=== PATIENT | male | born 1960 | race Caucasian/White ===

== ENCOUNTER 2020-10-05 14:37 | Outpatient (CLI) | payer OTHER ==
--- NOTE | 2020-10-05 15:22 | ULT ---
EXAM: Vein mapping for dialysis access HISTORY: End-stage renal disease. TECHNIQUE: Multiplanar grayscale and color Doppler images were obtained in a bilateral upper extremit y venous ultrasound. Spectral analysis of the Doppler waveforms of the vessels were performed. FINDINGS: The bilateral internal jugular veins and subclavian veins are patent without evidence of th rombus. Right brachial artery 5.6 mm Right radial artery 3.0 mm Right ulnar artery 3.5 mm Left brachial artery 5.0 mm Left radial artery 4.4 mm Left ulnar artery 2.5 mm RIGHT CEPHALIC VEIN in millimeters 3.7 -- Shoulder 4.0 -- Upper arm 3.6 -- Mid upper arm 4.4-- Just proximal to the elbow 3.5 -- Just distal to the elbow 320 -- Forearm 3.6 -- Wrist RIGHT BASILIC VEIN in millimeters Not visualized -- Shoulder Not visualized -- Upper arm 2.1 -- Mid upper arm 1.8 -- Just proximal to the elbow 3.0 -- Just distal to the elbow 1.9 -- Forearm 1.0 -- Wrist LEFT CEPHALIC VEIN in millimeters 3.5 -- Shoulder 1.5 -- Upper arm 1.7 -- Mid upper arm 1.9 -- Just proximal to the elbow 1.6 -- Just distal to the elbow 1.8 -- Forearm 1.2 -- Wrist LEFT BASILIC VEIN in millimeters Not visualized -- Shoulder 7.2 -- Upper arm 4.9 -- Mid upper arm 5.2 -- Just proximal to the elbow 1.4 -- Just distal to the elbow 1.9 -- Forearm 1.9 -- Wrist IMPRESSION: Vein mapping for dialysis access as above
== END 2020-10-05 14:38 | disposition home or self-care (01) ==
LOC: ULT 14:37
PROVIDERS: ATTEND Internal Medicine Nephrology
DX: N18.5 Chronic kidney disease, stage 5 (principal)
CPT/HCPCS: 93970

== ENCOUNTER 2020-10-14 10:22 | Inpatient (IN) | payer OTHER ==
--- NOTE | 2020-10-14 11:21 | RAD ---
Exam: Chest one view HISTORY:Dyspnea. Swelling. Comparison: 08/02/2017 FINDINGS: Cardiac silhouette:Mild cardiomegaly. Aorta: Unremarkable Pulmonary vessels: Mild pulmonary vascular congestion Costophrenic angles: Clear LUNGS: No masses or consolidation. Pneumothorax: None Osseous abnormalities: None IMPRESSION: Cardia megaly. Pulmonary vascular congestion. Volume overload.
[2020-10-14 11:43] LABS: #Basophils 0.1 thou/uL (0.0-0.2); #Eosinphils 0.7 thou/uL (0.0-0.7); #Lymphocytes 1.6 thou/uL (1.20-3.40); #Monocytes 1.4 thou/uL (0.11-0.59); #Neutrophils 10.7 thou/uL (1.40-6.50); %Basophils 0.9 % (0.0-1.0); %Eosinophils 4.7 % (0.0-10.0); %Lymphocytes 10.8 % (21.0-51.0); %Monocytes 9.8 % (0.0-10.0); %Neutrophils 73.8 % (42.0-75.0); Mean Corpuscular HGB CONC 32.8 g/dL (32.0-36.0); Mean Corpuscular Hemoglobin 33.3 pg (27.0-31.0); Mean Platelet Volume 8.4 fL (7.4-10.4); Platelet Count 274 thou/uL (130-400); RBC Distribution Width 12.4 % (11.5-14.5); Red Blood Cell (RBC) Count 2.09 mill/uL (4.70-6.10); White Blood Cell (WBC) Count 14.5 thou/uL (4.8-10.8)
[2020-10-14 11:43] LABS: ALT (SGPT) 9 U/L (8-55); AST (SGOT) 7 U/L (5-34); Albumin 3.4 g/dL (3.5-5.0); Alkaline Phosphatase 63 U/L (40-110); Anion Gap 22 mmol/L (10-20); BUN (Urea Nitrogen) 73 mg/dL (8.4-25.7); Bilirubin, Total 0.2 mg/dL (0.2-1.2); Calc. Creatinine Clearance 0 mL/min (70-130); Calcium 7.9 mg/dL (7.8-10.44); Carbon Dioxide 14 mmol/L (22-29); Chloride 108 mmol/L (98-107); Globulin 3.6 g/dL (2.4-3.5); Glucose 121 mg/dL (70-105); Sodium 139 mmol/L (136-145)
[2020-10-14 11:46] LABS: Band 3 % (5-11); Eosinophils 4 % (0-10); Lymphocytes 9 % (21-51); MDiff Complete? YES; Metamyelocyte 5 % (0-0); Monocytes 7 % (0-10); Myelocyte 5 % (0-0); Neutrophil 66 % (42-75); Reactive Lymphocytes 1 % (0-10)
[2020-10-14] MEDS ORDERED: CEFAZOLIN 2 GM in Premix Bag 1 BAG IVPB SCH (12:30)
[2020-10-14] MEDS ORDERED: Heparin 10,000 UNITS/ 10 ML VIAL ONE (12:50)
--- NOTE | 2020-10-14 14:04 | PDOC.HHP ---
Hospitalist GAVINO CAMPOS History of Present Illness: Mr. Marroquin is a 60-year-old male with past medical history of hypertension, hyperlipidemia, asthma, end-stage renal disease not yet on dialysis, renal cancer status post right nephrectomy, partial left nephrectomy, status post splenectomy who presents emergency room for worsening swelling and shortness of breath. Patient was supposed to have a tunneled dialysis placed next week to initiate dialysis, however over the past few days he has had worsening lower extremity swelling and this morning developed shortness of breath. Patient denies chest pain, palpitations. He endorses vague abdominal pain, denies nausea vomiting diarrhea. In emergency room initial vital signs 168/91, 95, 97% on room air. EKG shows sinus tachycardia with no ST segment changes, troponin 0.026. WBC 14.5, H/H 7.0/41.2. BUN/CR 73/9.35, sodium 139, potassium 5.0. Bicarb 14. Anion gap 22. Central line was placed for urgent dialysis in the emergency room. Patient follows with Dr. Schulz of nephrology. Allergies/Adverse Reactions: Allergy/AdvReac Type Severity Reaction Status Date / Time No Known Allergies Allergy Unverified 10/14/20 12:24 Home Medications: Medication Instructions Recorded Confirmed Type ALButerol Sulfate [Ventolin Neb] 1 vial NEB TID 10/15/20 10/15/20 History Albuterol Sulfate [Proair 2 puff IH Q6H PRN 10/15/20 10/15/20 History Digihaler] Amlodipine [Norvasc] 10 mg PO DAILY 10/15/20 10/15/20 History Atorvastatin Calcium 40 mg PO DAILY 10/15/20 10/15/20 History Metoclopramide HCl 1 tab PO TID 10/15/20 10/15/20 History Phenytoin Sodium Extended 3 cap PO HS 10/15/20 10/15/20 History [Dilantin ER] Ranolazine [Ranexa] 1 tab PO BID 10/15/20 10/15/20 History Torsemide 3 tab PO DAILY 10/15/20 10/15/20 History Hospitalist Exam General Appearance: NAD, awake alert General - other findings: Anasarca Eye: PERRL, anicteric sclera ENT: normocephalic atraumatic, no oropharyngeal lesions, moist mucosa Neck: supple, symmetric, no carotid bruit, JVD Heart: RRR, no murmur, no gallops, no rubs, normal peripheral pulses Heart - other findings: Distant heart sounds Respiratory: no tachypnea Respiratory - other findings: Lungs with rhonchi bilaterally, abnormal chest expansion Gastrointestinal: no palpable masses, no guarding, tender to palpation, distended, diminished bowl sounds Gastrointestinal - other findings: Abdomen severely distended with flank bulging Extremities: 2+ LE edema Extremities - other findings: Significant pitting edema bilaterally Skin: normal turgor Neurological: cranial nerve grossly intact, normal sensation to touch, no weakness, no focal deficits, no new deficit Musculoskeletal: normal tone, normal strength, no muscle wasting Psychiatric: normal affect, normal behavior, A&O x 3 Hospitalist Results Result Diagrams: 10/19/20 05:10 10/19/20 05:10 Lab results: WBC 14.5 thou/uL (4.8-10.8) H 10/14/20 11:02 Hgb 7.0 g/dL (14.0-18.0) L 10/14/20 11:02 Hct 21.2 % (42.0-52.0) L 10/14/20 11:02 MCV 101.0 fL (78.0-98.0) H 10/14/20 11:02 Plt Count 274 thou/uL (130-400) 10/14/20 11:02 Neutrophils % 73.8 % (42.0-75.0) 10/14/20 11:02 Band Neuts % (Manual) 3 % (5-11) L 10/14/20 11:02 Sodium 139 mmol/L (136-145) 10/14/20 10:51 Potassium 5.0 mmol/L (3.5-5.1) 10/14/20 10:51 Chloride 108 mmol/L (98-107) H 10/14/20 10:51 Carbon Dioxide 14 mmol/L (22-29) L 10/14/20 10:51 BUN 73 mg/dL (8.4-25.7) H 10/14/20 10:51 Creatinine 9.35 mg/dL (0.7-1.3) H 10/14/20 10:51 Glucose 121 mg/dL (70-105) H 10/14/20 10:51 Calcium 7.9 mg/dL (7.8-10.44) 10/14/20 10:51 Total Bilirubin 0.2 mg/dL (0.2-1.2) 10/14/20 10:51 AST 7 U/L (5-34) 10/14/20 10:51 ALT 9 U/L (8-55) 10/14/20 10:51 Alkaline Phosphatase 63 U/L (40-110) 10/14/20 10:51 Troponin I 0.026 ng/mL (< 0.028) 10/14/20 10:51 B-Natriuretic Peptide 170.7 pg/mL (0-100) H 10/14/20 10:51 Serum Total Protein 7.0 g/dL (6.0-8.3) 10/14/20 10:51 Albumin 3.4 g/dL (3.5-5.0) L 10/14/20 10:51 Hospitalist H&P A/P Plan: Anasarca 60-year-old male past medical history of hypertension, hyperlipidemia, asthma end-stage renal not yet on dialysis, renal cancer who presents in acute fluid overload. Patient was scheduled to have fistula and catheter placement next week, however he developed worsening fluid overload and shortness of breath prompting him to present to the emergency room. Chest x-ray with vascular congestion, patient diffusely anasarca, exam with ascites, 2+ pitting edema. BNP 170.7, although can be falsley low in patient's with obesity. Will obtain cardiac echo to assess EF. Central line was placed in emergency room for emergent dialysis. Patient follows with Dr. Schulz of nephrology. Dr. Loco is on-call today who will initiate dialysis. Patient still makes urine, will start on IV lasix. Plan -IV Lasix Urgent dialysis -Cardiac echo Nephrology consult Supplemental oxygen as needed Dyspnea P/w dyspnea, orthopnea. CXR showed vascular congestion. Patient overtly fluid overloaded on exam 2/2 ESRD not yet on dialysis. Makes scant amount of urine. BNP 170.7. Currently maintaining O2 saturation on RA. COVID pending. Plan -COVID pending -Supplemental O2 PRN -Urgent dialysis, treatment as above Ascites Patient with prominent abdominal ascites. Likely 2/2 fluid overload in setting of ESRD. Given hx of renal cancer, some concern for portal vein thrombosis or thrombotic extension from kidney's to IVC. Will obtain CT abdomen/pelvis scan. LFTs wnl AST/ALT /. Alk phos 63. Plan -Urgent dialysis -CT abdomen pelvis -Trend LFTs Leukocytosis WBC 14.5. Afebrile. No obvious source of infection. Will check UCx, Sputum Cx, blood Cx. Low suspicion for infectious process at this time. Lactic acid 1.0. Will trend and closely monitor. Plan -STAT lactic acid -IV abx, will hold on IVF given pt's overload status -Follow blood cx -De-escalate abx when possible -Trend WBC, fever curve Anion gap metabolic acidosis Anion gap metabolic acidosis. Anion gap 22. Likely secondary to uremia. BUN/CR 73/9.35. Will check stat lactic acid and continue to monitor. Patient's respiratory status is stable. Plan Trend electrolytes, calcium, Phos Tox screen Stat lactic acid Nephrology consulted, recommendations appreciated End-stage renal disease History of ESRD not yet on dialysis. Plans for dialysis next week. Follows with Dr. Schulz. See plan as above. Anemia of chronic disease Patient with anemia of chronic disease secondary to end-stage renal disease. H/H 7.0/21.2. Patient denies dizziness, lightheadedness. Denies melena, hematochezia. Will hold off on transfusion since patient is severely fluid overloaded. We will continue to trend and transfuse as needed. Will consult nephrology for question of EPO initiation. Plan Trend H&H Transfuse for hemoglobin less than 7.0 Nephrology consult History of renal cancer History of renal cancer status post right nephrectomy, left partial nephrectomy. Patient is not on active chemotherapy treatment. He does have a family history of this. Given patient's history of renal cancer concern for coagulopathy. We will continue patient on SQ heparin. Patient's SOB likely 2/2 fluid overload, although patient is at increased risk of clotting. Will pursue CT scan of abdomen to assess for portal vein thrombosis or clot propagation of IVC. Plan -CT scan -DVT prophylaxis with sq heparin Asthma Hx of asthma/COPD. Will continue home advair and make albuterol nebs available. Hyperlipidemia Will continue home statin, once meds reconciled. Hypertension Will continue home medications once meds are reconciled. DVT prophylaxis- SQ Heparin FULL CODE
[2020-10-14 14:17] LABS: SARS-CoV-2 NAA Rapid Test Not Detected (NotDetected)
[2020-10-14] MEDS ORDERED: Vancomycin 1 GM in Premix Bag 1 BAG IVPB SCH (14:45)
[2020-10-14] MEDS ORDERED: Iopamidol-370 76% 500 ML 1 ML ONE (15:00)
[2020-10-14] MEDS ORDERED: Furosemide 100 MG/10 ML VIAL SLOW IVP SCH (15:00)
[2020-10-14] MEDS ORDERED: diphenhydrAMINE 50 MG/ML VIAL IVP SCH (16:00)
[2020-10-14 16:33] LABS: Hemoglobin 6.5 g/dL (14.0-18.0)
--- NOTE | 2020-10-14 16:36 | CT ---
EXAM: CT Chest Abd Pelvis W Con PROVIDED CLINICAL HISTORY: Dyspnea COMPARISON: CT abdomen and pelvis 11/04/2012 FINDINGS: The heart, pericardium and great vessels demonstrate an unremarkable CT appearance, with the exceptio n of coronary calcium. There is trace pericardial fluid. There is a small amount of pleural fluid bilaterally. The lungs are free of significant opacity. Ther e is no evidence for pneumothorax. The airway appears patent and of normal caliber. There is no evidence for thoracic lymph node enlargement. There are innumerable subcentimeter hypodense foci involving the right kidney, statistically reflecti ng cysts but too small to definitively characterize. In addition, there is a suspected 2.6 cm mass involving the anterior aspect of the midportion of the right kidney. The spleen and left kidney are surgically absent. Presumed splenule seen within the left upper quadra nt posteriorly. The pancreas, liver and adrenal glands appear unremarkable. There is no bowel dilatation, inflammatory fat stranding, free fluid or lymph node enlargement appare nt. A right femoral venous catheter is noted, the tip of which terminates in the right common iliac vein. The regional major vascular structures appear otherwise unremarkable. The osseous structures demonstrate no concerning lytic or blastic lesions. IMPRESSION: 1. Trace bilateral pleural fluid and trace pericardial fluid. 2. Suspected right renal mass. Correlation with renal ultrasound is recommended. 3. No evidence for additional potentially acute process involving abdomen and pelvis.
[2020-10-14 16:39] LABS: INR-International Normal Ratio 1.1; PTT 27.7 sec (22.9-36.1); Prothrombin Time 14.6 sec (12.0-14.7)
[2020-10-14 17:02] LABS: Calcium 7.6 mg/dL (7.8-10.44); Phosphorus 7.2 mg/dL (2.3-4.7)
[2020-10-14 17:22] LABS: HBSAg Index 0.26 S/CO (0-0.99); Hep B Surf Ag Non-Reactive S/CO (NonReactive)
[2020-10-14 18:25] LABS: Acetaminophen Less than 6.0 mcg/mL (10.0-30.0); Alcohol Less than 10 mg/dL (Less than 10); Magnesium 1.7 mg/dL (1.6-2.6); Salicylate Less than 8.0 mg/dL (15.0-30.0)
[2020-10-14] MEDS: Heparin 5,000 UNITS/ML VIAL SC SCH ×2 (19:22→21:27)
--- NOTE | 2020-10-14 19:56 | CON ---
DATE OF CONSULTATION: 10/14/2020 CONSULTING PHYSICIAN: Abbey Lewis PA-C REASON FOR CONSULTATION: Worsening renal labs. REASON FOR ADMISSION: Shortness of breath. HISTORY OF PRESENT ILLNESS: This is a 60-year-old male with history of chronic kidney disease stage 5, hypertension, hyperlipidemia, asthma, and history of right nephrectomy, who came to the hospital with shortness of breath and worsening edema. The patient has been followed by Dr. Schulz, has been having worsening labs. He was followed for CKD stage 5, but lately he has been having more shortness of breath, more swelling, was advised to come to the hospital to begin dialysis and the patient showed up today to the ER and lab shows that his GFR is around 6, creatinine is 9.3, potassium 5.0. He was also anemic. PAST MEDICAL HISTORY: Positive for chronic kidney disease, stage 5; hypertension; hyperlipidemia; asthma; and renal cell carcinoma. PAST SURGICAL HISTORY: Left partial nephrectomy, right nephrectomy, and splenectomy. HOME MEDICATIONS: Reviewed. ALLERGIES: NO KNOWN DRUG ALLERGIES. SOCIAL HISTORY: No smoking, alcohol, or illicit drugs abuse. FAMILY HISTORY: The patient's daughter also had renal disease and she was on dialysis and she had transplant. REVIEW OF SYSTEMS: CONSTITUTIONAL: Negative for weight loss or gain, ability to conduct usual activities. SKIN: Negative for rash, itching. EYES: Negative for double vision, pain. ENT/MOUTH: Negative for nose bleeding, neck stiffness, pain, tenderness. CARDIOVASCULAR: Negative for palpitations, dyspnea on exertion, orthopnea. RESPIRATORY: Negative for shortness of breath, wheezing, cough, hemoptysis, fever or night sweats. GASTROINTESTINAL: Negative for poor appetite, abdominal pain, heartburn, nausea, vomiting, constipation, or diarrhea. GENITOURINARY: Negative for urgency, frequency, dysuria, nocturia. MUSCULOSKELETAL: Negative for pain, swelling. NEUROLOGIC/PSYCHIATRIC: Negative for anxiety, depression. ALLERGY/IMMUNOLOGIC: Negative for skin rash, bleeding tendency. PHYSICAL EXAMINATION: GENERAL: This is a well-built male, in no apparent distress. VITAL SIGNS: Reviewed. HEENT: Atraumatic, normocephalic. Oral mucosa moist. NECK: Supple. CV: S1, S2. Rate and rhythm are regular. RESPIRATORY: Clear. GASTROINTESTINAL: Abdomen is soft, distended. MUSCULOSKELETAL: 2+ edema. DERMATOLOGIC: No skin rash. NEUROLOGICAL: Alert and awake. PSYCHIATRIC: Mood and affect normal. LABORATORY DATA: Potassium 5.0, BUN is 73, and creatinine is 9.3. ASSESSMENT AND PLAN: 1. End-stage renal disease. Plan to start dialysis. The patient already had dialysis catheter. 2. Edema. 3. History of hypertension. 4. Proteinuria. 5. Anemia of chronic disease. We will add Epogen. PLAN: 1. To start on dialysis. We will have PPD skin test and also dialysis panel. We will have Case Management consult for outpatient placement. 2. We will start Epogen with dialysis. We will follow. Job ID: [id number]
[2020-10-14] MEDS ORDERED: Cefepime 2 GM in Sodium Chloride 0.9% 100 ML IVPB SCH (21:00)
[2020-10-15 00:08] VITALS: BMI 46.5
[2020-10-15] MEDS: Acetaminophen 325 MG TAB PO PRN ×3 (00:09→23:38)
[2020-10-15] MEDS: hydrALAZINE 20 MG/ML VIAL SLOW IVP PRN ×4 (00:29→23:39)
[2020-10-15 02:24] LABS: Hemoglobin 7.4 g/dL (14.0-18.0)
[2020-10-15 03:42] LABS: #Basophils 0.1 thou/uL (0.0-0.2); #Eosinphils 0.4 thou/uL (0.0-0.7); #Lymphocytes 2.1 thou/uL (1.20-3.40); #Monocytes 1.8 thou/uL (0.11-0.59); #Neutrophils 9.6 thou/uL (1.40-6.50); %Basophils 0.7 % (0.0-1.0); %Eosinophils 2.8 % (0.0-10.0); %Lymphocytes 14.9 % (21.0-51.0); %Monocytes 12.6 % (0.0-10.0); Hemoglobin 7.4 g/dL (14.0-18.0); Mean Corpuscular HGB CONC 33.1 g/dL (32.0-36.0); Mean Corpuscular Hemoglobin 32.1 pg (27.0-31.0); Mean Platelet Volume 9.1 fL (7.4-10.4); Platelet Count 248 thou/uL (130-400); RBC Distribution Width 13.8 % (11.5-14.5)
[2020-10-15 04:05] LABS: Anion Gap 20 mmol/L (10-20); BUN (Urea Nitrogen) 54 mg/dL (8.4-25.7); Calc. Creatinine Clearance 21 mL/min (70-130); Calcium 7.9 mg/dL (7.8-10.44); Carbon Dioxide 15 mmol/L (22-29); Chloride 106 mmol/L (98-107); Glucose 75 mg/dL (70-105); Potassium 4.3 mmol/L (3.5-5.1); Sodium 137 mmol/L (136-145)
[2020-10-15 04:19] LABS: HBSAB Concentration Less than 8.00 mIU/mL; Hep B Core Total Ab Non-Reactive (NonReactive); Hep B Core Total Index 0.09 S/CO (0-0.79); Hep B Surf AB Non-Reactive (NonReactive); Hep B Surf Ag Non-Reactive S/CO (NonReactive); Hep C IgG Ab Non-Reactive (NonReactive); Hep C Index 0.12 S/CO (0-0.79)
[2020-10-15 06:57] LABS: Bacteria/HPF None Seen HPF (None Seen); Bilirubin Negative (Negative); Blood, Urine 1+ (Negative); Clarity Clear (Clear); Glucose, Urine (Dipstick) 30 mg/dL (Negative); Ketone, Urine Negative (Negative); Leukocyte 25 Leu/uL (Negative); Nitrite Negative (Negative); Protein, Urine (Dipstick) 200 mg/dL (Neg-Trace); RBC/HPF 0-3 HPF (0-3); Squamous Epithelial 0-3 HPF (0-3); Urobilinogen Normal mg/dL (Less than 2)
--- NOTE | 2020-10-15 07:36 | PDOC.HOSPP ---
- Subjective Encounter Date: 10/15/20 Encounter Time: 10:00 Subjective: Patient reports some mild shortness of breath on and off but mostly resolved since dialysis. No other complaints. - Objective Vital Signs & Weight: Vital Signs (12 hours) Temp Pulse Pulse Resp BP BP BP 10/15/20 06:25 99 173/86 H 10/15/20 03:20 98.3 F 98 16 173/88 H 10/15/20 00:29 97 177/91 H 10/15/20 00:15 98 F 97 16 177/91 H 10/14/20 22:01 98.2 F 96 20 155/92 H 10/14/20 21:34 98.3 F 96 20 167/89 H 10/14/20 20:20 98.3 F 96 20 167/89 H Pulse Ox 10/15/20 06:25 10/15/20 03:20 94 L 10/15/20 00:29 10/15/20 00:15 95 10/14/20 22:01 95 10/14/20 21:34 94 L 10/14/20 20:20 95 Weight Weight 315 lb 0.649 oz I&O: 10/14/20 10/15/20 10/16/20 06:59 06:59 06:59 Intake Total 350 Balance 350 Result Diagrams: 10/15/20 08:20 10/15/20 02:16 Hospitalist ROS - Review of Systems Constitutional: denies: fever, chills Respiratory: reports: shortness of breath. denies: cough Cardiovascular: denies: chest pain, palpitations Gastrointestinal: denies: nausea, vomiting - Medication Medications: Active Medications Generic Name Dose Route Start Last Admin Trade Name Freq PRN Reason Stop Dose Admin Acetaminophen 650 mg 10/14/20 22:49 10/15/20 00:09 Acetaminophen 325 Mg Tab PO 650 mg Q4H PRN Administration Fever/Mild Pain Heparin Sodium (Porcine) 5,000 units 10/14/20 15:00 10/14/20 21:27 Heparin 5,000 Units/Ml Vial SC 5,000 units TID JD Administration Hydralazine HCl 10 mg 10/14/20 17:22 10/15/20 06:25 Hydralazine 20 Mg/Ml Vial SLOW IVP 10 mg Q4H PRN Administration SBP GREATER THAN 160 Sodium Chloride 10 ml 10/14/20 17:34 01/23/21 06:26 Flush - Normal Saline 10 Ml Syringe IVF 10 ml PRN PRN Administration Saline Flush - Exam General Appearance: NAD, awake alert ENT: moist mucosa Heart: RRR, no murmur, no gallops, no rubs Respiratory: CTAB, no wheezes, no rales, no ronchi Gastrointestinal: soft, non-tender, non-distended, normal bowel sounds Psychiatric: normal affect, normal behavior, A&O x 3 Hosp A/P - Plan Anasarca 60-year-old male past medical history of hypertension, hyperlipidemia, asthma end-stage renal not yet on dialysis, renal cancer who presents in acute fluid overload. Patient was scheduled to have fistula and catheter placement next week, however he developed worsening fluid overload and shortness of breath prompting him to present to the emergency room. Chest x-ray with vascular congestion, patient diffusely anasarca, exam with ascites, 2+ pitting edema. BNP 170.7, although can be falsley low in patient's with obesity. Will obtain cardiac echo to assess EF. Central line was placed in emergency room for emergent dialysis. Patient follows with Dr. Schulz of nephrology. Dr. Loco is on-call and decided to initiate dialysis. Plan Urgent dialysis -Cardiac echo Nephrology consulted Supplemental oxygen as needed Dyspnea P/w dyspnea, orthopnea. CXR showed vascular congestion. Patient overtly fluid overloaded on exam 2/2 ESRD not yet on dialysis. Makes scant amount of urine. BNP 170.7. Currently maintaining O2 saturation on RA. COVID negative. Plan -Supplemental O2 PRN -improved with dialysis Ascites Patient with prominent abdominal ascites. Likely 2/2 fluid overload in setting of ESRD. Given hx of renal cancer, some concern for portal vein thrombosis or thrombotic extension from kidney's to IVC. Will obtain CT abdomen/pelvis scan. LFTs wnl AST/ALT /. Alk phos 63. Plan -Urgent dialysis -CT abdomen pelvis with renal mass Leukocytosis WBC 14.5. Afebrile. No obvious source of infection. Will check UCx, Sputum Cx, blood Cx. Low suspicion for infectious process at this time. Lactic acid 1.0. Will trend and closely monitor. Plan -STAT lactic acid -IV abx, will hold on IVF given pt's overload status -Follow blood cx- no growth to date -no fever and WBC unchanged, will d/c antibiotics Anion gap metabolic acidosis Anion gap metabolic acidosis. Anion gap 22. Likely secondary to uremia. BUN/CR 73/9.35. Will check stat lactic acid and continue to monitor. Patient's respiratory status is stable. Plan Trend electrolytes, calcium, Phos Tox screen Stat lactic acid Nephrology consulted, recommendations appreciated End-stage renal disease History of ESRD not yet on dialysis. Plans for dialysis next week. Follows with Dr. Schulz. See plan as above. Anemia of chronic disease Patient with anemia of chronic disease secondary to end-stage renal disease. H/H dropped so given one unit PRBC. May need EPO. Plan Trend H&H Transfuse for hemoglobin less than 7.0 Dr. Loco following History of renal cancer History of renal cancer status post right nephrectomy, left partial nephrectomy. Patient is not on active chemotherapy treatment. He does have a family history of this. Given patient's history of renal cancer concern for coagulopathy. We will continue patient on SQ heparin. Patient's SOB likely 2/2 fluid overload, although patient is at increased risk of clotting. CT without evidence of portal vein thrombosis. Plan -CT scan with renal mass -DVT prophylaxis with sq heparin Asthma Hx of asthma/COPD. Will continue home Advair and make albuterol nebs available. Hyperlipidemia Will continue home statin. Hypertension Will continue home medications. DVT prophylaxis- SQ Heparin FULL CODE CT Chest Abd Pelvis W Con IMPRESSION: 1. Trace bilateral pleural fluid and trace pericardial fluid. 2. Suspected right renal mass. Correlation with renal ultrasound is recommended. 3. No evidence for additional potentially acute process involving abdomen and pelvis.
[2020-10-15] MEDS: Tuberculin PPD 0.1 ML VIAL I-DERMAL SCH ×2 (07:38→22:13)
[2020-10-15] MEDS ORDERED: Non-Formulary Item 1 EACH (Albuterol Sulfate [Proair Digihaler] 90 MCG Aer.Pw.Bas) IH PRN (07:41)
[2020-10-15] MEDS ORDERED: Albuterol 200 PUFF (6.7GM INHALER) INH PRN (07:45)
[2020-10-15 08:53] LABS: Hemoglobin 8.1 g/dL (14.0-18.0)
[2020-10-15] MEDS ORDERED: Non-Formulary Item 1 EACH (Metoclopramide Hcl [Metoclopramide Hcl] 5 MG Tablet) PO SCH (09:00)
[2020-10-15] MEDS: Amlodipine 10 MG TAB PO SCH (09:43)
[2020-10-15] MEDS: Heparin 5,000 UNITS/ML VIAL SC SCH ×3 (09:43→20:54)
[2020-10-15] MEDS: Metoclopramide HCl 10 MG TAB PO SCH ×3 (09:43→20:54)
[2020-10-15] MEDS: Atorvastatin Calcium 40 MG TAB PO SCH (09:43)
[2020-10-15] MEDS ORDERED: Heparin 10,000 UNITS/ 10 ML VIAL ONE (12:47)
--- NOTE | 2020-10-15 18:48 | PRG ---
DATE OF SERVICE: 10/15/2020 SUBJECTIVE: Patient was seen and examined at bedside and overnight events noted. Patient denies any shortness of breath or chest pain or palpitation. No history of nausea or vomiting or diarrhea or fever or chills or cramps. OBJECTIVE: General: This is a well-built male, in no apparent distress. Vital Signs: Temperature . Heart rate 103. Respiratory rate 18. Blood pressure 178/97. HEENT: Atraumatic, normocephalic. Oral mucosa is moist. Neck: Supple. Cardiovascular: S1, S2 heard. Rate and rhythm regular. Respiratory: Clear to auscultation. Gastrointestinal: Abdomen is soft. Musculoskeletal: No tenderness. No edema. Dermatologic: No skin rash. Neurologic: Alert and awake and oriented x3. No focal neurologic deficits. Moving all the extremities. Psychiatric: Mood and affect normal. LABORATORY DATA: Potassium 4.3, BUN is 54, and creatinine is 7.4. ASSESSMENT AND PLAN: 1. End-stage renal disease. Continue dialysis as tolerated. 2. Edema. 3. Hypertension. 4. Anemia. I will add Epogen. 5. Follow up with case management director for outpatient placement. We will continue dialysis as tolerated. Job ID: [id number]
[2020-10-15] MEDS: EPOETIN ALFA-EPBX (ESRD) 10,000 UNIT/ML VIAL IVP SCH (20:54)
[2020-10-15 22:51] LABS: Hemoglobin 7.9 g/dL (14.0-18.0)
[2020-10-16] MEDS: hydrALAZINE 20 MG/ML VIAL SLOW IVP PRN ×2 (05:36→14:30)
[2020-10-16 06:55] LABS: Anion Gap 17 mmol/L (10-20); BUN (Urea Nitrogen) 37 mg/dL (8.4-25.7); Calc. Creatinine Clearance 27 mL/min (70-130); Calcium 8.2 mg/dL (7.8-10.44); Carbon Dioxide 21 mmol/L (22-29); Chloride 101 mmol/L (98-107); Glucose 110 mg/dL (70-105); Potassium 4.1 mmol/L (3.5-5.1); Sodium 135 mmol/L (136-145)
[2020-10-16 06:56] LABS: Band 2 % (5-11); Eosinophils 1 % (0-10); Hemoglobin 8.1 g/dL (14.0-18.0); Hypochromia SLIGHT = 6-15 cells (100X) (0-5/hpf); Lymphocytes 9 % (21-51); MDiff Complete? YES; Mean Corpuscular HGB CONC 32.5 g/dL (32.0-36.0); Mean Corpuscular Hemoglobin 31.4 pg (27.0-31.0); Mean Corpuscular Volume 96.7 fL (78.0-98.0); Mean Platelet Volume 8.6 fL (7.4-10.4); Monocytes 15 % (0-10); Neutrophil 73 % (42-75); Platelet Count 254 thou/uL (130-400); Platelet Morphology Comment Appears Adequate; RBC Distribution Width 13.9 % (11.5-14.5); Red Blood Cell (RBC) Count 2.58 mill/uL (4.70-6.10); White Blood Cell (WBC) Count 15.8 thou/uL (4.8-10.8)
[2020-10-16] MEDS: Atorvastatin Calcium 40 MG TAB PO SCH (09:32)
[2020-10-16] MEDS: Amlodipine 10 MG TAB PO SCH (09:32)
[2020-10-16] MEDS: Heparin 5,000 UNITS/ML VIAL SC SCH ×3 (09:32→20:20)
[2020-10-16] MEDS: Metoclopramide HCl 10 MG TAB PO SCH ×3 (09:32→20:20)
--- NOTE | 2020-10-16 15:37 | PRG ---
DATE OF SERVICE: 10/16/2020 SUBJECTIVE: Patient was seen and examined at bedside and overnight events noted. Patient denies any shortness of breath or chest pain or palpitation. No history of nausea or vomiting or diarrhea or fever or chills or cramps. OBJECTIVE: General: This is a well built male, in no apparent distress. Vital Signs: blood pressure 176/99. HEENT: Atraumatic, normocephalic. Oral mucosa is moist. Neck: Supple. Cardiovascular: S1, S2 heard. Rate and rhythm regular. Respiratory: Clear to auscultation. Gastrointestinal: Abdomen is soft. Musculoskeletal: No tenderness. No edema. Dermatologic: No skin rash. Neurologic: Alert and awake and oriented x3. No focal neurologic deficits. Moving all the extremities. Psychiatric: Mood and affect normal. LABORATORY DATA: Potassium 4.1, BUN 37, creatinine 5.8. ASSESSMENT AND PLAN: 1. End-stage renal disease. Continue dialysis. Follow with surgeon for access placement. Follow with Case Management for outpatient placement. 2. Edema. 3. History of hypertension. 4. Anemia, on YULIA as tolerated. 5. Follow up with surgeon for access placement next week. Job ID: [id number]
--- NOTE | 2020-10-16 18:35 | PDOC.HOSPP ---
- Subjective Encounter Date: 10/16/20 Encounter Time: 11:00 Subjective: Patient seen and examined for generalized anasarca/MARYSOL requiring hemodialysis. Denies any new complaints. Some shortness of breath on exertion which is improving. No chest pain, palpitations or fever reported. - Objective Vital Signs & Weight: Vital Signs (12 hours) Temp Pulse Resp BP BP Pulse Ox 10/16/20 18:06 153/77 H 10/16/20 15:35 98.5 F 106 H 16 166/95 H 94 L 10/16/20 14:30 172/93 H 10/16/20 11:25 98.2 F 98 16 176/99 H 95 10/16/20 07:30 98.2 F 107 H 16 177/98 H 93 L Weight Weight 315 lb 0.649 oz I&O: 10/15/20 10/16/20 10/17/20 06:59 06:59 06:59 Intake Total 284 139 8606 Balance 485 347 7969 Result Diagrams: 10/17/20 05:56 10/17/20 05:56 Additional Labs: Abnormal Lab Results - Last 48 hrs 10/14/20 17:42: Crossmatch See Detail 10/15/20 02:16: Hgb 7.4 L, Hct 22.3 L 10/15/20 02:16: Carbon Dioxide 15 L, BUN 54 H, Creatinine 7.49 H 10/15/20 02:16: WBC 14.0 H, RBC 2.30 L, Hgb 7.4 L, Hct 22.3 L, MCH 32.1 H, Lymphocytes % 14.9 L, Monocytes % 12.6 H, Neutrophils # 9.6 H, Monocytes # 1.8 H 10/15/20 06:20: Urine Protein 200 A, Urine Blood 1+ A, Ur Leukocyte Esterase 25 A, Urine WBC 4-6 A 10/15/20 08:20: Hgb 8.1 L, Hct 24.5 L 10/15/20 14:53: Hgb 8.0 L, Hct 24.5 L 10/15/20 22:36: Hgb 7.9 L, Hct 24.7 L 10/16/20 06:10: Sodium 135 L, Carbon Dioxide 21 L, BUN 37 H, Creatinine 5.85 H 10/16/20 06:10: WBC 15.8 H, RBC 2.58 L, Hgb 8.1 L, Hct 25.0 L, MCH 31.4 H, Band Neuts % (Manual) 2 L, Lymphocytes % (Manual) 9 L, Monocytes % (Manual) 15 H Microbiology - Entire Visit 10/14/20 16:16 Dialysis - Right Common Femoral Vein Blood Culture - Preliminary NO GROWTH AT 48 HOURS 10/14/20 16:20 Venous blood - Left Hand Blood Culture - Preliminary NO GROWTH AT 48 HOURS Radiology Reviewed by me: Yes (Chest x-rayvolume overload) Hospitalist ROS - Review of Systems Cardiovascular: denies: chest pain, palpitations, orthopnea, paroxysmal noc. dyspnea, edema, light headedness, other Gastrointestinal: denies: nausea, vomiting, abdominal pain, diarrhea, constipation, melena, hematochezia, other - Medication Medications: Active Medications Generic Name Dose Route Start Last Admin Trade Name Freq PRN Reason Stop Dose Admin Acetaminophen 650 mg 10/14/20 22:49 10/15/20 23:38 Acetaminophen 325 Mg Tab PO 650 mg Q4H PRN Administration Fever/Mild Pain Amlodipine Besylate 10 mg 10/15/20 09:00 10/16/20 09:32 Amlodipine 10 Mg Tab PO 10 mg DAILY JD Administration Atorvastatin Calcium 40 mg 10/15/20 09:00 10/16/20 09:32 Atorvastatin Calcium 40 Mg Tab PO 40 mg DAILY JD Administration Epoetin Chester-epbx 10,000 unit 10/15/20 20:00 10/15/20 20:54 Epoetin Chester-Epbx (Esrd) 10,000 Unit/Ml Vial IVP 10,000 unit TuThSa JD Administration Heparin Sodium (Porcine) 5,000 units 10/14/20 15:00 10/16/20 14:29 Heparin 5,000 Units/Ml Vial SC 5,000 units TID JD Administration Hydralazine HCl 10 mg 10/14/20 17:22 10/16/20 14:30 Hydralazine 20 Mg/Ml Vial SLOW IVP 10 mg Q4H PRN Administration SBP GREATER THAN 160 Metoclopramide HCl 10 mg 10/15/20 09:00 10/16/20 14:29 Metoclopramide Hcl 10 Mg Tab PO 10 mg TID JD Administration Phenytoin Sodium 300 mg 10/15/20 21:00 10/15/20 20:53 Phenytoin Sodium Extended 100 Mg Cap PO 300 mg HS JD Administration Ranolazine 500 mg 10/15/20 09:00 10/16/20 09:32 Ranolazine 500 Mg Tab PO 500 mg BID JD Administration Sodium Chloride 10 ml 10/14/20 17:34 10/15/20 06:26 Flush - Normal Saline 10 Ml Syringe IVF 10 ml PRN PRN Administration Saline Flush Tuberculin PPD 0.1 ml 10/14/20 20:00 10/15/20 22:13 Tuberculin Ppd 0.1 Ml Vial I-DERMAL 10/17/20 20:01 Not Given NOW JD - Exam General Appearance: awake alert Heart: RRR, no gallops Respiratory: no wheezes, no rales Gastrointestinal: soft, non-distended Extremities: no cyanosis, 2+ LE edema Neurological: no new deficit Musculoskeletal: generalized weakness Psychiatric: A&O x 3 Hosp A/P - Plan DVT proph w/SCDs Generalized anasarca/volume overload End-stage renal diseasestarted on hemodialysis Hypertension Chronic anemia probably due to renal insufficiency Questionable right renal massfurther work-up per nephrology/PCP Morbid obesity with a BMI 46.5 Hyponatremia Metabolic acidosis due to renal insufficiency Secondary hyperparathyroidism Chronic diastolic dysfunction Plan: Continue hemodialysis per nephrology. Continue amlodipine with Ranexa. Patient was counseled on fluid restriction. Dialysis access in a.m. Continue hemodialysis perNephrology. Removal of femoral dialysis catheterAfter tunneled catheter placement. A.m. labs.
[2020-10-16] MEDS: Tuberculin PPD 0.1 ML VIAL I-DERMAL SCH (20:29)
[2020-10-17] MEDS: hydrALAZINE 20 MG/ML VIAL SLOW IVP PRN ×2 (05:48→14:23)
[2020-10-17 06:23] LABS: #Basophils 0.1 thou/uL (0.0-0.2); #Eosinphils 0.7 thou/uL (0.0-0.7); #Lymphocytes 2.3 thou/uL (1.20-3.40); #Monocytes 2.4 thou/uL (0.11-0.59); #Neutrophils 10.5 thou/uL (1.40-6.50); %Basophils 0.7 % (0.0-1.0); %Eosinophils 4.5 % (0.0-10.0); %Lymphocytes 14.5 % (21.0-51.0); %Monocytes 14.9 % (0.0-10.0); %Neutrophils 65.4 % (42.0-75.0); Hemoglobin 8.1 g/dL (14.0-18.0); Mean Corpuscular HGB CONC 31.8 g/dL (32.0-36.0); Mean Corpuscular Hemoglobin 31.2 pg (27.0-31.0); Mean Corpuscular Volume 97.9 fL (78.0-98.0); Mean Platelet Volume 8.9 fL (7.4-10.4); Platelet Count 236 thou/uL (130-400); RBC Distribution Width 13.8 % (11.5-14.5); Red Blood Cell (RBC) Count 2.59 mill/uL (4.70-6.10); White Blood Cell (WBC) Count 16.1 thou/uL (4.8-10.8)
[2020-10-17 06:39] LABS: Anion Gap 17 mmol/L (10-20); BUN (Urea Nitrogen) 42 mg/dL (8.4-25.7); Calc. Creatinine Clearance 22 mL/min (70-130); Calcium 8.3 mg/dL (7.8-10.44); Carbon Dioxide 21 mmol/L (22-29); Chloride 103 mmol/L (98-107); Glucose 98 mg/dL (70-105); Potassium 4.1 mmol/L (3.5-5.1); Sodium 137 mmol/L (136-145)
[2020-10-17] MEDS: Atorvastatin Calcium 40 MG TAB PO SCH (09:00)
[2020-10-17] MEDS: Amlodipine 10 MG TAB PO SCH (09:00)
[2020-10-17] MEDS: Metoclopramide HCl 10 MG TAB PO SCH ×3 (09:00→21:57)
[2020-10-17] MEDS: Heparin 5,000 UNITS/ML VIAL SC SCH ×3 (09:00→21:57)
[2020-10-17] MEDS ORDERED: Protamine Sulfate 50 MG/5 ML VIAL ONE (09:44)
[2020-10-17] MEDS ORDERED: Sodium Chloride 0.9% 20 ML ONE (09:44)
[2020-10-17] MEDS ORDERED: Heparin 5,000 UNITS/ML VIAL ONE (09:44)
[2020-10-17] MEDS ORDERED: Fentanyl 100 MCG/2 ML VIAL ONE ×2 (09:45→09:53)
[2020-10-17] MEDS ORDERED: Bupivacaine 0.25% HCL 30 ML VIAL ONE (09:45)
[2020-10-17] MEDS ORDERED: EPINEPHrine 1 MG/ML AMP ONE (09:45)
[2020-10-17] MEDS ORDERED: Heparin 10,000 UNITS/ 10 ML VIAL ONE (09:45)
[2020-10-17] MEDS ORDERED: Sodium Chloride 0.9% 10 ML ONE (09:49)
[2020-10-17] MEDS ORDERED: Midazolam HCl 2 mg/2 ml Vial ONE (09:53)
[2020-10-17] MEDS ORDERED: Propofol 500 MG/50 ML VIAL ONE (09:53)
[2020-10-17] MEDS ORDERED: Bupivacaine HCl 0.5%/Epinephrine 1:200,000/PF 30 ml Vial ONE (11:27)
[2020-10-17] MEDS ORDERED: PROPOFOL 200 MG/20 ML VIAL ONE (11:27)
[2020-10-17] MEDS ORDERED: Ondansetron PF 4 MG/2 ML Vial ONE (11:27)
[2020-10-17] MEDS ORDERED: Ondansetron HCl/PF 4 MG/2 ML Vial IVP PRN (11:56)
[2020-10-17] MEDS ORDERED: Promethazine HCl 25 MG/ML VIAL SLOW IVP PRN (11:56)
[2020-10-17] MEDS ORDERED: Promethazine HCl 25 MG/ML VIAL IM PRN (11:56)
--- NOTE | 2020-10-17 12:14 | OP ---
DATE OF PROCEDURE: 10/17/2020 PREOPERATIVE DIAGNOSES: 1. End-stage renal disease. 2. Poor IV access. POSTOPERATIVE DIAGNOSES: 1. End-stage renal disease. 2. Poor IV access. PROCEDURES PERFORMED: 1. Left internal jugular triple-lumen catheter. 2. Right internal jugular cuffed tunneled hemodialysis catheter. 3. Right wrist Clemencia fistula, cephalic vein to side radial artery at the wrist with 4-mm coronary dilator calibration. ANESTHESIA: Regional, right arm, TIVA, local with 0.5% Marcaine 30 mL, mixed with 1% Xylocaine with epinephrine 20 mL. DESCRIPTION OF PROCEDURE: The patient was taken to the operating room where under intravenous sedation and regional anesthesia, neck and chest and right upper extremity were prepared with ChloraPrep and draped in routine fashion. Local anesthetic was infiltrated in the skin and subcutaneous tissue about the port sites. Ultrasound used to cannulate the right and left internal jugular veins with a large trocar needle and J-wire was threaded, trocar catheter removed. Skin site enlarged sharply, stab incision made over the right chest using the tunneling device, pre-curved [employer] cuffed tunneled hemodialysis catheter tunneled between the 2 incisions, placing the fabric cuff beneath the skin exit site at right chest and catheter secured with 2 interrupted sutures of 3-0 nylon and sterile dressings applied. Small and medium-sized dilators placed over the J-wire and removed. Dilator and Peel-Away sheath placed over the J-wire into the superior vena cava. Dilator and J-wire removed. Catheter placed with Peel-Away sheath. Peel-Away sheath removed. Platysma was approximated with 4-0 Monocryl, skin with subdermal 4-0 Monocryl, and [employer] glue applied. Each port aspirated blood, flushed with saline solution and heparinized saline solution with 1000 units of heparin per mL, indicating volume of the port. On the left side, Seldinger technique used to place a triple-lumen catheter, securing it with 3-0 nylon suture, removing the J-wire, aspirated each port of blood, flushed with saline solution. Fluoroscopic images revealed good line placement on each side. Attention was then turned to the right wrist where incision was made longitudinally between the radial artery and cephalic vein, both of which were dissected free. The cephalic vein ligated on hand side with real silk suture, divided, spatulated, interrogated with coronary dilators, placing coronary dilators from 2 mm to 4 mm coronary dilator out the cephalic vein outflow tract without obstruction. Branches were divided between 4-0 silk ties and clips as it was mobilized. Radial artery dissected free of good quality and the patient given 6000 units of heparin intravenously. Radial artery clamped proximally and distally. Longitudinal arteriotomy made sharply, elongated with the Crow scissors for a 2.5 to 3 cm anastomosis between the side radial artery and the end cephalic vein, which was spatulated, performing the anastomosis with continuous suture of 6-0 Prolene. Vascular clamps were released. Good hemostasis was gained with 6-0 Prolene. Good Doppler signal noted throughout the cephalic vein in the forearm. The patient tolerated the procedure well. Subcutaneous tissue was approximated with 3-0 Monocryl, skin with subdermal 4-0 Monocryl, and [employer] glue applied. Job ID: [id number]
--- NOTE | 2020-10-17 12:17 | RAD ---
Exam: Chest one view HISTORY:Central line placement. Comparison: 10/14/2020 FINDINGS: Cardiac silhouette:Cardiomegaly. Lungs Lines and tubes: Right-sided HemoSplit dialysis catheter terminates over the region of the superior v james cava. Left-sided jugular vascular catheter also terminates in the region of the superior vena cava. Aorta: Unremarkable Pulmonary vessels: Normal Costophrenic angles: Left pleural effusion LUNGS: Right changes left lung base Pneumothorax: None Osseous abnormalities: None IMPRESSION: 1. Pleural and parenchymal changes left lung base 2. Vascular catheters as above. No pneumothorax.
[2020-10-17] MEDS: READ PPD TEST SITE PO SCH ×2 (16:57→23:15)
--- NOTE | 2020-10-17 19:32 | PRG ---
DATE OF SERVICE: 10/17/2020 SUBJECTIVE: A 60-year-old gentleman being seen for end-stage renal disease. The patient denies any nausea, vomiting, or chest pain. OBJECTIVE: GENERAL: The patient is awake and alert. VITAL SIGNS: , breathing 16, blood pressure 152/92. HEENT: Head normocephalic and atraumatic. Eyes intact, no ulcers. Nose intact, no ulcers. Ears intact, no ulcers. Neck: Supple. No JVD. Chest: Symmetrical and clear. Cardiovascular: Shows S1 and S2, no rub, no murmur. Gastrointestinal: Abdomen is soft, bowel sounds positive. Extremities: Show no edema or ulcers. Skin: Shows no rash or petechiae. Musculoskeletal: Shows no joint swelling or stiffness. Genitourinary: Shows no Ba or CVA tenderness. Neurologic: Motor intact. Cranial nerves intact. LABORATORY DATA: Reviewed. ASSESSMENT AND PLAN: 1. Stage 6 chronic kidney disease, stable. 2. Hypertension, stable. 3. Anemia, stable. 4. Medication based on GFR appropriate. 5. Discharge planning is in progress. Job ID: [id number]
[2020-10-17] MEDS: traMADol HCl 50 MG TAB PO PRN (19:39)
[2020-10-17] MEDS: Acetaminophen 500 MG TAB PO PRN (19:40)
--- NOTE | 2020-10-17 21:36 | PDOC.HOSPP ---
- Subjective Encounter Date: 10/17/20 Encounter Time: 15:00 Subjective: Patient seen and examined for volume overload requiring initiation of hemodialysis. Underwent Tunneled dialysis catheter earlier today. Denies any chest pain or shortness of breath. - Objective Vital Signs & Weight: Vital Signs (12 hours) Temp Pulse Resp BP BP Pulse Ox 10/17/20 14:23 100 177/92 H 10/17/20 12:20 98.1 F 110 H 20 152/92 H 95 Weight Weight 315 lb 0.649 oz I&O: 10/16/20 10/17/20 10/18/20 06:59 06:59 06:59 Intake Total 660 1470 200 Balance 660 1470 200 Result Diagrams: 10/17/20 05:56 10/17/20 05:56 Additional Labs: Abnormal Lab Results - Last 48 hrs 10/15/20 22:36: Hgb 7.9 L, Hct 24.7 L 10/16/20 06:10: Sodium 135 L, Carbon Dioxide 21 L, BUN 37 H, Creatinine 5.85 H 10/16/20 06:10: WBC 15.8 H, RBC 2.58 L, Hgb 8.1 L, Hct 25.0 L, MCH 31.4 H, Band Neuts % (Manual) 2 L, Lymphocytes % (Manual) 9 L, Monocytes % (Manual) 15 H 10/17/20 05:56: Carbon Dioxide 21 L, BUN 42 H, Creatinine 7.35 H 10/17/20 05:56: WBC 16.1 H, RBC 2.59 L, Hgb 8.1 L, Hct 25.4 L, MCH 31.2 H, MCHC 31.8 L, Lymphocytes % 14.5 L, Monocytes % 14.9 H, Neutrophils # 10.5 H, Monocytes # 2.4 H Microbiology - Entire Visit 10/14/20 16:16 Dialysis - Right Common Femoral Vein Blood Culture - Preliminary NO GROWTH AT 48 HOURS 10/14/20 16:20 Venous blood - Left Hand Blood Culture - Preliminary NO GROWTH AT 48 HOURS Radiology Reviewed by me: Yes (Chest x-rayno infiltrate) Hospitalist ROS - Review of Systems Cardiovascular: denies: chest pain, palpitations, orthopnea, paroxysmal noc. dyspnea, edema, light headedness, other Gastrointestinal: denies: nausea, vomiting, abdominal pain, diarrhea, constipation, melena, hematochezia, other - Medication Medications: Active Medications Generic Name Dose Route Start Last Admin Trade Name Freq PRN Reason Stop Dose Admin Acetaminophen 1,000 mg 10/17/20 14:02 10/17/20 19:40 Acetaminophen 500 Mg Tab PO 1,000 mg Q6H PRN Administration Moderate to Severe Pain (6-10) Amlodipine Besylate 10 mg 10/15/20 09:00 10/17/20 09:00 Amlodipine 10 Mg Tab PO Not Given DAILY [facility] Atorvastatin Calcium 40 mg 10/15/20 09:00 10/17/20 09:00 Atorvastatin Calcium 40 Mg Tab PO Not Given DAILY JD Epoetin Chester-epbx 10,000 unit 10/15/20 20:00 10/15/20 20:54 Epoetin Chester-Epbx (Esrd) 10,000 Unit/Ml Vial IVP 10,000 unit TuThSa JD Administration Heparin Sodium (Porcine) 5,000 units 10/14/20 15:00 10/17/20 15:25 Heparin 5,000 Units/Ml Vial SC 5,000 units TID JD Administration Hydralazine HCl 10 mg 10/14/20 17:22 10/17/20 14:23 Hydralazine 20 Mg/Ml Vial SLOW IVP 10 mg Q4H PRN Administration SBP GREATER THAN 160 Metoclopramide HCl 10 mg 10/15/20 09:00 10/17/20 15:25 Metoclopramide Hcl 10 Mg Tab PO 10 mg TID JD Administration Phenytoin Sodium 300 mg 10/15/20 21:00 10/16/20 20:19 Phenytoin Sodium Extended 100 Mg Cap PO 300 mg HS JD Administration Ranolazine 500 mg 10/15/20 09:00 10/17/20 09:00 Ranolazine 500 Mg Tab PO Not Given BID JD Sodium Chloride 10 ml 10/14/20 17:34 10/15/20 06:26 Flush - Normal Saline 10 Ml Syringe IVF 10 ml PRN PRN Administration Saline Flush Tramadol HCl 50 mg 10/17/20 11:51 10/17/20 19:39 Tramadol Hcl 50 Mg Tab PO 50 mg Q4H PRN Administration Pain - Exam General Appearance: awake alert Neck: supple Heart: RRR, no gallops Respiratory: no wheezes, no ronchi Gastrointestinal: soft, non-distended Extremities: no cyanosis Neurological: no weakness Musculoskeletal: generalized weakness Hosp A/P - Plan DVT proph w/SCDs Generalized anasarca/volume overload End-stage renal diseasestarted on hemodialysis Hypertension Chronic anemia probably due to renal insufficiency Questionable right renal massfurther work-up per nephrology/PCP Morbid obesity with a BMI 46.5 Hyponatremia Metabolic acidosis due to renal insufficiency Secondary hyperparathyroidism Chronic diastolic dysfunction Plan: Underwent tunneled dialysis catheter placement today. Continue hemodialysis. Outpatient dialysis setup per nephrology. Blood cultures negative. Continue current dose of amlodipine, Ranexa and other medications as above. Add prn antihypertensives. A.m. labs.
[2020-10-17] MEDS ORDERED: hydrALAZINE 20 MG/ML VIAL SLOW IVP PRN (21:38)
[2020-10-17] MEDS: Tuberculin PPD 0.1 ML VIAL I-DERMAL SCH (23:15)
[2020-10-18] MEDS: traMADol HCl 50 MG TAB PO PRN (03:11)
[2020-10-18 06:08] LABS: Band 2 % (5-11); Hypochromia SLIGHT = 6-15 cells (100X) (0-5/hpf); Lymphocytes 12 % (21-51); MDiff Complete? YES; Mean Corpuscular Hemoglobin 32.6 pg (27.0-31.0); Mean Corpuscular Volume 98.9 fL (78.0-98.0); Mean Platelet Volume 8.7 fL (7.4-10.4); Monocytes 8 % (0-10); Neutrophil 78 % (42-75); Platelet Count 229 thou/uL (130-400); Platelet Morphology Comment Appears Adequate; RBC Distribution Width 13.9 % (11.5-14.5); Red Blood Cell (RBC) Count 2.46 mill/uL (4.70-6.10); White Blood Cell (WBC) Count 16.4 thou/uL (4.8-10.8)
[2020-10-18 06:27] LABS: Anion Gap 15 mmol/L (10-20); BUN (Urea Nitrogen) 24 mg/dL (8.4-25.7); Calc. Creatinine Clearance 32 mL/min (70-130); Calcium 8.3 mg/dL (7.8-10.44); Carbon Dioxide 27 mmol/L (22-29); Chloride 98 mmol/L (98-107); Glucose 90 mg/dL (70-105); Potassium 4.1 mmol/L (3.5-5.1); Sodium 136 mmol/L (136-145)
[2020-10-18] MEDS: Acetaminophen 500 MG TAB PO PRN (06:29)
--- NOTE | 2020-10-18 07:39 | PDOC.HOSPP ---
- Subjective Encounter Date: 10/18/20 Encounter Time: 10:00 Subjective: Patient denies complaints. No shortness of breath or chest pain. Awaiting outpatient hemodialysis to be set up. Patient has not seen his oncologist in over a year at [facility]. Patient states he tried to see an oncologist here in [place] however they stated that he was too complicated. - Objective Vital Signs & Weight: Vital Signs (12 hours) Temp Pulse Resp BP Pulse Ox 10/18/20 03:24 98.3 F 101 H 18 148/67 H 92 L 10/17/20 23:02 98.3 F 104 H 18 133/71 92 L 10/17/20 21:45 98.5 F 104 H 18 112/65 94 L Weight Weight 315 lb 0.649 oz I&O: 10/17/20 10/18/20 10/19/20 06:59 06:59 06:59 Intake Total 1470 620 Balance 1470 620 Result Diagrams: 10/18/20 05:25 10/18/20 05:25 Hospitalist ROS - Review of Systems Constitutional: denies: fever, chills Respiratory: denies: cough, shortness of breath Cardiovascular: denies: chest pain, palpitations Gastrointestinal: denies: nausea, vomiting, abdominal pain - Medication Medications: Active Medications Generic Name Dose Route Start Last Admin Trade Name Freq PRN Reason Stop Dose Admin Acetaminophen 1,000 mg 10/17/20 14:02 10/18/20 06:29 Acetaminophen 500 Mg Tab PO 1,000 mg Q6H PRN Administration Moderate to Severe Pain (6-10) Amlodipine Besylate 10 mg 10/15/20 09:00 10/17/20 09:00 Amlodipine 10 Mg Tab PO Not Given DAILY JD Atorvastatin Calcium 40 mg 10/15/20 09:00 10/17/20 09:00 Atorvastatin Calcium 40 Mg Tab PO Not Given DAILY JD Epoetin Chester-epbx 10,000 unit 10/15/20 20:00 10/15/20 20:54 Epoetin Chester-Epbx (Esrd) 10,000 Unit/Ml Vial IVP 10,000 unit TuThSa JD Administration Heparin Sodium (Porcine) 5,000 units 10/14/20 15:00 10/17/20 21:57 Heparin 5,000 Units/Ml Vial SC 5,000 units TID JD Administration Hydralazine HCl 10 mg 10/14/20 17:22 10/17/20 14:23 Hydralazine 20 Mg/Ml Vial SLOW IVP 10 mg Q4H PRN Administration SBP GREATER THAN 160 Metoclopramide HCl 10 mg 10/15/20 09:00 10/17/20 21:57 Metoclopramide Hcl 10 Mg Tab PO 10 mg TID JD Administration Phenytoin Sodium 300 mg 10/15/20 21:00 10/17/20 21:57 Phenytoin Sodium Extended 100 Mg Cap PO 300 mg HS JD Administration Ranolazine 500 mg 10/15/20 09:00 10/17/20 21:57 Ranolazine 500 Mg Tab PO 500 mg BID JD Administration Sodium Chloride 10 ml 10/14/20 17:34 10/15/20 06:26 Flush - Normal Saline 10 Ml Syringe IVF 10 ml PRN PRN Administration Saline Flush Tramadol HCl 50 mg 10/17/20 11:51 10/18/20 03:11 Tramadol Hcl 50 Mg Tab PO 50 mg Q4H PRN Administration Pain Hospitalist Exam Vitals: Vital Signs (12 hours) Temp Pulse Resp BP Pulse Ox 10/18/20 03:24 98.3 F 101 H 18 148/67 H 92 L 10/17/20 23:02 98.3 F 104 H 18 133/71 92 L 10/17/20 21:45 98.5 F 104 H 18 112/65 94 L Weight Weight 315 lb 0.649 oz General Appearance: NAD, awake alert ENT: moist mucosa Heart: RRR, no murmur, no gallops, no rubs Respiratory: CTAB, no wheezes, no rales, no ronchi Respiratory - other findings: Right tunneled hemodialysis catheter in place Gastrointestinal: soft, non-tender, non-distended, normal bowel sounds Extremities: no edema Extremities - other findings: Right upper extremity with AV fistula incision well closed Psychiatric: normal affect, normal behavior, A&O x 3 Hosp A/P - Plan Anasarca 60-year-old male past medical history of hypertension, hyperlipidemia, asthma end-stage renal not yet on dialysis, renal cancer who presents in acute fluid overload. Patient was scheduled to have fistula and catheter placement next week, however he developed worsening fluid overload and shortness of breath prompting him to present to the emergency room. Chest x-ray with vascular congestion, patient diffusely anasarca, exam with ascites, 2+ pitting edema. BNP 170.7, although can be falsley low in patient's with obesity. Will obtain cardiac echo to assess EF. Central line was placed in emergency room for emergent dialysis. Dr. Schulz following and dialyzing. Tunneled HD cath placed. Plan Continue dialysis -Cardiac echo- EF 55-60% with diastolic dysfunction Dr. Schulz following, will need outpatient HD set up Supplemental oxygen as needed- now on room air Dyspnea P/w dyspnea, orthopnea. CXR showed vascular congestion. Patient overtly fluid overloaded on exam 2/2 ESRD not yet on dialysis. Makes scant amount of urine. BNP 170.7. Currently maintaining O2 saturation on RA. COVID negative. Plan -Supplemental O2 PRN- on RA now after started dialysis Ascites Patient with prominent abdominal ascites. Likely 2/2 fluid overload in setting of ESRD. Given hx of renal cancer, some concern for portal vein thrombosis or thrombotic extension from kidney's to IVC. Will obtain CT abdomen/pelvis scan. LFTs wnl AST/ALT 03/31. Alk phos 63. Plan -Urgent dialysis -CT abdomen pelvis with renal mass- will need workup by nephrology/PCP Leukocytosis Stable without evidence of infection or sepsis. Plan -Follow blood cx- no growth to date -no fever and WBC unchanged, d/c'd antibiotics End-stage renal disease On Dialysis, tunneled HD cath placed Anemia of chronic disease Patient with anemia of chronic disease secondary to end-stage renal disease. H/H dropped so given one unit PRBC. May need EPO. Plan Trend H&H Transfuse for hemoglobin less than 7.0 Dr. Schulz following History of renal cancer History of renal cancer status post right nephrectomy, left partial nephrectomy. Patient is not on active chemotherapy treatment. He does have a family history of this. Given patient's history of renal cancer concern for coagulopathy. We will continue patient on SQ heparin. Patient's SOB likely 2/2 fluid overload, although patient is at increased risk of clotting. CT without evidence of portal vein thrombosis. Plan -CT scan with renal mass- need outpatient f/u by nephrology/PCP and then referral back down to his oncologist in [place] -DVT prophylaxis with sq heparin Asthma Hx of asthma/COPD. Will continue home Advair and make albuterol nebs available. Hyperlipidemia Will continue home statin. Hypertension Will continue home medications. DVT prophylaxis- SQ Heparin FULL CODE CT Chest Abd Pelvis W Con IMPRESSION: 1. Trace bilateral pleural fluid and trace pericardial fluid. 2. Suspected right renal mass. Correlation with renal ultrasound is recommended. 3. No evidence for additional potentially acute process involving abdomen and pelvis.
[2020-10-18] MEDS: Metoclopramide HCl 10 MG TAB PO SCH ×3 (08:37→20:16)
[2020-10-18] MEDS: Amlodipine 10 MG TAB PO SCH (08:37)
[2020-10-18] MEDS: Atorvastatin Calcium 40 MG TAB PO SCH (08:38)
[2020-10-18] MEDS: Heparin 5,000 UNITS/ML VIAL SC SCH ×3 (08:39→20:16)
--- NOTE | 2020-10-18 12:43 | PRG ---
DATE OF SERVICE: 10/18/2020 SUBJECTIVE: A 60-year-old gentleman, being seen for end-stage renal disease. The patient denied nausea, vomiting, or chest pain. OBJECTIVE: GENERAL: The patient is awake and alert. VITAL SIGNS: Afebrile, pulse 76, breathing at 16, blood pressure 199/66. HEENT: Head normocephalic and atraumatic. Eyes intact, no ulcers. Nose intact, no ulcers. Ears intact, no ulcers. NECK: Supple. No JVD. CHEST: Symmetrical and clear. CARDIOVASCULAR: Shows S1 and S2, no rub, no murmur. GASTROINTESTINAL: Abdomen is soft, bowel sounds positive. EXTREMITIES: Show no edema or ulcers. SKIN: Shows no rash or petechiae. MUSCULOSKELETAL: Shows no joint swelling or stiffness. GENITOURINARY: Shows no Ba or CVA tenderness. NEUROLOGIC: Motor intact. Cranial nerves intact. LABORATORY DATA: Hemoglobin 8. Potassium 4.1. ASSESSMENT AND PLAN: 1. Chronic kidney disease, stage 6, stable. 2. Hypertension, stable. 3. Anemia, stable. 4. Medication based on GFR appropriate. Discharge planning is in progress. Job ID: [id number]
[2020-10-18] MEDS: EPOETIN ALFA-EPBX (ESRD) 10,000 UNIT/ML VIAL IVP SCH (20:13)
[2020-10-19] MEDS: Acetaminophen 500 MG TAB PO PRN (01:28)
[2020-10-19 05:36] LABS: Band 2 % (5-11); Eosinophils 2 % (0-10); Hemoglobin 7.9 g/dL (14.0-18.0); Lymphocytes 12 % (21-51); MDiff Complete? YES; Mean Corpuscular HGB CONC 31.7 g/dL (32.0-36.0); Mean Corpuscular Hemoglobin 31.5 pg (27.0-31.0); Mean Corpuscular Volume 99.3 fL (78.0-98.0); Mean Platelet Volume 8.5 fL (7.4-10.4); Metamyelocyte 2 % (0-0); Monocytes 14 % (0-10); Myelocyte 1 % (0-0); Neutrophil 67 % (42-75); Platelet Count 244 thou/uL (130-400); Platelet Morphology Comment Appears Adequate; RBC Distribution Width 13.7 % (11.5-14.5); Red Blood Cell (RBC) Count 2.51 mill/uL (4.70-6.10); White Blood Cell (WBC) Count 15.1 thou/uL (4.8-10.8)
[2020-10-19 05:47] LABS: Anion Gap 18 mmol/L (10-20); BUN (Urea Nitrogen) 37 mg/dL (8.4-25.7); Calc. Creatinine Clearance 23 mL/min (70-130); Calcium 8.4 mg/dL (7.8-10.44); Carbon Dioxide 25 mmol/L (22-29); Chloride 97 mmol/L (98-107); Glucose 88 mg/dL (70-105); Potassium 3.9 mmol/L (3.5-5.1); Sodium 136 mmol/L (136-145)
--- NOTE | 2020-10-19 07:28 | PDOC.HOSPP ---
- Subjective Encounter Date: 10/19/20 Encounter Time: 08:30 Subjective: Patient without complaints. No events overnight. Patient awaiting outpatient hemodialysis placement - Objective Vital Signs & Weight: Vital Signs (12 hours) Temp Pulse Resp BP Pulse Ox 10/19/20 03:16 98.3 F 100 18 149/83 H 94 L 10/18/20 23:04 98.2 F 101 H 18 143/80 H 94 L 10/18/20 20:00 94 L Weight Weight 315 lb 0.649 oz I&O: 10/18/20 10/19/20 10/20/20 06:59 06:59 06:59 Intake Total 620 1270 Balance 620 1270 Result Diagrams: 10/19/20 05:10 10/19/20 05:10 Hospitalist ROS - Review of Systems Constitutional: denies: fever, chills Respiratory: denies: cough, shortness of breath Cardiovascular: denies: chest pain, palpitations Gastrointestinal: denies: nausea, vomiting, abdominal pain - Medication Medications: Active Medications Generic Name Dose Route Start Last Admin Trade Name Freq PRN Reason Stop Dose Admin Acetaminophen 1,000 mg 10/17/20 14:02 10/19/20 01:28 Acetaminophen 500 Mg Tab PO 1,000 mg Q6H PRN Administration Moderate to Severe Pain (6-10) Amlodipine Besylate 10 mg 10/15/20 09:00 10/18/20 08:37 Amlodipine 10 Mg Tab PO 10 mg DAILY JD Administration Atorvastatin Calcium 40 mg 10/15/20 09:00 10/18/20 08:38 Atorvastatin Calcium 40 Mg Tab PO 40 mg DAILY JD Administration Epoetin Chester-epbx 10,000 unit 10/15/20 20:00 10/18/20 20:13 Epoetin Chester-Epbx (Esrd) 10,000 Unit/Ml Vial IVP 10,000 unit TuThSa JD Administration Heparin Sodium (Porcine) 5,000 units 10/14/20 15:00 10/18/20 20:16 Heparin 5,000 Units/Ml Vial SC 5,000 units TID JD Administration Hydralazine HCl 10 mg 10/17/20 21:38 10/18/20 08:42 Hydralazine 20 Mg/Ml Vial SLOW IVP 10 mg Q4H PRN Administration SBP GREATER THAN 160 Metoclopramide HCl 10 mg 10/15/20 09:00 10/18/20 20:16 Metoclopramide Hcl 10 Mg Tab PO 10 mg TID JD Administration Phenytoin Sodium 300 mg 10/15/20 21:00 10/18/20 20:15 Phenytoin Sodium Extended 100 Mg Cap PO 300 mg HS JD Administration Ranolazine 500 mg 10/15/20 09:00 10/18/20 20:15 Ranolazine 500 Mg Tab PO 500 mg BID JD Administration Sodium Chloride 10 ml 10/14/20 17:34 10/15/20 06:26 Flush - Normal Saline 10 Ml Syringe IVF 10 ml PRN PRN Administration Saline Flush Tramadol HCl 50 mg 10/17/20 11:51 10/18/20 03:11 Tramadol Hcl 50 Mg Tab PO 50 mg Q4H PRN Administration Pain Hospitalist Exam Vitals: Vital Signs (12 hours) Temp Pulse Resp BP Pulse Ox 10/19/20 03:16 98.3 F 100 18 149/83 H 94 L 10/18/20 23:04 98.2 F 101 H 18 143/80 H 94 L 10/18/20 20:00 94 L Weight Weight 315 lb 0.649 oz General Appearance: NAD, awake alert ENT: moist mucosa Heart: RRR, no murmur, no gallops, no rubs Heart - other findings: Right tunneled hemodialysis catheter in place Respiratory: CTAB, no wheezes, no rales, no ronchi Gastrointestinal: soft, non-tender, non-distended, normal bowel sounds Extremities - other findings: Incisions from right AV fistula healing well Psychiatric: normal affect, normal behavior, A&O x 3 Hosp A/P - Plan Anasarca 60-year-old male past medical history of hypertension, hyperlipidemia, asthma end-stage renal not yet on dialysis, renal cancer who presents in acute fluid overload. Patient was scheduled to have fistula and catheter placement next week, however he developed worsening fluid overload and shortness of breath prompting him to present to the emergency room. Chest x-ray with vascular congestion, patient diffusely anasarca, exam with ascites, 2+ pitting edema. BNP 170.7, although can be falsley low in patient's with obesity. Will obtain cardiac echo to assess EF. Central line was placed in emergency room for emergent dialysis. Dr. Schulz following and dialyzing. Tunneled HD cath placed. Plan Continue dialysis -Cardiac echo- EF 55-60% with diastolic dysfunction Dr. Schulz following, will need outpatient HD set up Supplemental oxygen as needed- now on room air Dyspnea P/w dyspnea, orthopnea. CXR showed vascular congestion. Patient overtly fluid overloaded on exam 2/2 ESRD not yet on dialysis. Makes scant amount of urine. BNP 170.7. Currently maintaining O2 saturation on RA. COVID negative. Plan -Supplemental O2 PRN- on RA now after started dialysis Ascites Patient with prominent abdominal ascites. Likely 2/2 fluid overload in setting of ESRD. Given hx of renal cancer, some concern for portal vein thrombosis or thrombotic extension from kidney's to IVC. Will obtain CT abdomen/pelvis scan. LFTs wnl AST/ALT 03/31. Alk phos 63. Plan -Urgent dialysis -CT abdomen pelvis with right renal mass- will need workup by nephrology/PCP Leukocytosis Stable without evidence of infection or sepsis. Plan -Follow blood cx- no growth to date -no fever and WBC unchanged, d/c'd antibiotics End-stage renal disease On Dialysis, tunneled HD cath placed Anemia of chronic disease Patient with anemia of chronic disease secondary to end-stage renal disease. H/H dropped so given one unit PRBC. May need EPO. Plan Trend H&Hstable Transfuse for hemoglobin less than 7.0 Dr. Schulz following History of renal cancer History of renal cancer status post right nephrectomy, left partial nephrectomy. Patient is not on active chemotherapy treatment. He does have a family history of this. Given patient's history of renal cancer concern for coagulopathy. We will continue patient on SQ heparin. Patient's SOB likely 2/2 fluid overload, although patient is at increased risk of clotting. CT without evidence of portal vein thrombosis. Plan -CT scan with right renal mass- need outpatient f/u by nephrology/PCP and then referral back down to his oncologist in [place] -DVT prophylaxis with sq heparin Asthma Hx of asthma/COPD. Will continue home Advair and make albuterol nebs available. Hyperlipidemia Will continue home statin. Hypertension Will continue home medications. DVT prophylaxis- SQ Heparin FULL CODE Disposition Awaiting outpatient hemodialysis. Then may discharge and have follow-up in [place] at [facility] about renal cancer. CT Chest Abd Pelvis W Con IMPRESSION: 1. Trace bilateral pleural fluid and trace pericardial fluid. 2. Suspected right renal mass. Correlation with renal ultrasound is recommended. 3. No evidence for additional potentially acute process involving abdomen and pelvis.
[2020-10-19] MEDS: Amlodipine 10 MG TAB PO SCH (08:08)
[2020-10-19] MEDS: Metoclopramide HCl 10 MG TAB PO SCH ×3 (08:08→20:17)
[2020-10-19] MEDS: Atorvastatin Calcium 40 MG TAB PO SCH (08:08)
[2020-10-19] MEDS: Heparin 5,000 UNITS/ML VIAL SC SCH ×3 (08:10→20:18)
--- NOTE | 2020-10-19 09:30 | PRG ---
DATE OF SERVICE: 10/19/2020 SUBJECTIVE: A 60-year-old male, being seen for end-stage renal disease. The patient denied nausea, vomiting, or chest pain. PHYSICAL EXAMINATION: GENERAL: The patient is awake and alert. VITAL SIGNS: Afebrile, pulse 75, breathing at 16, blood pressure 149/83. HEENT: Head normocephalic and atraumatic. Eyes intact, no ulcers. Nose intact, no ulcers. Ears intact, no ulcers. NECK: Supple. No JVD. CHEST: Symmetrical and clear. CARDIOVASCULAR: Shows S1 and S2, no rub, no murmur. GASTROINTESTINAL: Abdomen is soft, bowel sounds positive. EXTREMITIES: Show no edema or ulcers. SKIN: Shows no rash or petechiae. MUSCULOSKELETAL: Shows no joint swelling or stiffness. GENITOURINARY: Shows no Ba or CVA tenderness. NEUROLOGIC: Motor intact. Cranial nerves intact. LABORATORY DATA: Reviewed. ASSESSMENT AND PLAN: 1. Stage 6 chronic kidney disease, plan dialysis. 2. Hypertension, stable. 3. Anemia, stable. Medication based on GFR appropriate. Discharge planning is in progress. Job ID: [id number]
[2020-10-19] MEDS ORDERED: traMADol HCl 50 MG TAB PO PRN (09:37)
[2020-10-19] MEDS ORDERED: Heparin 10,000 UNITS/ 10 ML VIAL ONE (09:46)
--- NOTE | 2020-10-19 18:14 | PRG ---
DATE OF SERVICE: 10/19/2020 Mr. Santosh Marroquin is doing well today. The patient underwent on 10/17/2020, placement of a right Clemencia fistula in wrist. This has good thrill and bruit. looks good. His hand function is good. At this point, I will see him in the office in 3 to 4 weeks. Arm and hand activity as tolerated without restrictions Job ID: [id number]
[2020-10-20] MEDS: Acetaminophen 500 MG TAB PO PRN ×2 (01:13→22:14)
--- NOTE | 2020-10-20 08:52 | PDOC.HOSPP ---
- Subjective Encounter Date: 10/20/20 Encounter Time: 08:46 Subjective: alert, no complaints - Objective Vital Signs & Weight: Vital Signs (12 hours) Temp Pulse Resp BP Pulse Ox 10/20/20 03:45 97.9 F 93 16 154/82 H 93 L 10/19/20 23:34 98.1 F 84 16 151/82 H 96 Weight Weight 315 lb 0.649 oz I&O: 10/19/20 10/20/20 10/21/20 06:59 06:59 06:59 Intake Total 1270 3750 Balance 1270 3750 Result Diagrams: 10/19/20 05:10 10/19/20 05:10 Hospitalist ROS - Medication Medications: Active Medications Generic Name Dose Route Start Last Admin Trade Name Freq PRN Reason Stop Dose Admin Acetaminophen 1,000 mg 10/17/20 14:02 10/20/20 01:13 Acetaminophen 500 Mg Tab PO 1,000 mg Q6H PRN Administration Moderate to Severe Pain (6-10) Amlodipine Besylate 10 mg 10/15/20 09:00 10/19/20 08:08 Amlodipine 10 Mg Tab PO 10 mg DAILY JD Administration Atorvastatin Calcium 40 mg 10/15/20 09:00 10/19/20 08:08 Atorvastatin Calcium 40 Mg Tab PO 40 mg DAILY JD Administration Epoetin Chester-epbx 10,000 unit 10/15/20 20:00 10/18/20 20:13 Epoetin Chester-Epbx (Esrd) 10,000 Unit/Ml Vial IVP 10,000 unit TuThSa JD Administration Heparin Sodium (Porcine) 5,000 units 10/14/20 15:00 10/19/20 20:18 Heparin 5,000 Units/Ml Vial SC 5,000 units TID JD Administration Hydralazine HCl 10 mg 10/17/20 21:38 10/18/20 08:42 Hydralazine 20 Mg/Ml Vial SLOW IVP 10 mg Q4H PRN Administration SBP GREATER THAN 160 Metoclopramide HCl 10 mg 10/15/20 09:00 10/19/20 20:17 Metoclopramide Hcl 10 Mg Tab PO 10 mg TID JD Administration Phenytoin Sodium 300 mg 10/15/20 21:00 10/19/20 20:17 Phenytoin Sodium Extended 100 Mg Cap PO 300 mg HS JD Administration Ranolazine 500 mg 10/15/20 09:00 10/19/20 20:18 Ranolazine 500 Mg Tab PO 500 mg BID JD Administration Sodium Chloride 10 ml 10/14/20 17:34 10/15/20 06:26 Flush - Normal Saline 10 Ml Syringe IVF 10 ml PRN PRN Administration Saline Flush Hospitalist Exam Vitals: Vital Signs (12 hours) Temp Pulse Resp BP Pulse Ox 10/20/20 03:45 97.9 F 93 16 154/82 H 93 L 10/19/20 23:34 98.1 F 84 16 151/82 H 96 Weight Weight 315 lb 0.649 oz General Appearance: awake alert Neck: no JVD Heart: RRR, no murmur Respiratory: CTAB Gastrointestinal: soft, normal bowel sounds Extremities: 1+ LE edema Hosp A/P (1) ESRD (end stage renal disease) on dialysis Code(s): N18.6 - END STAGE RENAL DISEASE; Z99.2 - DEPENDENCE ON RENAL DIALYSIS Status: Acute (2) Anasarca associated with disorder of kidney Code(s): N04.9 - NEPHROTIC SYNDROME WITH UNSPECIFIED MORPHOLOGIC CHANGES Status: Acute (3) Renal mass Code(s): N28.89 - OTHER SPECIFIED DISORDERS OF KIDNEY AND URETER Status: Acute (4) HTN (hypertension) Code(s): I10 - ESSENTIAL (PRIMARY) HYPERTENSION Status: Acute Qualifiers: Hypertension type: essential hypertension Qualified Code(s): I10 - Essential (primary) hypertension (5) Dyslipidemia Code(s): E78.5 - HYPERLIPIDEMIA, UNSPECIFIED Status: Chronic (6) Seizure Code(s): R56.9 - UNSPECIFIED CONVULSIONS Status: Chronic - Plan outpt HD pending cont antihypertensives mera diego
[2020-10-20] MEDS: Atorvastatin Calcium 40 MG TAB PO SCH (09:10)
[2020-10-20] MEDS: Heparin 5,000 UNITS/ML VIAL SC SCH ×3 (09:10→20:21)
[2020-10-20] MEDS: Metoclopramide HCl 10 MG TAB PO SCH ×3 (09:11→20:21)
[2020-10-20] MEDS: Amlodipine 10 MG TAB PO SCH (09:11)
--- NOTE | 2020-10-20 15:07 | PRG ---
DATE OF SERVICE: 10/20/2020 SUBJECTIVE: A 60-year-old male being seen for end-stage kidney disease. The patient denied nausea or chest pain. PHYSICAL EXAMINATION: GENERAL: The patient is awake and alert. VITAL SIGNS: Pulse 96, breathing 16, blood pressure 146/82. HEENT: Head normocephalic and atraumatic. Eyes intact, no ulcers. Nose intact, no ulcers. Ears intact, no ulcers. Neck: Supple. No JVD. Chest: Symmetrical and clear. Cardiovascular: Shows S1 and S2, no rub, no murmur. Gastrointestinal: Abdomen is soft, bowel sounds positive. Extremities: Show no edema or ulcers. Skin: Shows no rash or petechiae. Musculoskeletal: Shows no joint swelling or stiffness. Genitourinary: Shows no Ba or CVA tenderness. Neurologic: Motor intact. Cranial nerves intact. LABORATORY DATA: Reviewed. ASSESSMENT: 1. Chronic kidney disease, stage 6, stable. 2. Hypertension, stable. 3. Anemia, stable. Medication based on GFR appropriate. Job ID: [id number]
[2020-10-20] MEDS: EPOETIN ALFA-EPBX (ESRD) 10,000 UNIT/ML VIAL IVP SCH (20:24)
[2020-10-21] MEDS ORDERED: EPOETIN ALFA-EPBX (ESRD) 10,000 UNIT/ML VIAL IVP SCH ×2 (01:29→20:00)
[2020-10-21] MEDS ORDERED: Bisacodyl 5 MG TAB PO PRN (07:43)
[2020-10-21] MEDS ORDERED: Zolpidem Tartrate 5 MG TAB PO PRN (07:43)
[2020-10-21] MEDS ORDERED: Sodium Chloride 0.65% Nasal 44 ML BOT EA NARE PRN (07:43)
[2020-10-21] MEDS ORDERED: Calcium Carbonate 500 MG ChewTAB PO PRN (07:43)
[2020-10-21] MEDS ORDERED: Cepastat Lozenges 1 LOZ PO PRN (07:43)
[2020-10-21] MEDS ORDERED: GUAIFENESIN SF SOLN 200 MG/10 ML UDCUP PO PRN (07:43)
[2020-10-21] MEDS ORDERED: Loratadine 10 MG TAB PO PRN (07:43)
[2020-10-21] MEDS ORDERED: Senokot S 8.6-50 MG TAB PO PRN (07:43)
[2020-10-21] MEDS ORDERED: Loperamide HCl 2 MG CAP PO PRN (07:43)
[2020-10-21 09:20] LABS: #Basophils 0.1 thou/uL (0.0-0.2); #Eosinphils 1.3 thou/uL (0.0-0.7); #Lymphocytes 1.8 thou/uL (1.20-3.40); #Neutrophils 10.4 thou/uL (1.40-6.50); %Basophils 0.8 % (0.0-1.0); %Lymphocytes 11.8 % (21.0-51.0); %Neutrophils 66.5 % (42.0-75.0); Hemoglobin 8.8 g/dL (14.0-18.0); Mean Corpuscular HGB CONC 31.1 g/dL (32.0-36.0); Mean Corpuscular Hemoglobin 30.9 pg (27.0-31.0); Mean Corpuscular Volume 99.2 fL (78.0-98.0); Mean Platelet Volume 8.3 fL (7.4-10.4); Platelet Count 285 thou/uL (130-400); RBC Distribution Width 13.6 % (11.5-14.5); Red Blood Cell (RBC) Count 2.83 mill/uL (4.70-6.10); White Blood Cell (WBC) Count 15.7 thou/uL (4.8-10.8)
[2020-10-21 09:39] LABS: ALT (SGPT) Less than 7 U/L (8-55); AST (SGOT) 14 U/L (5-34); Albumin 3.6 g/dL (3.5-5.0); Alkaline Phosphatase 59 U/L (40-110); Anion Gap 17 mmol/L (10-20); BUN (Urea Nitrogen) 35 mg/dL (8.4-25.7); Bilirubin, Total 0.2 mg/dL (0.2-1.2); Calc. Creatinine Clearance 22 mL/min (70-130); Calcium 8.9 mg/dL (7.8-10.44); Carbon Dioxide 24 mmol/L (22-29); Chloride 98 mmol/L (98-107); Globulin 3.8 g/dL (2.4-3.5); Glucose 89 mg/dL (70-105); Protein, Total 7.4 g/dL (6.0-8.3); Sodium 135 mmol/L (136-145)
--- NOTE | 2020-10-21 10:36 | PDOC.HOSPP ---
- Subjective Encounter Date: 10/21/20 Encounter Time: 07:20 Subjective: Patient seen and examined. No new complaints. No overnight events - Objective Vital Signs & Weight: Vital Signs (12 hours) Temp Pulse Resp BP Pulse Ox 10/21/20 07:13 97.8 F 91 18 158/88 H 95 10/21/20 04:17 97.8 F 94 18 154/84 H 95 10/21/20 00:14 98.0 F 94 18 144/77 H 95 Weight Weight 315 lb 0.649 oz I&O: 10/20/20 10/21/20 10/22/20 06:59 06:59 06:59 Intake Total 3750 1760 Balance 3750 1760 Result Diagrams: 10/21/20 08:59 10/21/20 08:59 Hospitalist ROS - Review of Systems ENT: denies: ear pain, ear discharge, nose pain, nose discharge, nose conge stion, mouth pain, mouth swelling, throat pain, throat swelling, other Respiratory: denies: cough, dry, shortness of breath, hemoptysis, SOB with excertion, pleuritic pain, sputum, wheezing, other Cardiovascular: denies: chest pain, palpitations, orthopnea, paroxysmal noc. dyspnea, edema, light headedness, other Gastrointestinal: denies: nausea, vomiting, abdominal pain, diarrhea, constipation, melena, hematochezia, other Genitourinary: denies: dysuria, frequency, incontinence, hematuria, retention, other Musculoskeletal: denies: neck pain, shoulder pain, arm pain, back pain, hand pain, leg pain, foot pain, other - Medication Medications: Active Medications Generic Name Dose Route Start Last Admin Trade Name Freq PRN Reason Stop Dose Admin Acetaminophen 1,000 mg 10/17/20 14:02 10/20/20 22:14 Acetaminophen 500 Mg Tab PO 1,000 mg Q6H PRN Administration Moderate to Severe Pain (6-10) Amlodipine Besylate 10 mg 10/15/20 09:00 10/20/20 09:11 Amlodipine 10 Mg Tab PO 10 mg DAILY JD Administration Atorvastatin Calcium 40 mg 10/15/20 09:00 10/20/20 09:10 Atorvastatin Calcium 40 Mg Tab PO 40 mg DAILY JD Administration Heparin Sodium (Porcine) 5,000 units 10/14/20 15:00 10/20/20 20:21 Heparin 5,000 Units/Ml Vial SC 5,000 units TID JD Administration Hydralazine HCl 10 mg 10/17/20 21:38 10/18/20 08:42 Hydralazine 20 Mg/Ml Vial SLOW IVP 10 mg Q4H PRN Administration SBP GREATER THAN 160 Metoclopramide HCl 10 mg 10/15/20 09:00 10/20/20 20:21 Metoclopramide Hcl 10 Mg Tab PO 10 mg TID JD Administration Phenytoin Sodium 300 mg 10/15/20 21:00 10/20/20 20:21 Phenytoin Sodium Extended 100 Mg Cap PO 300 mg HS JD Administration Ranolazine 500 mg 10/15/20 09:00 10/20/20 20:21 Ranolazine 500 Mg Tab PO 500 mg BID JD Administration Sodium Chloride 10 ml 10/14/20 17:34 10/15/20 06:26 Flush - Normal Saline 10 Ml Syringe IVF 10 ml PRN PRN Administration Saline Flush Hospitalist Exam Vitals: Vital Signs (12 hours) Temp Pulse Resp BP Pulse Ox 10/21/20 07:13 97.8 F 91 18 158/88 H 95 10/21/20 04:17 97.8 F 94 18 154/84 H 95 10/21/20 00:14 98.0 F 94 18 144/77 H 95 Weight Weight 315 lb 0.649 oz General Appearance: NAD, awake alert Eye: PERRL, anicteric sclera ENT: normocephalic atraumatic, no oropharyngeal lesions Neck: supple, symmetric, no JVD Neck - other findings: Left IJ central line noted Heart: RRR, no murmur, no gallops, no rubs Heart - other findings: Hemodialysis tunneled catheter in place Respiratory: no wheezes, no rales, no ronchi Gastrointestinal: soft, non-tender, non-distended, normal bowel sounds Gastrointestinal - other findings: Obesity noted Extremities: no clubbing, no edema Skin: normal turgor, no lesions Neurological: no focal deficits Musculoskeletal: normal tone, normal strength Psychiatric: normal affect, normal behavior Hosp A/P (1) Anasarca associated with disorder of kidney Code(s): N04.9 - NEPHROTIC SYNDROME WITH UNSPECIFIED MORPHOLOGIC CHANGES Status: Acute (2) ESRD (end stage renal disease) on dialysis Code(s): N18.6 - END STAGE RENAL DISEASE; Z99.2 - DEPENDENCE ON RENAL DIALYSIS Status: Acute (3) HTN (hypertension) Code(s): I10 - ESSENTIAL (PRIMARY) HYPERTENSION Status: Acute Qualifiers: Hypertension type: essential hypertension Qualified Code(s): I10 - Essential (primary) hypertension (4) Renal mass Code(s): N28.89 - OTHER SPECIFIED DISORDERS OF KIDNEY AND URETER Status: Acute (5) Dyslipidemia Code(s): E78.5 - HYPERLIPIDEMIA, UNSPECIFIED Status: Chronic (6) Seizure Code(s): R56.9 - UNSPECIFIED CONVULSIONS Status: Chronic - Plan old records reviewed/req CT abdomen pelvis on admission showed suspected finding of renal mass on right kidney, will obtain renal ultrasound and patient will get outpatient evaluation with urology Discussed with the nephrology, medically stable for discharge once outpatient dialysis arrangement completed Medication reviewed and continue provide symptomatic and supportive care
--- NOTE | 2020-10-21 10:57 | PRG ---
DATE OF SERVICE: SUBJECTIVE: A 60-year-old gentleman, being seen for end-stage renal disease. The patient denies nausea or chest pain. OBJECTIVE: GENERAL: The patient is awake and alert. VITAL SIGNS: Afebrile, pulse 91, breathing at 16, blood pressure 140/77. HEENT: Head normocephalic and atraumatic. Eyes intact, no ulcers. Nose intact, no ulcers. Ears intact, no ulcers. NECK: Supple. No JVD. CHEST: Symmetrical and clear. CARDIOVASCULAR: Shows S1 and S2, no rub, no murmur. GASTROINTESTINAL: Abdomen is soft, bowel sounds positive. EXTREMITIES: Show no edema or ulcers. SKIN: Shows no rash or petechiae. MUSCULOSKELETAL: Shows no joint swelling or stiffness. GENITOURINARY: Shows no Ba or CVA tenderness. NEUROLOGIC: Motor intact. Cranial nerves intact. LABORATORY DATA: Hemoglobin 8.8. ASSESSMENT: 1. Stage 6 chronic kidney disease, stable. 2. Hypertensive, stable. 3. Anemia, stable. Medication based on GFR appropriate. Job ID: [id number]
[2020-10-21] MEDS: Metoclopramide HCl 10 MG TAB PO SCH ×3 (11:24→19:58)
[2020-10-21] MEDS: Heparin 5,000 UNITS/ML VIAL SC SCH ×3 (11:24→19:58)
[2020-10-21] MEDS ORDERED: Heparin 10,000 UNITS/ 10 ML VIAL ONE (12:02)
--- NOTE | 2020-10-21 12:02 | PDOC.DS.DS ---
Provider Date of Admission: 10/14/20 13:34 Admitting Provider: Yvan Hurtado MD Consultations: General Surgery, Nephrology Primary Care Physician: Liam Tariq MD Course Hospital Course: Patient was admitted on October 14, 2020, patient was admitted for anasarca secondary to renal failure, On admission patient had CT chest abdomen and pelvis which showed trace bilateral pleural fluid and trace pericardial fluid and a suspected right renal mass, on admission chest x-ray showed cardiomegaly and pulmonary vascular con gestion with volume overload, After admission this patient was evaluated by nephrology, his renal function approach to ESRD, during this admission decision was made to initiate dialysis, Echocardiography was also obtained which showed normal EF with diastolic dysfunction, general surgery was consulted for dialysis access, patient underwent left in internal jugular triple-lumen catheter, right internal jugular cuffed tunneled hemodialysis catheter and right wrist Clemencia fistula, After that patient was getting maintenance dialysis as per nephrology, patient was waiting for outpatient dialysis arrangement, Before discharge we did renal ultrasound, once outpatient dialysis arrangement completed then patient will be discharged home on above-mentioned medication. Patient seen and examined bedside today, by the time of discharge patient became euvolemic, his volume status significantly improved. Patient waited in hospital a little bit longer because of outpatient hemodialysis arrangement. Patient was seen and examined bedside today, patient is medically stable for discharge today. Resuscitation Status: 10/14/20 13:46 Resuscitation Status Routine Co-Sign Provider: Resuscitation Status: FULL: Full Resuscitation Lab Results: 10/21/20 08:59 10/21/20 08:59 Abnormal Lab Results - Last 48 hrs 10/21/20 08:59: Sodium 135 L, BUN 35 H, Creatinine 7.24 H, ALT Less than 7 L, Globulin 3.8 H, Albumin/Globulin Ratio 0.9 L 10/21/20 08:59: WBC 15.7 H, RBC 2.83 L, Hgb 8.8 L, Hct 28.1 L, MCV 99.2 H, MCHC 31.1 L, Lymphocytes % 11.8 L, Monocytes % 13.0 H, Neutrophils # 10.4 H, Monocytes # 2.0 H, Eosinophils # 1.3 H Microbiology - Entire Visit 10/14/20 16:16 Dialysis - Right Common Femoral Vein Blood Culture - Final NO GROWTH IN 5 DAYS 10/14/20 16:20 Venous blood - Left Hand Blood Culture - Final NO GROWTH IN 5 DAYS Vitals: Vital Signs (12 hours) Temp Pulse Resp BP Pulse Ox 10/21/20 07:13 97.8 F 91 18 158/88 H 95 10/21/20 04:17 97.8 F 94 18 154/84 H 95 10/21/20 00:14 98.0 F 94 18 144/77 H 95 Weight Weight 315 lb 0.649 oz Physical Exam: The patient was seen and examined on the day of discharge. General Appearance: NAD, awake alert Eye: PERRL, anicteric sclera ENT: normocephalic atraumatic, no oropharyngeal lesions Neck: supple, symmetric, no JVD, no thyromegaly Respiratory: no wheezes, no rales, no ronchi Cardiovascular: RRR, no murmur, no gallops, no rubs Gastrointestinal: soft, non-tender, non-distended, normal bowel sounds Extremities: no cyanosis, no clubbing, no edema Skin: normal turgor, no lesions Neurological: no focal deficits Musculoskeletal: normal tone, normal strength PSYCH: normal affect, normal behavior, A&O x 3 Problem (1) Anasarca associated with disorder of kidney Code(s): N04.9 - NEPHROTIC SYNDROME WITH UNSPECIFIED MORPHOLOGIC CHANGES Status: Resolved (2) ESRD (end stage renal disease) on dialysis Code(s): N18.6 - END STAGE RENAL DISEASE; Z99.2 - DEPENDENCE ON RENAL DIALYSIS Status: Acute (3) HTN (hypertension) Code(s): I10 - ESSENTIAL (PRIMARY) HYPERTENSION Status: Acute Qualifiers: Hypertension type: essential hypertension Qualified Code(s): I10 - Es sential (primary) hypertension (4) Renal mass Code(s): N28.89 - OTHER SPECIFIED DISORDERS OF KIDNEY AND URETER Status: Acute (5) Dyslipidemia Code(s): E78.5 - HYPERLIPIDEMIA, UNSPECIFIED Status: Chronic (6) Seizure Code(s): R56.9 - UNSPECIFIED CONVULSIONS Status: Chronic (7) Anemia of renal disease Code(s): N18.9 - CHRONIC KIDNEY DISEASE, UNSPECIFIED; D63.1 - ANEMIA IN CHRONIC KIDNEY DISEASE Status: Chronic (8) Secondary hyperparathyroidism (of renal origin) Code(s): N25.81 - SECONDARY HYPERPARATHYROIDISM OF RENAL ORIGIN Status: Chronic Plan Prescriptions: Folic Acid/Vit B Comp W-C [Nephro-Wilder Tablet] 1 tab PO DAILY #30 tab Sevelamer Carbonate [Renvela] 800 mg PO TID-WM #90 tab Home Medications: Medication Instructions Recorded Confirmed Type ALButerol Sulfate [Ventolin Neb] 1 vial NEB TID 10/15/20 10/15/20 History Albuterol Sulfate [Proair 2 puff IH Q6H PRN 10/15/20 10/15/20 History Digihaler] Amlodipine [Norvasc] 10 mg PO DAILY 10/15/20 10/15/20 History Atorvastatin Calcium 40 mg PO DAILY 10/15/20 10/15/20 History Metoclopramide HCl 1 tab PO TID 10/15/20 10/15/20 History Phenytoin Sodium Extended 3 cap PO HS 10/15/20 10/15/20 History [Dilantin] Ranolazine [Ranexa] 1 tab PO BID 10/15/20 10/15/20 History Torsemide 3 tab PO DAILY 10/15/20 10/15/20 History Folic Acid/Vit B Comp W-C 1 tab PO DAILY #30 tab 10/21/20 Rx [Nephro-Wilder Tablet] Sevelamer Carbonate [Renvela] 800 mg PO TID-WM #90 tab 10/21/20 Rx Allergies: No Known Allergies Allergy (Unverified 10/14/20 12:24) Activity:: Activity as Tolerated Nourishment:: Renal Diet Therapies:: Not Applicable Equipment/Supplies:: Not Applicable IV Therapy:: Not Applicable Referrals: Henry Owens MD [Active] - 3-4 Weeks Liam Tariq MD [Primary Care Provider] - Disposition: HOME Quality CORE MEASURES:: N/A
[2020-10-21] MEDS: Sevelamer Carbonate 800 MG TAB PO SCH ×2 (14:23→16:31)
[2020-10-21] MEDS: Atorvastatin Calcium 40 MG TAB PO SCH (14:30)
[2020-10-21] MEDS: Amlodipine 10 MG TAB PO SCH (14:30)
--- NOTE | 2020-10-21 15:58 | ULT ---
RENAL ULTRASOUND HISTORY: Complex cystic lesion of the right kidney COMPARISON: CT the chest, abdomen and pelvis dated October 14, 2020 FINDINGS: Right Kidney: Size: 11.4 x 6.3 x 5.8 cm Abnormality: The right kidney is diffusely echogenic suspicious for an underlying chronic medical farheen al disease. There are multiple cysts seen involving the right kidney. The right renal cortical thickness was 1.2 cm. Corresponding to the complex cystic lesion seen on the comparison CT evaluation is a complex cystic mass of the mid to lower pole the right kidney measuring 2.7 x 2.8 x 2.7 cm. Multiple prominent cysts are seen involving the right kidney. One of the largest is seen measuring 2. 1 cm within the right mid kidney. Left Kidney: Surgically absent Urinary bladder: 70.7 cc bladder volume. No abnormality. IMPRESSION: 1. Corresponding to the complex cystic mass, suspected to partially enhance on the prior CT, within t he anterior right mid to lower kidney is a complex cystic lesion with internal echogenicity but no definite dopplerable internal flow. The degree of internal septations and peripheral soft tissue type echogenicity is suspicious for a complex cystic neoplasm. If the patient's renal function can tolerate, follow-up CT of the abdomen with and without contrast utilizing renal mass protocol would b e recommended to confirm. 2. Multiple right renal cysts and increased echogenicity of the right kidney suspicious for underlyin g medical renal disease. 3. Postoperative change of a left nephrectomy.
[2020-10-21] MEDS: Acetaminophen 500 MG TAB PO PRN (18:48)
[2020-10-22] MEDS: Atorvastatin Calcium 40 MG TAB PO SCH (09:07)
[2020-10-22] MEDS: Amlodipine 10 MG TAB PO SCH (09:07)
[2020-10-22] MEDS: Sevelamer Carbonate 800 MG TAB PO SCH ×3 (09:07→16:51)
[2020-10-22] MEDS: Folic Acid/Vit B Comp W-C PO SCH (09:07)
[2020-10-22] MEDS: Heparin 5,000 UNITS/ML VIAL SC SCH ×3 (09:08→20:34)
[2020-10-22] MEDS: Metoclopramide HCl 10 MG TAB PO SCH ×3 (09:08→20:34)
--- NOTE | 2020-10-22 09:28 | PDOC.HOSPP ---
- Subjective Encounter Date: 10/22/20 Encounter Time: 07:10 Subjective: Patient seen and examined. No new complaints. No overnight events - Objective Vital Signs & Weight: Vital Signs (12 hours) Temp Pulse Resp BP Pulse Ox 10/22/20 09:07 97 10/22/20 07:53 98.2 F 97 14 160/84 H 96 10/22/20 03:42 98.1 F 98 16 159/91 H 95 10/22/20 00:31 98.0 F 90 16 156/85 H 95 Weight Weight 315 lb 0.649 oz I&O: 10/21/20 10/22/20 10/23/20 06:59 06:59 06:59 Intake Total 1760 960 480 Balance 1760 960 480 Result Diagrams: 10/21/20 08:59 10/21/20 08:59 Hospitalist ROS - Review of Systems ENT: denies: ear pain, ear discharge, nose pain, nose discharge, nose congestion, mouth pain, mouth swelling, throat pain, throat swelling, other Respiratory: denies: cough, dry, shortness of breath, hemoptysis, SOB with excertion, pleuritic pain, sputum, wheezing, other Cardiovascular: denies: chest pain, palpitations, orthopnea, paroxysmal noc. dyspnea, edema, light headedness, other Gastrointestinal: denies: nausea, vomiting, abdominal pain, diarrhea, constipation, melena, hematochezia, other Genitourinary: denies: dysuria, frequency, incontinence, hematuria, retention, other Musculoskeletal: denies: neck pain, shoulder pain, arm pain, back pain, hand pain, leg pain, foot pain, other - Medication Medications: Active Medications Generic Name Dose Route Start Last Admin Trade Name Freq PRN Reason Stop Dose Admin Acetaminophen 1,000 mg 10/17/20 14:02 10/21/20 18:48 Acetaminophen 500 Mg Tab PO 1,000 mg Q6H PRN Administration Moderate to Severe Pain (6-10) Amlodipine Besylate 10 mg 10/15/20 09:00 10/22/20 09:07 Amlodipine 10 Mg Tab PO 10 mg DAILY JD Administration Atorvastatin Calcium 40 mg 10/15/20 09:00 10/22/20 09:07 Atorvastatin Calcium 40 Mg Tab PO 40 mg DAILY JD Administration Epoetin Chester-epbx 10,000 unit 10/21/20 20:00 10/21/20 19:58 Epoetin [place]-Epbx (Esrd) 10,000 Unit/Ml Vial IVP 10,000 unit [id number] JD Administration Heparin Sodium (Porcine) 5,000 units 10/14/20 15:00 10/22/20 09:08 Heparin 5,000 Units/Ml Vial SC 5,000 units TID JD Administration Hydralazine HCl 10 mg 10/17/20 21:38 10/18/20 08:42 Hydralazine 20 Mg/Ml Vial SLOW IVP 10 mg Q4H PRN Administration SBP GREATER THAN 160 Metoclopramide HCl 10 mg 10/15/20 09:00 10/22/20 09:08 Metoclopramide Hcl 10 Mg Tab PO 10 mg TID JD Administration Phenytoin Sodium 300 mg 10/15/20 21:00 10/21/20 19:58 Phenytoin Sodium Extended 100 Mg Cap PO 300 mg HS JD Administration Ranolazine 500 mg 10/15/20 09:00 10/22/20 09:07 Ranolazine 500 Mg Tab PO 500 mg BID JD Administration Sevelamer Carbonate 800 mg 10/21/20 12:00 10/22/20 09:07 Sevelamer Carbonate 800 Mg Tab PO 800 mg TID-WM JD Administration Sodium Chloride 10 ml 10/14/20 17:34 10/15/20 06:26 Flush - Normal Saline 10 Ml Syringe IVF 10 ml PRN PRN Administration Saline Flush Vitamin B Complex/Vit C/Folic Acid 1 tab 10/22/20 09:00 10/22/20 09:07 Folic Acid/Vit B Comp W-C PO 1 tab DAILY JD Administration Hospitalist Exam Vitals: Vital Signs (12 hours) Temp Pulse Resp BP Pulse Ox 10/22/20 09:07 97 10/22/20 07:53 98.2 F 97 14 160/84 H 96 10/22/20 03:42 98.1 F 98 16 159/91 H 95 10/22/20 00:31 98.0 F 90 16 156/85 H 95 Weight Weight 315 lb 0.649 oz General Appearance: NAD, awake alert Eye: PERRL, anicteric sclera ENT: normocephalic atraumatic, no oropharyngeal lesions Neck: supple, symmetric, no JVD, no thyromegaly Heart: RRR, no murmur, no gallops, no rubs Respiratory: no wheezes, no rales, no ronchi Gastrointestinal: soft, non-tender, non-distended, normal bowel sounds Extremities: no cyanosis, no clubbing, no edema Skin: normal turgor, no lesions Neurological: no focal deficits Musculoskeletal: normal tone, normal strength Psychiatric: normal affect, normal behavior Hosp A/P (1) Anasarca associated with disorder of kidney Code(s): N04.9 - NEPHROTIC SYNDROME WITH UNSPECIFIED MORPHOLOGIC CHANGES Status: Acute (2) ESRD (end stage renal disease) on dialysis Code(s): N18.6 - END STAGE RENAL DISEASE; Z99.2 - DEPENDENCE ON RENAL DIALYSIS Status: Acute (3) HTN (hypertension) Code(s): I10 - ESSENTIAL (PRIMARY) HYPERTENSION Status: Acute Qualifiers: Hypertension type: essential hypertension Qualified Code(s): I10 - Essential (primary) hypertension (4) Renal mass Code(s): N28.89 - OTHER SPECIFIED DISORDERS OF KIDNEY AND URETER Status: Acute (5) Dyslipidemia Code(s): E78.5 - HYPERLIPIDEMIA, UNSPECIFIED Status: Chronic (6) Seizure Code(s): R56.9 - UNSPECIFIED CONVULSIONS Status: Chronic (7) Anemia of renal disease Code(s): N18.9 - CHRONIC KIDNEY DISEASE, UNSPECIFIED; D63.1 - ANEMIA IN CHRONIC KIDNEY DISEASE Status: Chronic (8) Secondary hyperparathyroidism (of renal origin) Code(s): N25.81 - SECONDARY HYPERPARATHYROIDISM OF RENAL ORIGIN Status: Chronic - Plan old records reviewed/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
--- NOTE | 2020-10-22 14:36 | PDOC.BPN ---
- Brief Progress Note Encounter Date: 10/22/20 Encounter Time: 14:33 Subjective: Patient is seen in the room. Patient's spouse was present in the room at the time of examination. No acute overnight events. Patient had hemodialysis yesterday. Review of systems Gen.: No fever, no chills All the 14 systems reviewed except for the ones mentioned above are negative Physical examination Vital Signs Temp 98.5 F 10/22/20 10:59 Pulse 104 H 10/22/20 10:59 Resp 14 10/22/20 10:59 BP 155/92 H 10/22/20 10:59 Pulse Ox 95 10/22/20 10:59 Intake & Output 10/21/20 10/22/20 10/22/20 18:59 06:59 18:59 Intake Total 960 480 Balance 960 480 Intake: Oral 960 480 Other: Voiding Method Toilet Toilet Toilet # Unmeasured Voids 1 1 # Bowel Movements 1 0 Constitutional: Obese male patient, sitting in chair comfortably HEENT: Mucous membranes moist, no icterus Neck: Trachea midline, no lymphadenopathy, right IJ RDC+ Heart: Regular rate and rhythm; no murmurs Lungs: Air entry equal bilateral; no wheezes Abdomen: Soft; non-tender; no guarding/tenderness/rebound Extremities: minimal pitting edema B/L Neurological: Patient is awake, following commands Skin: No rash, no ulcers Psychological: Not agitated Labs and Imaging reviewed Laboratory Last Values WBC 15.7 thou/uL (4.8-10.8) H 10/21/20 08:59 RBC 2.83 mill/uL (4.70-6.10) L 10/21/20 08:59 Hgb 8.8 g/dL (14.0-18.0) L 10/21/20 08:59 Hct 28.1 % (42.0-52.0) L 10/21/20 08:59 MCV 99.2 fL (78.0-98.0) H 10/21/20 08:59 MCH 30.9 pg (27.0-31.0) 10/21/20 08:59 MCHC 31.1 g/dL (32.0-36.0) L 10/21/20 08:59 RDW 13.6 % (11.5-14.5) 10/21/20 08:59 Plt Count 285 thou/uL (130-400) 10/21/20 08:59 MPV 8.3 fL (7.4-10.4) 10/21/20 08:59 Neutrophils % 66.5 % (42.0-75.0) 10/21/20 08:59 Neutrophils % (Manual) 67 % (42-75) 10/19/20 05:10 Band Neuts % (Manual) 2 % (5-11) L 10/19/20 05:10 Lymphocytes % 11.8 % (21.0-51.0) L 10/21/20 08:59 Lymphocytes % (Manual) 12 % (21-51) L 10/19/20 05:10 Reactive Lymphs % 1 % (0-10) 10/14/20 11:02 Monocytes % 13.0 % (0.0-10.0) H 10/21/20 08:59 Monocytes % (Manual) 14 % (0-10) H 10/19/20 05:10 Eosinophils % 8.0 % (0.0-10.0) 10/21/20 08:59 Eosinophils % (Manual) 2 % (0-10) 10/19/20 05:10 Basophils % 0.8 % (0.0-1.0) 10/21/20 08:59 Metamyelocytes % (Man) 2 % (0-0) H 10/19/20 05:10 Myelocytes % 1 % (0-0) H 10/19/20 05:10 Neutrophils # 10.4 thou/uL (1.40-6.50) H 10/21/20 08:59 Lymphocytes # 1.8 thou/uL (1.20-3.40) 10/21/20 08:59 Monocytes # 2.0 thou/uL (0.11-0.59) H 10/21/20 08:59 Eosinophils # 1.3 thou/uL (0.0-0.7) H 10/21/20 08:59 Basophils # 0.1 thou/uL (0.0-0.2) 10/21/20 08:59 Hypochromia SLIGHT = 6-15 cells (100X) (0-5/hpf) 10/18/20 05:25 Plt Morphology Comment Appears Adequate 10/19/20 05:10 PT 14.6 sec (12.0-14.7) 10/14/20 16:16 INR 1.1 10/14/20 16:16 APTT 27.7 sec (22.9-36.1) 10/14/20 16:16 D-Dimer 1.64 *mcg/mL (0.27-0.43) H 10/14/20 10:51 Sodium 135 mmol/L (136-145) L 10/21/20 08:59 Potassium 4.0 mmol/L (3.5-5.1) 10/21/20 08:59 Chloride 98 mmol/L (98-107) 10/21/20 08:59 Carbon Dioxide 24 mmol/L (22-29) 10/21/20 08:59 Anion Gap 17 mmol/L (10-20) 10/21/20 08:59 BUN 35 mg/dL (8.4-25.7) H 10/21/20 08:59 Creatinine 7.24 mg/dL (0.7-1.3) H 10/21/20 08:59 Estimated GFR (MDRD) 8 10/21/20 08:59 Glucose 89 mg/dL (70-105) 10/21/20 08:59 Lactic Acid 1.0 mmol/L (0.5-2.2) 10/14/20 14:04 Calcium 8.9 mg/dL (7.8-10.44) 10/21/20 08:59 Phosphorus 7.2 mg/dL (2.3-4.7) H 10/14/20 16:16 Magnesium 1.7 mg/dL (1.6-2.6) 10/14/20 16:16 Total Bilirubin 0.2 mg/dL (0.2-1.2) 10/21/20 08:59 AST 14 U/L (5-34) 10/21/20 08:59 ALT Less than 7 U/L (8-55) L 10/21/20 08:59 Alkaline Phosphatase 59 U/L (40-110) 10/21/20 08:59 Troponin I 0.026 ng/mL (< 0.028) 10/14/20 10:51 B-Natriuretic Peptide 170.7 pg/mL (0-100) H 10/14/20 10:51 Serum Total Protein 7.4 g/dL (6.0-8.3) 10/21/20 08:59 Albumin 3.6 g/dL (3.5-5.0) 10/21/20 08:59 Globulin 3.8 g/dL (2.4-3.5) H 10/21/20 08:59 Albumin/Globulin Ratio 0.9 g/dL (1.2-2.2) L 10/21/20 08:59 Urine Color Colorless (Yellow) 10/15/20 06:20 Urine Clarity Clear (Clear) 10/15/20 06:20 Urine pH 7.0 (5.0-9.0) 10/15/20 06:20 Ur Specific [place] 1.010 (1.002-1.036) 10/15/20 06:20 Urine Protein 200 mg/dL (Neg-Trace) A 10/15/20 06:20 Urine Glucose (UA) 30 mg/dL (Negative) 10/15/20 06:20 Urine Ketones Negative mg/dL (Negative) 10/15/20 06:20 Urine Blood 1+ (Negative) A 10/15/20 06:20 Urine Nitrite Negative (Negative) 10/15/20 06:20 Urine Bilirubin Negative (Negative) 10/15/20 06:20 Urine Urobilinogen Normal mg/dL (Less than 2) 10/15/20 06:20 Ur Leukocyte Esterase 25 Sang/uL (Negative) A 10/15/20 06:20 Urine RBC 0-3 HPF (0-3) 10/15/20 06:20 Urine WBC 4-6 HPF (0-3) A 10/15/20 06:20 Ur Squamous Epith Cells 0-3 HPF (0-3) 10/15/20 06:20 Urine Bacteria None Seen HPF (None Seen) 10/15/20 06:20 Salicylates Less than 8.0 mg/dL (15.0-30.0) L 10/14/20 16:16 Acetaminophen Less than 6.0 mcg/mL (10.0-30.0) L 10/14/20 16:16 Plasma Alcohol Less than 10 mg/dL (Less than 10) 10/14/20 16:16 Hep Bs Antigen Non-Reactive S/CO (NonReactive) 10/15/20 02:16 Hep Bs Antibody Non-Reactive (NonReactive) 10/15/20 02:16 Hep Bs Antibody Index Less than 8.00 mIU/mL 10/15/20 02:16 Hep B Core Total Ab Non-Reactive (NonReactive) 10/15/20 02:16 Hepatitis C Antibody Non-Reactive (NonReactive) 10/15/20 02:16 Influenza A RNA INAAT Not Detected (NotDetected) 10/14/20 13:32 Influenza B RNA INAAT Not Detected (NotDetected) 10/14/20 13:32 SARS-CoV-2 Rap RNA(RT-PCR) Not Detected (NotDetected) 10/14/20 13:32 Blood Type O POSITIVE 10/14/20 18:45 Antibody Screen NEGATIVE 10/14/20 17:42 Crossmatch See Detail 10/14/20 17:42 Active Medications Generic Name Dose Route Start Last Admin Trade Name Freq PRN Reason Stop Dose Admin Acetaminophen 1,000 mg 10/17/20 14:02 10/21/20 18:48 Acetaminophen 500 Mg Tab PO 1,000 mg Q6H PRN Administration Moderate to Severe Pain (6-10) Albuterol Sulfate 2 puff 10/15/20 07:45 Albuterol 200 Puff (6.7gm Inhaler) INH Q6H PRN SOB/WHEEZING Albuterol/Ipratropium 3 ml 10/14/20 14:49 Ipratropium/Albuterol Sulfate 3 Ml Neb NEB [id number] PRN Wheezing Amlodipine Besylate 10 mg 10/15/20 09:00 10/22/20 09:07 Amlodipine 10 Mg Tab PO 10 mg DAILY JD Administration Atorvastatin Calcium 40 mg 10/15/20 09:00 10/22/20 09:07 Atorvastatin Calcium 40 Mg Tab PO 40 mg DAILY JD Administration Bisacodyl 10 mg 10/21/20 07:43 Bisacodyl 5 Mg Tab PO DAILYPRN PRN Constipation Calcium Carbonate 1,000 mg 10/21/20 07:43 Calcium Carbonate 500 Mg Chewtab PO Q4H PRN Heartburn or Indigestion Epoetin [place]-epbx 10,000 unit 10/21/20 20:00 10/21/20 19:58 Epoetin [place]-Epbx (Esrd) 10,000 Unit/Ml Vial IVP 10,000 unit [id number] JD Administration Guaifenesin 200 mg 10/21/20 07:43 Guaifenesin Sf Soln 200 Mg/10 Ml Udcup PO Q4H PRN Cough Heparin Sodium (Porcine) 5,000 units 10/14/20 15:00 10/22/20 09:08 Heparin 5,000 Units/Ml Vial SC 5,000 units TID JD Administration Hydralazine HCl 10 mg 10/17/20 21:38 10/18/20 08:42 Hydralazine 20 Mg/Ml Vial SLOW IVP 10 mg Q4H PRN Administration SBP GREATER THAN 160 Cefazolin Sodium/Dextrose 2 gm 50 mls @ 100 mls/hr 10/14/20 12:30 / Device IVPB ONCALL-OR JD Loperamide HCl 2 mg 10/21/20 07:43 Loperamide Hcl 2 Mg Cap PO PRN PRN Diarrhea/Loose Stools Loratadine 10 mg 10/21/20 07:43 Loratadine 10 Mg Tab PO DAILYPRN PRN Sinus Symptoms Metoclopramide HCl 10 mg 10/15/20 09:00 10/22/20 09:08 Metoclopramide Hcl 10 Mg Tab PO 10 mg TID JD Administration Miscellaneous Medication 1 each 10/14/20 14:45 Pharmacy To Dose - Renally Adjust Abx IVPB PRN PRN Pharmacy to dose Phenytoin Sodium 300 mg 10/15/20 21:00 10/21/20 19:58 Phenytoin Sodium Extended 100 Mg Cap PO 300 mg HS JD Administration Ranolazine 500 mg 10/15/20 09:00 10/22/20 09:07 Ranolazine 500 Mg Tab PO 500 mg BID JD Administration Senna/Docusate Sodium 2 tab 10/21/20 07:43 Senokot S 8.6-50 Mg Tab PO BID PRN Constipation Sevelamer Carbonate 800 mg 10/21/20 12:00 10/22/20 12:50 Sevelamer Carbonate 800 Mg Tab PO 800 mg TID-WM JD Administration Sodium Chloride 10 ml 10/14/20 17:34 10/15/20 06:26 Flush - Normal Saline 10 Ml Syringe IVF 10 ml PRN PRN Administration Saline Flush Sodium Chloride 0 ml 10/21/20 07:43 Sodium Chloride 0.65% Nasal 44 Ml Bot EA NARE QIDPRN PRN Nasal Congestion Throat Lozenges 1 sheldon 10/21/20 07:43 Cepastat Lozenges 1 Sheldon PO Q2H PRN Sore Throat Tramadol HCl 50 mg 10/19/20 09:37 Tramadol Hcl 50 Mg Tab PO Q6H PRN Pain Vitamin B Complex/Vit C/Folic Acid 1 tab 10/22/20 09:00 10/22/20 09:07 Folic Acid/Vit B Comp W-C PO 1 tab DAILY JD Administration Zolpidem Tartrate 5 mg 10/21/20 07:43 Zolpidem Tartrate 5 Mg Tab PO HSPRN PRN Insomnia Assessment and plan CKD stage Hypertension Anemia Secondary hyperparathyroidism Renal mass Patient had hemodialysis yesterday. Anticipate dialysis on Saturday. He is awaiting for chair placement. Patient needs complete evaluation for renal mass as outpatient by Urology. D/w RN, pt and his spouse at the bed side.
[2020-10-23] MEDS: Heparin 5,000 UNITS/ML VIAL SC SCH ×3 (08:28→20:39)
[2020-10-23] MEDS: Metoclopramide HCl 10 MG TAB PO SCH ×3 (08:29→20:39)
[2020-10-23] MEDS: Atorvastatin Calcium 40 MG TAB PO SCH (08:29)
[2020-10-23] MEDS: Amlodipine 10 MG TAB PO SCH (08:29)
[2020-10-23] MEDS: Folic Acid/Vit B Comp W-C PO SCH (08:29)
[2020-10-23] MEDS: Sevelamer Carbonate 800 MG TAB PO SCH ×3 (08:29→18:00)
--- NOTE | 2020-10-23 09:18 | PDOC.HOSPP ---
- Subjective Encounter Date: 10/23/20 Encounter Time: 07:10 Subjective: Patient seen and examined. No new complaints. No overnight events - Objective Vital Signs & Weight: Vital Signs (12 hours) Temp Pulse Resp BP BP Pulse Ox 10/23/20 08:29 95 156/87 H 10/23/20 07:35 97.8 F 95 16 156/87 H 94 L 10/23/20 04:13 97.8 F 85 18 137/74 95 10/23/20 00:23 98.6 F 93 18 143/95 H 95 Weight Weight 315 lb 0.649 oz I&O: 10/22/20 10/23/20 10/24/20 06:59 06:59 06:59 Intake Total 960 480 500 Balance 960 480 500 Result Diagrams: 10/21/20 08:59 10/21/20 08:59 Hospitalist ROS - Review of Systems ENT: denies: ear pain, ear discharge, nose pain, nose discharge, nose congestion, mouth pain, mouth swelling, throat pain, throat swelling, other Respiratory: denies: cough, dry, shortness of breath, hemoptysis, SOB with excertion, pleuritic pain, sputum, wheezing, other Cardiovascular: denies: chest pain, palpitations, orthopnea, paroxysmal noc. dyspnea, edema, light headedness, other Gastrointestinal: denies: nausea, vomiting, abdominal pain, diarrhea, constipation, melena, hematochezia, other Genitourinary: denies: dysuria, frequency, incontinence, hematuria, retention, other Musculoskeletal: denies: neck pain, shoulder pain, arm pain, back pain, hand pain, leg pain, foot pain, other - Medication Medications: Active Medications Generic Name Dose Route Start Last Admin Trade Name Freq PRN Reason Stop Dose Admin Acetaminophen 1,000 mg 10/17/20 14:02 10/21/20 18:48 Acetaminophen 500 Mg Tab PO 1,000 mg Q6H PRN Administration Moderate to Severe Pain (6-10) Amlodipine Besylate 10 mg 10/15/20 09:00 10/23/20 08:29 Amlodipine 10 Mg Tab PO 10 mg DAILY JD Administration Atorvastatin Calcium 40 mg 10/15/20 09:00 10/23/20 08:29 Atorvastatin Calcium 40 Mg Tab PO 40 mg DAILY JD Administration Epoetin [place]-epbx 10,000 unit 10/21/20 20:00 10/21/20 19:58 Epoetin [place]-Epbx (Esrd) 10,000 Unit/Ml Vial IVP 10,000 unit [id number] JD Administration Heparin Sodium (Porcine) 5,000 units 10/14/20 15:00 10/23/20 08:28 Heparin 5,000 Units/Ml Vial SC 5,000 units TID JD Administration Hydralazine HCl 10 mg 10/17/20 21:38 10/18/20 08:42 Hydralazine 20 Mg/Ml Vial SLOW IVP 10 mg Q4H PRN Administration SBP GREATER THAN 160 Metoclopramide HCl 10 mg 10/15/20 09:00 10/23/20 08:29 Metoclopramide Hcl 10 Mg Tab PO 10 mg TID JD Administration Phenytoin Sodium 300 mg 10/15/20 21:00 10/22/20 20:34 Phenytoin Sodium Extended 100 Mg Cap PO 300 mg HS JD Administration Ranolazine 500 mg 10/15/20 09:00 10/23/20 08:29 Ranolazine 500 Mg Tab PO 500 mg BID JD Administration Sevelamer Carbonate 800 mg 10/21/20 12:00 10/23/20 08:29 Sevelamer Carbonate 800 Mg Tab PO 800 mg TID-WM JD Administration Sodium Chloride 10 ml 10/14/20 17:34 10/15/20 06:26 Flush - Normal Saline 10 Ml Syringe IVF 10 ml PRN PRN Administration Saline Flush Vitamin B Complex/Vit C/Folic Acid 1 tab 10/22/20 09:00 10/23/20 08:29 Folic Acid/Vit B Comp W-C PO 1 tab DAILY JD Administration Hospitalist Exam Vitals: Vital Signs (12 hours) Temp Pulse Resp BP BP Pulse Ox 10/23/20 08:29 95 156/87 H 10/23/20 07:35 97.8 F 95 16 156/87 H 94 L 10/23/20 04:13 97.8 F 85 18 137/74 95 10/23/20 00:23 98.6 F 93 18 143/95 H 95 Weight Weight 315 lb 0.649 oz General Appearance: NAD, awake alert Eye: PERRL, anicteric sclera ENT: normocephalic atraumatic, no oropharyngeal lesions Neck: supple, symmetric, no JVD, no thyromegaly Heart: RRR, no murmur, no gallops, no rubs Respiratory: no wheezes, no rales, no ronchi Gastrointestinal: soft, non-tender, non-distended, normal bowel sounds Extremities: no cyanosis, no clubbing, no edema Skin: normal turgor, no lesions Neurological: no focal deficits Musculoskeletal: normal tone, normal strength Psychiatric: normal affect, normal behavior Hosp A/P (1) Anasarca associated with disorder of kidney Code(s): N04.9 - NEPHROTIC SYNDROME WITH UNSPECIFIED MORPHOLOGIC CHANGES Status: Acute (2) ESRD (end stage renal disease) on dialysis Code(s): N18.6 - END STAGE RENAL DISEASE; Z99.2 - DEPENDENCE ON RENAL DIALYSIS Status: Acute (3) HTN (hypertension) Code(s): I10 - ESSENTIAL (PRIMARY) HYPERTENSION Status: Acute Qualifiers: Hypertension type: essential hypertension Qualified Code(s): I10 - Essential (primary) hypertension (4) Renal mass Code(s): N28.89 - OTHER SPECIFIED DISORDERS OF KIDNEY AND URETER Status: Acute (5) Dyslipidemia Code(s): E78.5 - HYPERLIPIDEMIA, UNSPECIFIED Status: Chronic (6) Seizure Code(s): R56.9 - UNSPECIFIED CONVULSIONS Status: Chronic (7) Anemia of renal disease Code(s): N18.9 - CHRONIC KIDNEY DISEASE, UNSPECIFIED; D63.1 - ANEMIA IN CHRONIC KIDNEY DISEASE Status: Chronic (8) Secondary hyperparathyroidism (of renal origin) Code(s): N25.81 - SECONDARY HYPERPARATHYROIDISM OF RENAL ORIGIN Status: Chronic - Plan old records reviewed/req Patient is medically stable, he will follow up with the nephrology and urology after discharge Care delay because of arrangement for outpatient dialysis Medication reviewed and continue to provide symptomatic and supportive care Patient is medically stable for discharge anytime,
--- NOTE | 2020-10-23 13:23 | PDOC.BPN ---
- Brief Progress Note Encounter Date: 10/23/20 Encounter Time: 13:23 Subjective: Patient is seen and examined in the room. Currently eating his meals. Review of systems Gen.: No fever, no chills All the 14 systems reviewed except for the ones mentioned above are negative Physical examination Vital Signs Temp 98.2 F 10/23/20 15:59 Pulse 91 10/23/20 15:59 Resp 20 10/23/20 15:59 BP 146/84 H 10/23/20 15:59 Pulse Ox 96 10/23/20 15:59 Intake & Output 10/22/20 10/23/20 10/23/20 18:59 06:59 18:59 Intake Total 480 500 Balance 480 500 Intake: Oral 480 500 Other: Voiding Method Toilet Toilet Toilet # Unmeasured Voids 1 2 # Bowel Movements 0 Constitutional: Obese +, patient does not have pain or discomfort HEENT: Mucous membranes moist, no icterus Neck: Trachea midline, no lymphadenopathy, right IJ RDC+ Heart: Regular rate and rhythm; no murmurs Lungs: Air entry equal bilateral; no wheezes Abdomen: Soft; non-tender; no guarding/tenderness/rebound Extremities: minimal pitting edema B/L Neurological: Patient is awake, following commands Skin: No rash, no ulcers Psychological: Not agitated Labs and Imaging reviewed Laboratory Last Values WBC 15.7 thou/uL (4.8-10.8) H 10/21/20 08:59 RBC 2.83 mill/uL (4.70-6.10) L 10/21/20 08:59 Hgb 8.8 g/dL (14.0-18.0) L 10/21/20 08:59 Hct 28.1 % (42.0-52.0) L 10/21/20 08:59 MCV 99.2 fL (78.0-98.0) H 10/21/20 08:59 MCH 30.9 pg (27.0-31.0) 10/21/20 08:59 MCHC 31.1 g/dL (32.0-36.0) L 10/21/20 08:59 RDW 13.6 % (11.5-14.5) 10/21/20 08:59 Plt Count 285 thou/uL (130-400) 10/21/20 08:59 MPV 8.3 fL (7.4-10.4) 10/21/20 08:59 Neutrophils % 66.5 % (42.0-75.0) 10/21/20 08:59 Neutrophils % (Manual) 67 % (42-75) 10/19/20 05:10 Band Neuts % (Manual) 2 % (5-11) L 10/19/20 05:10 Lymphocytes % 11.8 % (21.0-51.0) L 10/21/20 08:59 Lymphocytes % (Manual) 12 % (21-51) L 10/19/20 05:10 Reactive Lymphs % 1 % (0-10) 10/14/20 11:02 Monocytes % 13.0 % (0.0-10.0) H 10/21/20 08:59 Monocytes % (Manual) 14 % (0-10) H 10/19/20 05:10 Eosinophils % 8.0 % (0.0-10.0) 10/21/20 08:59 Eosinophils % (Manual) 2 % (0-10) 10/19/20 05:10 Basophils % 0.8 % (0.0-1.0) 10/21/20 08:59 Metamyelocytes % (Man) 2 % (0-0) H 10/19/20 05:10 Myelocytes % 1 % (0-0) H 10/19/20 05:10 Neutrophils # 10.4 thou/uL (1.40-6.50) H 10/21/20 08:59 Lymphocytes # 1.8 thou/uL (1.20-3.40) 10/21/20 08:59 Monocytes # 2.0 thou/uL (0.11-0.59) H 10/21/20 08:59 Eosinophils # 1.3 thou/uL (0.0-0.7) H 10/21/20 08:59 Basophils # 0.1 thou/uL (0.0-0.2) 10/21/20 08:59 Hypochromia SLIGHT = 6-15 cells (100X) (0-5/hpf) 10/18/20 05:25 Plt Morphology Comment Appears Adequate 10/19/20 05:10 PT 14.6 sec (12.0-14.7) 10/14/20 16:16 INR 1.1 10/14/20 16:16 APTT 27.7 sec (22.9-36.1) 10/14/20 16:16 D-Dimer 1.64 *mcg/mL (0.27-0.43) H 10/14/20 10:51 Sodium 135 mmol/L (136-145) L 10/21/20 08:59 Potassium 4.0 mmol/L (3.5-5.1) 10/21/20 08:59 Chloride 98 mmol/L (98-107) 10/21/20 08:59 Carbon Dioxide 24 mmol/L (22-29) 10/21/20 08:59 Anion Gap 17 mmol/L (10-20) 10/21/20 08:59 BUN 35 mg/dL (8.4-25.7) H 10/21/20 08:59 Creatinine 7.24 mg/dL (0.7-1.3) H 10/21/20 08:59 Estimated GFR (MDRD) 8 10/21/20 08:59 Glucose 89 mg/dL (70-105) 10/21/20 08:59 Lactic Acid 1.0 mmol/L (0.5-2.2) 10/14/20 14:04 Calcium 8.9 mg/dL (7.8-10.44) 10/21/20 08:59 Phosphorus 7.2 mg/dL (2.3-4.7) H 10/14/20 16:16 Magnesium 1.7 mg/dL (1.6-2.6) 10/14/20 16:16 Total Bilirubin 0.2 mg/dL (0.2-1.2) 10/21/20 08:59 AST 14 U/L (5-34) 10/21/20 08:59 ALT Less than 7 U/L (8-55) L 10/21/20 08:59 Alkaline Phosphatase 59 U/L (40-110) 10/21/20 08:59 Troponin I 0.026 ng/mL (< 0.028) 10/14/20 10:51 B-Natriuretic Peptide 170.7 pg/mL (0-100) H 10/14/20 10:51 Serum Total Protein 7.4 g/dL (6.0-8.3) 10/21/20 08:59 Albumin 3.6 g/dL (3.5-5.0) 10/21/20 08:59 Globulin 3.8 g/dL (2.4-3.5) H 10/21/20 08:59 Albumin/Globulin Ratio 0.9 g/dL (1.2-2.2) L 10/21/20 08:59 Urine Color Colorless (Yellow) 10/15/20 06:20 Urine Clarity Clear (Clear) 10/15/20 06:20 Urine pH 7.0 (5.0-9.0) 10/15/20 06:20 Ur Specific Ceres 1.010 (1.002-1.036) 10/15/20 06:20 Urine Protein 200 mg/dL (Neg-Trace) A 10/15/20 06:20 Urine Glucose (UA) 30 mg/dL (Negative) 10/15/20 06:20 Urine Ketones Negative mg/dL (Negative) 10/15/20 06:20 Urine Blood 1+ (Negative) A 10/15/20 06:20 Urine Nitrite Negative (Negative) 10/15/20 06:20 Urine Bilirubin Negative (Negative) 10/15/20 06:20 Urine Urobilinogen Normal mg/dL (Less than 2) 10/15/20 06:20 Ur Leukocyte Esterase 25 Sang/uL (Negative) A 10/15/20 06:20 Urine RBC 0-3 HPF (0-3) 10/15/20 06:20 Urine WBC 4-6 HPF (0-3) A 10/15/20 06:20 Ur Squamous Epith Cells 0-3 HPF (0-3) 10/15/20 06:20 Urine Bacteria None Seen HPF (None Seen) 10/15/20 06:20 Salicylates Less than 8.0 mg/dL (15.0-30.0) L 10/14/20 16:16 Acetaminophen Less than 6.0 mcg/mL (10.0-30.0) L 10/14/20 16:16 Plasma Alcohol Less than 10 mg/dL (Less than 10) 10/14/20 16:16 Hep Bs Antigen Non-Reactive S/CO (NonReactive) 10/15/20 02:16 Hep Bs Antibody Non-Reactive (NonReactive) 10/15/20 02:16 Hep Bs Antibody Index Less than 8.00 mIU/mL 10/15/20 02:16 Hep B Core Total Ab Non-Reactive (NonReactive) 10/15/20 02:16 Hepatitis C Antibody Non-Reactive (NonReactive) 10/15/20 02:16 Influenza A RNA INAAT Not Detected (NotDetected) 10/14/20 13:32 Influenza B RNA INAAT Not Detected (NotDetected) 10/14/20 13:32 SARS-CoV-2 Rap RNA(RT-PCR) Not Detected (NotDetected) 10/14/20 13:32 Blood Type O POSITIVE 10/14/20 18:45 Antibody Screen NEGATIVE 10/14/20 17:42 Crossmatch See Detail 10/14/20 17:42 Active Medications Generic Name Dose Route Start Last Admin Trade Name Freq PRN Reason Stop Dose Admin Acetaminophen 1,000 mg 10/17/20 14:02 10/21/20 18:48 Acetaminophen 500 Mg Tab PO 1,000 mg Q6H PRN Administration Moderate to Severe Pain (6-10) Albuterol Sulfate 2 puff 10/15/20 07:45 Albuterol 200 Puff (6.7gm Inhaler) INH Q6H PRN SOB/WHEEZING Albuterol/Ipratropium 3 ml 10/14/20 14:49 Ipratropium/Albuterol Sulfate 3 Ml Neb NEB [id number] PRN Wheezing Amlodipine Besylate 10 mg 10/15/20 09:00 10/23/20 08:29 Amlodipine 10 Mg Tab PO 10 mg DAILY JD Administration Atorvastatin Calcium 40 mg 10/15/20 09:00 10/23/20 08:29 Atorvastatin Calcium 40 Mg Tab PO 40 mg DAILY JD Administration Bisacodyl 10 mg 10/21/20 07:43 Bisacodyl 5 Mg Tab PO DAILYPRN PRN Constipation Calcium Carbonate 1,000 mg 10/21/20 07:43 Calcium Carbonate 500 Mg Chewtab PO Q4H PRN Heartburn or Indigestion Epoetin Chester-epbx 10,000 unit 10/21/20 20:00 10/21/20 19:58 Epoetin Chester-Epbx (Esrd) 10,000 Unit/Ml Vial IVP 10,000 unit [id number] JD Administration Guaifenesin 200 mg 10/21/20 07:43 Guaifenesin Sf Soln 200 Mg/10 Ml Udcup PO Q4H PRN Cough Heparin Sodium (Porcine) 5,000 units 10/14/20 15:00 10/23/20 14:57 Heparin 5,000 Units/Ml Vial SC 5,000 units TID JD Administration Hydralazine HCl 10 mg 10/17/20 21:38 10/18/20 08:42 Hydralazine 20 Mg/Ml Vial SLOW IVP 10 mg Q4H PRN Administration SBP GREATER THAN 160 Cefazolin Sodium/Dextrose 2 gm 50 mls @ 100 mls/hr 10/14/20 12:30 / Device IVPB ONCALL-OR JD Loperamide HCl 2 mg 10/21/20 07:43 Loperamide Hcl 2 Mg Cap PO PRN PRN Diarrhea/Loose Stools Loratadine 10 mg 10/21/20 07:43 Loratadine 10 Mg Tab PO DAILYPRN PRN Sinus Symptoms Metoclopramide HCl 10 mg 10/15/20 09:00 10/23/20 14:58 Metoclopramide Hcl 10 Mg Tab PO 10 mg TID JD Administration Miscellaneous Medication 1 each 10/14/20 14:45 Pharmacy To Dose - Renally Adjust Abx IVPB PRN PRN Pharmacy to dose Phenytoin Sodium 300 mg 10/15/20 21:00 10/22/20 20:34 Phenytoin Sodium Extended 100 Mg Cap PO 300 mg HS JD Administration Ranolazine 500 mg 10/15/20 09:00 10/23/20 08:29 Ranolazine 500 Mg Tab PO 500 mg BID JD Administration Senna/Docusate Sodium 2 tab 10/21/20 07:43 Senokot S 8.6-50 Mg Tab PO BID PRN Constipation Sevelamer Carbonate 800 mg 10/21/20 12:00 10/23/20 12:26 Sevelamer Carbonate 800 Mg Tab PO 800 mg TID-WM JD Administration Sodium Chloride 10 ml 10/14/20 17:34 10/15/20 06:26 Flush - Normal Saline 10 Ml Syringe IVF 10 ml PRN PRN Administration Saline Flush Sodium Chloride 0 ml 10/21/20 07:43 Sodium Chloride 0.65% Nasal 44 Ml Bot EA NARE QIDPRN PRN Nasal Congestion Throat Lozenges 1 sheldon 10/21/20 07:43 Cepastat Lozenges 1 Sheldon PO Q2H PRN Sore Throat Tramadol HCl 50 mg 10/19/20 09:37 Tramadol Hcl 50 Mg Tab PO Q6H PRN Pain Vitamin B Complex/Vit C/Folic Acid 1 tab 10/22/20 09:00 10/23/20 08:29 Folic Acid/Vit B Comp W-C PO 1 tab DAILY JD Administration Zolpidem Tartrate 5 mg 10/21/20 07:43 Zolpidem Tartrate 5 Mg Tab PO HSPRN PRN Insomnia Assessment and plan CKD stage Hypertension Anemia Secondary hyperparathyroidism Renal mass Plan for dialysis in a.m. Patient is awaiting dialysis chair placement. Patient needs complete evaluation of renal mass as outpatient by urology. D/w DEEPIKA
[2020-10-24] MEDS: Sevelamer Carbonate 800 MG TAB PO SCH ×3 (08:08→17:40)
[2020-10-24 08:27] LABS: Hemoglobin 8.6 g/dL (14.0-18.0); Mean Corpuscular HGB CONC 32.1 g/dL (32.0-36.0); Mean Corpuscular Hemoglobin 31.9 pg (27.0-31.0); Mean Corpuscular Volume 99.4 fL (78.0-98.0); Mean Platelet Volume 8.3 fL (7.4-10.4); Platelet Count 276 thou/uL (130-400); RBC Distribution Width 13.5 % (11.5-14.5); Red Blood Cell (RBC) Count 2.69 mill/uL (4.70-6.10); White Blood Cell (WBC) Count 15.3 thou/uL (4.8-10.8)
[2020-10-24 08:41] LABS: ALT (SGPT) 8 U/L (8-55); AST (SGOT) 14 U/L (5-34); Albumin 3.5 g/dL (3.5-5.0); Alkaline Phosphatase 62 U/L (40-110); Anion Gap 18 mmol/L (10-20); BUN (Urea Nitrogen) 49 mg/dL (8.4-25.7); Bilirubin, Total 0.2 mg/dL (0.2-1.2); Calc. Creatinine Clearance 18 mL/min (70-130); Calcium 8.9 mg/dL (7.8-10.44); Carbon Dioxide 26 mmol/L (22-29); Chloride 96 mmol/L (98-107); Globulin 3.9 g/dL (2.4-3.5); Glucose 116 mg/dL (70-105); Potassium 3.7 mmol/L (3.5-5.1); Protein, Total 7.4 g/dL (6.0-8.3); Sodium 136 mmol/L (136-145)
[2020-10-24 08:51] LABS: Band 4 % (5-11); Eosinophils 9 % (0-10); Lymphocytes 12 % (21-51); MDiff Complete? YES; Metamyelocyte 4 % (0-0); Monocytes 11 % (0-10); Myelocyte 2 % (0-0); Neutrophil 57 % (42-75); Platelet Morphology Comment Appears Adequate; Polychromasia MODERATE = 3-4 cells (100X) (0-2/hpf); Reactive Lymphocytes 1 % (0-10)
--- NOTE | 2020-10-24 10:30 | PDOC.HOSPP ---
- Subjective Encounter Date: 10/24/20 Encounter Time: 07:20 Subjective: Patient seen and examined. No new complaints. No overnight events, patient seen in dialysis room - Objective Vital Signs & Weight: Vital Signs (12 hours) Temp Pulse Resp BP BP Pulse Ox 10/24/20 07:59 97.6 F 91 14 155/81 H 96 10/24/20 05:32 97.8 F 95 18 151/77 H 95 10/23/20 23:32 97.8 F 96 20 156/85 H 95 Weight Weight 315 lb 0.649 oz I&O: 10/23/20 10/24/20 10/25/20 06:59 06:59 06:59 Intake Total 480 1850 Balance 480 1850 Result Diagrams: 10/24/20 08:00 10/24/20 08:00 Hospitalist ROS - Review of Systems ENT: denies: ear pain, ear discharge, nose pain, nose discharge, nose congestion, mouth pain, mouth swelling, throat pain, throat swelling, other Respiratory: denies: cough, dry, shortness of breath, hemoptysis, SOB with excertion, pleuritic pain, sputum, wheezing, other Cardiovascular: denies: chest pain, palpitations, orthopnea, paroxysmal noc. dyspnea, edema, light headedness, other Gastrointestinal: denies: nausea, vomiting, abdominal pain, diarrhea, consti pation, melena, hematochezia, other Genitourinary: denies: dysuria, frequency, incontinence, hematuria, retention, other Musculoskeletal: denies: neck pain, shoulder pain, arm pain, back pain, hand pain, leg pain, foot pain, other - Medication Medications: Active Medications Generic Name Dose Route Start Last Admin Trade Name Freq PRN Reason Stop Dose Admin Acetaminophen 1,000 mg 10/17/20 14:02 10/21/20 18:48 Acetaminophen 500 Mg Tab PO 1,000 mg Q6H PRN Administration Moderate to Severe Pain (6-10) Amlodipine Besylate 10 mg 10/15/20 09:00 10/23/20 08:29 Amlodipine 10 Mg Tab PO 10 mg DAILY JD Administration Atorvastatin Calcium 40 mg 10/15/20 09:00 10/23/20 08:29 Atorvastatin Calcium 40 Mg Tab PO 40 mg DAILY JD Administration Epoetin Chester-epbx 10,000 unit 10/21/20 20:00 10/21/20 19:58 Epoetin Chester-Epbx (Esrd) 10,000 Unit/Ml Vial IVP 10,000 unit [id number] JD Administration Heparin Sodium (Porcine) 5,000 units 10/14/20 15:00 10/23/20 20:39 Heparin 5,000 Units/Ml Vial SC 5,000 units TID JD Administration Hydralazine HCl 10 mg 10/17/20 21:38 10/18/20 08:42 Hydralazine 20 Mg/Ml Vial SLOW IVP 10 mg Q4H PRN Administration SBP GREATER THAN 160 Metoclopramide HCl 10 mg 10/15/20 09:00 10/23/20 20:39 Metoclopramide Hcl 10 Mg Tab PO 10 mg TID JD Administration Phenytoin Sodium 300 mg 10/15/20 21:00 10/23/20 20:39 Phenytoin Sodium Extended 100 Mg Cap PO 300 mg HS JD Administration Ranolazine 500 mg 10/15/20 09:00 10/23/20 20:39 Ranolazine 500 Mg Tab PO 500 mg BID JD Administration Sevelamer Carbonate 800 mg 10/21/20 12:00 10/24/20 08:08 Sevelamer Carbonate 800 Mg Tab PO 800 mg TID-WM JD Administration Sodium Chloride 10 ml 10/14/20 17:34 10/24/20 08:03 Flush - Normal Saline 10 Ml Syringe IVF 10 ml PRN PRN Administration Saline Flush Vitamin B Complex/Vit C/Folic Acid 1 tab 10/22/20 09:00 10/23/20 08:29 Folic Acid/Vit B Comp W-C PO 1 tab DAILY JD Administration Hospitalist Exam Vitals: Vital Signs (12 hours) Temp Pulse Resp BP BP Pulse Ox 10/24/20 07:59 97.6 F 91 14 155/81 H 96 10/24/20 05:32 97.8 F 95 18 151/77 H 95 10/23/20 23:32 97.8 F 96 20 156/85 H 95 Weight Weight 315 lb 0.649 oz General Appearance: NAD, awake alert Eye: PERRL, anicteric sclera ENT: normocephalic atraumatic, no oropharyngeal lesions Neck: supple, symmetric, no JVD, no thyromegaly Heart: RRR, no murmur, no gallops, no rubs Respiratory: no wheezes, no rales, no ronchi Gastrointestinal: soft, non-tender, non-distended, normal bowel sounds Extremities: no cyanosis, no clubbing, no edema Skin: normal turgor, no lesions Neurological: no focal deficits Musculoskeletal: normal tone, normal strength Psychiatric: normal affect, normal behavior Hosp A/P (1) Anasarca associated with disorder of kidney Code(s): N04.9 - NEPHROTIC SYNDROME WITH UNSPECIFIED MORPHOLOGIC CHANGES Stat us: Resolved (2) ESRD (end stage renal disease) on dialysis Code(s): N18.6 - END STAGE RENAL DISEASE; Z99.2 - DEPENDENCE ON RENAL DIALYSIS Status: Acute (3) HTN (hypertension) Code(s): I10 - ESSENTIAL (PRIMARY) HYPERTENSION Status: Acute Qualifiers: Hypertension type: essential hypertension Qualified Code(s): I10 - Essential (primary) hypertension (4) Renal mass Code(s): N28.89 - OTHER SPECIFIED DISORDERS OF KIDNEY AND URETER Status: Acute (5) Dyslipidemia Code(s): E78.5 - HYPERLIPIDEMIA, UNSPECIFIED Status: Chronic (6) Seizure Code(s): R56.9 - UNSPECIFIED CONVULSIONS Status: Chronic (7) Anemia of renal disease Code(s): N18.9 - CHRONIC KIDNEY DISEASE, UNSPECIFIED; D63.1 - ANEMIA IN CHRONIC KIDNEY DISEASE Status: Chronic (8) Secondary hyperparathyroidism (of renal origin) Code(s): N25.81 - SECONDARY HYPERPARATHYROIDISM OF RENAL ORIGIN Status: Chronic - Plan old records reviewed/req, aids social worker Patient is medically stable for discharge anytime once outpatient dialysis arrangement completed Patient will follow up with urology and nephrology after discharge Medication reviewed and continue to provide symptomatic and supportive care
[2020-10-24] MEDS ORDERED: Heparin 10,000 UNITS/ 10 ML VIAL ONE (12:03)
[2020-10-24] MEDS: Folic Acid/Vit B Comp W-C PO SCH (13:57)
[2020-10-24] MEDS: Metoclopramide HCl 10 MG TAB PO SCH ×4 (13:58→20:37)
[2020-10-24] MEDS: Amlodipine 10 MG TAB PO SCH (13:58)
[2020-10-24] MEDS: Atorvastatin Calcium 40 MG TAB PO SCH (13:58)
[2020-10-24] MEDS: Heparin 5,000 UNITS/ML VIAL SC SCH ×3 (14:00→20:34)
--- NOTE | 2020-10-24 16:04 | PRG ---
DATE OF SERVICE: 10/24/2020 SUBJECTIVE: Patient was seen and examined at bedside and overnight events noted. Patient denies any shortness of breath or chest pain or palpitation. No history of nausea or vomiting or diarrhea or fever or chills or cramps. OBJECTIVE: GENERAL: This is a well-built male, in no apparent distress. VITAL SIGNS: Temperature 97.6. Heart rate 91. Respiratory rate 18. Blood pressure 155/81. HEENT: Atraumatic, normocephalic. Oral mucosa is moist NECK: Supple. CARDIOVASCULAR: S1, S2 heard. Rate and rhythm regular. RESPIRATORY: Clear to auscultation. GASTROINTESTINAL: Abdomen is soft. MUSCULOSKELETAL: No tenderness. No edema. DERMATOLOGIC: No skin rash. NEUROLOGIC: Alert and awake and oriented X3. No focal neurologic deficits. Moving all the extremities. PSYCHIATRIC: Mood and affect normal. LABORATORY DATA: Potassium 3.7, BUN is 49, creatinine is 8.9. ASSESSMENT AND PLAN: 1. End-stage renal disease. Continue dialysis as tolerated. 2. Edema. 3. Anemia of chronic disease. 4. Hypertension. Plan to continue on dialysis as tolerated. Follow with Case Management for outpatient placement. Job ID: [id number]
[2020-10-24] MEDS: EPOETIN ALFA-EPBX (ESRD) 10,000 UNIT/ML VIAL SC SCH (20:34)
[2020-10-25] MEDS: Heparin 5,000 UNITS/ML VIAL SC SCH ×3 (08:33→20:09)
[2020-10-25] MEDS: Sevelamer Carbonate 800 MG TAB PO SCH ×3 (08:33→17:03)
[2020-10-25] MEDS: Folic Acid/Vit B Comp W-C PO SCH (08:33)
[2020-10-25] MEDS: Amlodipine 10 MG TAB PO SCH (08:33)
[2020-10-25] MEDS: Metoclopramide HCl 10 MG TAB PO SCH ×3 (08:34→20:09)
[2020-10-25] MEDS: Atorvastatin Calcium 40 MG TAB PO SCH (08:34)
--- NOTE | 2020-10-25 09:37 | PDOC.HOSPP ---
- Subjective Encounter Date: 10/25/20 Encounter Time: 09:36 Subjective: Patient seen and examined. No new complaints. No overnight events - Objective Vital Signs & Weight: Vital Signs (12 hours) Temp Pulse Resp BP BP BP Pulse Ox 10/25/20 08:33 92 10/25/20 08:05 98.2 F 92 16 158/82 H 96 10/25/20 05:00 98.0 F 92 18 148/87 H 96 10/24/20 23:20 98.2 F 97 18 137/80 95 Weight Weight 315 lb 0.649 oz I&O: 10/24/20 10/25/20 10/26/20 06:59 06:59 06:59 Intake Total 1850 950 Balance 1850 950 Result Diagrams: 10/24/20 08:00 10/24/20 08:00 Hospitalist ROS - Review of Systems ENT: denies: ear pain, ear discharge, nose pain, nose discharge, nose congestion, mouth pain, mouth swelling, throat pain, throat swelling, other Respiratory: denies: cough, dry, shortness of breath, hemoptysis, SOB with excertion, pleuritic pain, sputum, wheezing, other Cardiovascular: denies: chest pain, palpitations, orthopnea, paroxysmal noc. dyspnea, edema, light headedness, other Gastrointestinal: denies: nausea, vomiting, abdominal pain, diarrhea, const ipation, melena, hematochezia, other Genitourinary: denies: dysuria, frequency, incontinence, hematuria, retention, other Musculoskeletal: denies: neck pain, shoulder pain, arm pain, back pain, hand pain, leg pain, foot pain, other Skin: denies: rash, lesions, ronald, bruising, other - Medication Medications: Active Medications Generic Name Dose Route Start Last Admin Trade Name Freq PRN Reason Stop Dose Admin Acetaminophen 1,000 mg 10/17/20 14:02 10/21/20 18:48 Acetaminophen 500 Mg Tab PO 1,000 mg Q6H PRN Administration Moderate to Severe Pain (6-10) Amlodipine Besylate 10 mg 10/15/20 09:00 10/25/20 08:33 Amlodipine 10 Mg Tab PO 10 mg DAILY JD Administration Atorvastatin Calcium 40 mg 10/15/20 09:00 10/25/20 08:34 Atorvastatin Calcium 40 Mg Tab PO 40 mg DAILY JD Administration Epoetin Chester-epbx 10,000 unit 10/24/20 21:00 10/24/20 20:34 Epoetin Chester-Epbx (Esrd) 10,000 Unit/Ml Vial SC 10,000 unit MoWeFr JD Administration Heparin Sodium (Porcine) 5,000 units 10/14/20 15:00 10/25/20 08:33 Heparin 5,000 Units/Ml Vial SC 5,000 units TID JD Administration Hydralazine HCl 10 mg 10/17/20 21:38 10/18/20 08:42 Hydralazine 20 Mg/Ml Vial SLOW IVP 10 mg Q4H PRN Administration SBP GREATER THAN 160 Metoclopramide HCl 10 mg 10/15/20 09:00 10/25/20 08:34 Metoclopramide Hcl 10 Mg Tab PO 10 mg TID JD Administration Phenytoin Sodium 300 mg 10/15/20 21:00 10/24/20 20:35 Phenytoin Sodium Extended 100 Mg Cap PO 300 mg HS JD Administration Ranolazine 500 mg 10/15/20 09:00 10/25/20 08:34 Ranolazine 500 Mg Tab PO 500 mg BID JD Administration Sevelamer Carbonate 800 mg 10/21/20 12:00 10/25/20 08:33 Sevelamer Carbonate 800 Mg Tab PO 800 mg TID-WM JD Administration Sodium Chloride 10 ml 10/14/20 17:34 10/24/20 08:03 Flush - Normal Saline 10 Ml Syringe IVF 10 ml PRN PRN Administration Saline Flush Vitamin B Complex/Vit C/Folic Acid 1 tab 10/22/20 09:00 10/25/20 08:33 Folic Acid/Vit B Comp W-C PO 1 tab DAILY JD Administration Hospitalist Exam Vitals: Vital Signs (12 hours) Temp Pulse Resp BP BP BP Pulse Ox 10/25/20 08:33 92 10/25/20 08:05 98.2 F 92 16 158/82 H 96 10/25/20 05:00 98.0 F 92 18 148/87 H 96 10/24/20 23:20 98.2 F 97 18 137/80 95 Weight Weight 315 lb 0.649 oz General Appearance: NAD, awake alert Eye: PERRL, anicteric sclera ENT: normocephalic atraumatic, no oropharyngeal lesions Neck: supple, symmetric, no JVD, no thyromegaly Heart: RRR, no murmur, no gallops, no rubs Respiratory: no wheezes, no rales, no ronchi Gastrointestinal: soft, non-tender, non-distended, normal bowel sounds Extremities: no cyanosis, no clubbing, no edema Skin: normal turgor, no lesions Neurological: no focal deficits Musculoskeletal: normal tone, normal strength Psychiatric: normal affect, normal behavior Hosp A/P (1) Anasarca associated with disorder of kidney Code(s): N04.9 - NEPHROTIC SYNDROME WITH UNSPECIFIED MORPHOLOGIC CHANGES S tatus: Resolved (2) ESRD (end stage renal disease) on dialysis Code(s): N18.6 - END STAGE RENAL DISEASE; Z99.2 - DEPENDENCE ON RENAL DIALYSIS Status: Acute (3) HTN (hypertension) Code(s): I10 - ESSENTIAL (PRIMARY) HYPERTENSION Status: Acute Qualifiers: Hypertension type: essential hypertension Qualified Code(s): I10 - Essential (primary) hypertension (4) Renal mass Code(s): N28.89 - OTHER SPECIFIED DISORDERS OF KIDNEY AND URETER Status: Acute (5) Dyslipidemia Code(s): E78.5 - HYPERLIPIDEMIA, UNSPECIFIED Status: Chronic (6) Seizure Code(s): R56.9 - UNSPECIFIED CONVULSIONS Status: Chronic (7) Anemia of renal disease Code(s): N18.9 - CHRONIC KIDNEY DISEASE, UNSPECIFIED; D63.1 - ANEMIA IN CHRONIC KIDNEY DISEASE Status: Chronic (8) Secondary hyperparathyroidism (of renal origin) Code(s): N25.81 - SECONDARY HYPERPARATHYROIDISM OF RENAL ORIGIN Status: Chronic - Plan old records reviewed/req, administrator social welfare Discussed with the shoe caser about stability for discharge pending dialysis arrangement, See my discharge summary
--- NOTE | 2020-10-25 16:09 | PRG ---
DATE OF SERVICE: 10/25/2020 SUBJECTIVE: Patient was seen and examined at bedside and overnight events noted. Patient denies any shortness of breath or chest pain or palpitation. No history of nausea or vomiting or diarrhea or fever or chills or cramps. OBJECTIVE: GENERAL: This is a well-built male, in no apparent distress. VITAL SIGNS: Temperature 97.8. Heart rate 97. Respiratory rate 18. Blood pressure 138/70. HEENT: Atraumatic, normocephalic. Oral mucosa is moist. NECK: Supple. CARDIOVASCULAR: S1, S2 heard. Rate and rhythm regular. RESPIRATORY: Clear to auscultation. GASTROINTESTINAL: Abdomen is soft. MUSCULOSKELETAL: No tenderness. No edema. DERMATOLOGIC: No skin rash. NEUROLOGIC: Alert and awake and oriented x3. No focal neurologic deficits. Moving all the extremities. PSYCHIATRIC: Mood and affect normal. LABORATORY DATA: No labs from today. ASSESSMENT AND PLAN: 1. End-stage renal disease. Continue dialysis. Follow with Case Management for outpatient. 2. Edema. Remove fluid. 3. Hypertension. 4. Anemia of chronic disease. . Continue dialysis as tolerated. Job ID: [id number]
[2020-10-25] MEDS: Acetaminophen 500 MG TAB PO PRN (22:29)
[2020-10-26] MEDS: Heparin 5,000 UNITS/ML VIAL SC SCH ×3 (08:34→20:39)
[2020-10-26] MEDS: Atorvastatin Calcium 40 MG TAB PO SCH (08:34)
[2020-10-26] MEDS: Folic Acid/Vit B Comp W-C PO SCH (08:34)
[2020-10-26] MEDS: Amlodipine 10 MG TAB PO SCH (08:34)
[2020-10-26] MEDS: Sevelamer Carbonate 800 MG TAB PO SCH ×3 (08:34→15:48)
[2020-10-26] MEDS: Metoclopramide HCl 10 MG TAB PO SCH ×3 (08:34→20:38)
[2020-10-26] MEDS ORDERED: Heparin 10,000 UNITS/ 10 ML VIAL ONE (09:50)
--- NOTE | 2020-10-26 12:13 | PDOC.HOSPP ---
- Subjective Encounter Date: 10/26/20 Encounter Time: 08:00 Subjective: Patient seen for follow-up regarding end-stage renal disease. He denies any complaints. - Objective Vital Signs & Weight: Vital Signs (12 hours) Temp Pulse Resp BP Pulse Ox 10/26/20 08:34 97 10/26/20 08:00 97 10/26/20 07:48 97.9 F 97 16 162/87 H 97 Weight Admit Weight 315 lb Weight 315 lb 0.649 oz I&O: 10/25/20 10/26/20 10/27/20 06:59 06:59 06:59 Intake Total 950 1200 Balance 950 1200 Result Diagrams: 10/24/20 08:00 10/24/20 08:00 Additional Labs: Labs and MAR reviewed by sc Hospitalist ROS - Review of Systems Cardiovascular: denies: chest pain, palpitations, orthopnea, paroxysmal noc. dyspnea, edema, light headedness Gastrointestinal: denies: nausea, vomiting, abdominal pain, diarrhea, constipation, melena, hematochezia - Medication Medications: Active Medications Generic Name Dose Route Start Last Admin Trade Name Freq PRN Reason Stop Dose Admin Acetaminophen 1,000 mg 10/17/20 14:02 10/25/20 22:29 Acetaminophen 500 Mg Tab PO 1,000 mg Q6H PRN Administration Moderate to Severe Pain (6-10) Amlodipine Besylate 10 mg 10/15/20 09:00 10/26/20 08:34 Amlodipine 10 Mg Tab PO 10 mg DAILY JD Administration Atorvastatin Calcium 40 mg 10/15/20 09:00 10/26/20 08:34 Atorvastatin Calcium 40 Mg Tab PO 40 mg DAILY JD Administration Epoetin Chester-epbx 10,000 unit 10/24/20 21:00 10/24/20 20:34 Epoetin Chester-Epbx (Esrd) 10,000 Unit/Ml Vial SC 10,000 unit MoWeFr JD Administration Heparin Sodium (Porcine) 5,000 units 10/14/20 15:00 10/26/20 08:34 Heparin 5,000 Units/Ml Vial SC 5,000 units TID JD Administration Hydralazine HCl 10 mg 10/17/20 21:38 10/18/20 08:42 Hydralazine 20 Mg/Ml Vial SLOW IVP 10 mg Q4H PRN Administration SBP GREATER THAN 160 Metoclopramide HCl 10 mg 10/15/20 09:00 10/26/20 08:34 Metoclopramide Hcl 10 Mg Tab PO 10 mg TID JD Administration Phenytoin Sodium 300 mg 10/15/20 21:00 10/25/20 20:08 Phenytoin Sodium Extended 100 Mg Cap PO 300 mg HS JD Administration Ranolazine 500 mg 10/15/20 09:00 10/26/20 08:34 Ranolazine 500 Mg Tab PO 500 mg BID JD Administration Sevelamer Carbonate 800 mg 10/21/20 12:00 10/26/20 11:25 Sevelamer Carbonate 800 Mg Tab PO Not Given TID-WM JD Sodium Chloride 10 ml 10/14/20 17:34 10/24/20 08:03 Flush - Normal Saline 10 Ml Syringe IVF 10 ml PRN PRN Administration Saline Flush Vitamin B Complex/Vit C/Folic Acid 1 tab 10/22/20 09:00 10/26/20 08:34 Folic Acid/Vit B Comp W-C PO 1 tab DAILY JD Administration Hospitalist Exam Vitals: Vital Signs (12 hours) Temp Pulse Resp BP Pulse Ox 10/26/20 08:34 97 10/26/20 08:00 97 10/26/20 07:48 97.9 F 97 16 162/87 H 97 Weight Admit Weight 315 lb Weight 315 lb 0.649 oz General Appearance: awake alert Eye: anicteric sclera ENT: moist mucosa Neck: supple Heart: RRR Respiratory: CTAB Gastrointestinal: soft Extremities: no cyanosis Skin: normal turgor Psychiatric: normal affect, normal behavior Hosp A/P - Plan Hosp A/P (1) ESRD (end stage renal disease) on dialysis Code(s): N18.6 - END STAGE RENAL DISEASE; Z99.2 - DEPENDENCE ON RENAL DIALYSIS Status: Acute (2) Anasarca associated with disorder of kidney Code(s): N04.9 - NEPHROTIC SYNDROME WITH UNSPECIFIED MORPHOLOGIC CHANGES Status: Resolved (3) HTN (hypertension) Code(s): I10 - ESSENTIAL (PRIMARY) HYPERTENSION Status: Acute Qualifiers: Hypertension type: essential hypertension Qualified Code(s): I10 - Essential (primary) hypertension (4) Renal mass Code(s): N28.89 - OTHER SPECIFIED DISORDERS OF KIDNEY AND URETER Status: Acute (5) Dyslipidemia Code(s): E78.5 - HYPERLIPIDEMIA, UNSPECIFIED Status: Chronic (6) Seizure Code(s): R56.9 - UNSPECIFIED CONVULSIONS Status: Chronic (7) Anemia of renal disease Code(s): N18.9 - CHRONIC KIDNEY DISEASE, UNSPECIFIED; D63.1 - ANEMIA IN CHRONIC KIDNEY DISEASE Status: Chronic (8) Secondary hyperparathyroidism (of renal origin) Code(s): N25.81 - SECONDARY HYPERPARATHYROIDISM OF RENAL ORIGIN Status: Chronic - Plan Patient has been started on hemodialysis. Awaiting dialysis chair.
--- NOTE | 2020-10-26 15:21 | PRG ---
DATE OF SERVICE: 10/26/2020 SUBJECTIVE: Patient was seen and examined at bedside and overnight events noted. Patient denies any shortness of breath or chest pain or palpitation. No history of nausea or vomiting or diarrhea or fever or chills or cramps. OBJECTIVE: GENERAL: This is a well-built male, in no apparent distress. VITAL SIGNS: Temperature 97.9. Heart rate 97. Respiratory rate 16. Blood pressure 162/87. HEENT: Atraumatic, normocephalic. Oral mucosa is moist. NECK: Supple. CARDIOVASCULAR: S1, S2 heard. Rate and rhythm regular. RESPIRATORY: Clear to auscultation. GASTROINTESTINAL: Abdomen is soft. MUSCULOSKELETAL: No tenderness. No edema. DERMATOLOGIC: No skin rash. NEUROLOGIC: Alert and awake and oriented x3. No focal neurologic deficits. Moving all the extremities. PSYCHIATRIC: Mood and affect normal. LABORATORY DATA: Potassium 3.7, BUN is 49, and creatinine is 8.9. ASSESSMENT AND PLAN: 1. End-stage renal disease. Continue dialysis as tolerated. Follow with Case Management for outpatient placement. 2. Edema. 3. Hypertension. 4. Anemia of chronic disease. Continue dialysis as tolerated. Job ID: [id number]
[2020-10-26] MEDS: EPOETIN ALFA-EPBX (ESRD) 10,000 UNIT/ML VIAL SC SCH (22:11)
[2020-10-27] MEDS: Amlodipine 10 MG TAB PO SCH (09:11)
[2020-10-27] MEDS: Atorvastatin Calcium 40 MG TAB PO SCH (09:11)
[2020-10-27] MEDS: Folic Acid/Vit B Comp W-C PO SCH (09:11)
[2020-10-27] MEDS: Sevelamer Carbonate 800 MG TAB PO SCH ×3 (09:11→16:17)
[2020-10-27] MEDS: Metoclopramide HCl 10 MG TAB PO SCH ×3 (09:12→21:48)
[2020-10-27] MEDS: Heparin 5,000 UNITS/ML VIAL SC SCH ×3 (09:13→21:44)
--- NOTE | 2020-10-27 16:38 | PDOC.HOSPP ---
- Subjective Subjective: Patient was seen examined at bedside. Patient out of bed to chair. Waiting for outpatient dialysis chair approval. Discussed with high risk case manager. No acute events overnight. Patient tolerated dialysis, Saturday, Saturday, Saturday. - Objective Vital Signs & Weight: Vital Signs (12 hours) Temp Pulse Resp BP Pulse Ox 10/27/20 09:11 95 10/27/20 08:00 95 10/27/20 07:14 98.1 F 95 16 127/80 95 Weight Admit Weight 315 lb Weight 315 lb 0.649 oz I&O: 10/26/20 10/27/20 10/28/20 06:59 06:59 06:59 Intake Total 1200 960 Balance 1200 960 Result Diagrams: 10/24/20 08:00 10/24/20 08:00 Radiology Reviewed by me: Yes EKG Reviewed by me: Yes Hospitalist ROS - Medication Medications: Active Medications Generic Name Dose Route Start Last Admin Trade Name Freq PRN Reason Stop Dose Admin Acetaminophen 1,000 mg 10/17/20 14:02 10/25/20 22:29 Acetaminophen 500 Mg Tab PO 1,000 mg Q6H PRN Administration Moderate to Severe Pain (6-10) Amlodipine Besylate 10 mg 10/15/20 09:00 10/27/20 09:11 Amlodipine 10 Mg Tab PO 10 mg DAILY JD Administration Atorvastatin Calcium 40 mg 10/15/20 09:00 10/27/20 09:11 Atorvastatin Calcium 40 Mg Tab PO 40 mg DAILY JD Administration Epoetin Chester-epbx 10,000 unit 10/24/20 21:00 10/26/20 22:11 Epoetin Chester-Epbx (Esrd) 10,000 Unit/Ml Vial SC 10,000 unit MoWeFr JD Administration Heparin Sodium (Porcine) 5,000 units 10/14/20 15:00 10/27/20 16:18 Heparin 5,000 Units/Ml Vial SC 5,000 units TID JD Administration Hydralazine HCl 10 mg 10/17/20 21:38 10/18/20 08:42 Hydralazine 20 Mg/Ml Vial SLOW IVP 10 mg Q4H PRN Administration SBP GREATER THAN 160 Metoclopramide HCl 10 mg 10/15/20 09:00 10/27/20 16:18 Metoclopramide Hcl 10 Mg Tab PO 10 mg TID JD Administration Phenytoin Sodium 300 mg 10/15/20 21:00 10/26/20 20:38 Phenytoin Sodium Extended 100 Mg Cap PO 300 mg HS JD Administration Ranolazine 500 mg 10/15/20 09:00 10/27/20 09:11 Ranolazine 500 Mg Tab PO 500 mg BID JD Administration Sevelamer Carbonate 800 mg 10/21/20 12:00 10/27/20 16:17 Sevelamer Carbonate 800 Mg Tab PO 800 mg TID-WM JD Administration Sodium Chloride 10 ml 10/14/20 17:34 10/24/20 08:03 Flush - Normal Saline 10 Ml Syringe IVF 10 ml PRN PRN Administration Saline Flush Vitamin B Complex/Vit C/Folic Acid 1 tab 10/22/20 09:00 10/27/20 09:11 Folic Acid/Vit B Comp W-C PO 1 tab DAILY JD Administration Hospitalist Exam Vitals: Vital Signs (12 hours) Temp Pulse Resp BP Pulse Ox 10/27/20 09:11 95 10/27/20 08:00 95 10/27/20 07:14 98.1 F 95 16 127/80 95 Weight Admit Weight 315 lb Weight 315 lb 0.649 oz General Appearance: NAD Eye: PERRL ENT: normocephalic atraumatic Neck: supple Heart: RRR Respiratory: CTAB, no wheezes Gastrointestinal: soft, non-tender Extremities: no cyanosis Skin: normal turgor Neurological: cranial nerve grossly intact Musculoskeletal: normal tone Psychiatric: normal affect, normal behavior Hosp A/P (1) ESRD (end stage renal disease) on dialysis Code(s): N18.6 - END STAGE RENAL DISEASE; Z99.2 - DEPENDENCE ON RENAL DIALYSIS Status: Acute (2) HTN (hypertension) Code(s): I10 - ESSENTIAL (PRIMARY) HYPERTENSION Status: Acute Qualifiers: Hypertension type: essential hypertension Qualified Code(s): I10 - Essential (primary) hypertension (3) Renal mass Code(s): N28.89 - OTHER SPECIFIED DISORDERS OF KIDNEY AND URETER Status: Acute (4) Anemia of renal disease Code(s): N18.9 - CHRONIC KIDNEY DISEASE, UNSPECIFIED; D63.1 - ANEMIA IN CHRONIC KIDNEY DISEASE Status: Chronic (5) Dyslipidemia Code(s): E78.5 - HYPERLIPIDEMIA, UNSPECIFIED Status: Chronic (6) Seizure Code(s): R56.9 - UNSPECIFIED CONVULSIONS Status: Chronic (7) Anasarca associated with disorder of kidney Code(s): N04.9 - NEPHROTIC SYNDROME WITH UNSPECIFIED MORPHOLOGIC CHANGES Status: Resolved - Plan Patient is a pleasant 60 years old gentleman who has significant past medical histories of hypertension, dyslipidemia, asthma, ESRD not on dialysis, history of renal cancer with status post right nephrectomy, possible left nephrectomy, presented to the ED with worsening short of breath, and generalized anasarca. ESRD, now on dialysis -Continue dialysis as per nephrology, Saturday/Saturday/Saturday. -Pending outpatient dialysis chair approval Generalized anasarca secondary to renal disease and chronic diastolic heart failure, EF 55-60% -Resolved with dialysis Hypertension, essential -Blood pressure stable, continue Norvasc Dyslipidemia -Continue statin therapy Anemia due to chronic kidney disease -Hemoglobin stable, follow CBC. Patient is on Epogen. Status post 1 unit of packed RBC transfusion. Seizure disorder -Continue home medication, Dilantin
--- NOTE | 2020-10-27 18:33 | PRG ---
DATE OF SERVICE: 10/27/2020 SUBJECTIVE: Patient was seen and examined at bedside and overnight events noted. Patient denies any shortness of breath or chest pain or palpitation. No history of nausea or vomiting or diarrhea or fever or chills or cramps. OBJECTIVE: GENERAL: This is a well-built male, in no apparent distress. VITAL SIGNS: Temperature 98.1. Heart rate 75. Respiratory rate 16. Blood pressure 127/80. HEENT: Atraumatic, normocephalic. Oral mucosa is moist. NECK: Supple. CARDIOVASCULAR: S1, S2 heard. Rate and rhythm regular. RESPIRATORY: Clear to auscultation. GASTROINTESTINAL: Abdomen is soft. MUSCULOSKELETAL: No tenderness. No edema. DERMATOLOGIC: No skin rash. NEUROLOGIC: Alert and awake and oriented x3. No focal neurologic deficits. Moving all the extremities. PSYCHIATRIC: Mood and affect normal. LABORATORY DATA: Potassium 3.7, BUN is 49, and creatinine is 3.9. ASSESSMENT AND PLAN: 1. End-stage renal disease, continue on hemodialysis as tolerated. 2. Edema, controlled. 3. History of hypertension. 4. Anemia of chronic disease. We will continue to follow. Job ID: [id number]
[2020-10-28 05:42] LABS: Anion Gap 19 mmol/L (10-20); BUN (Urea Nitrogen) 38 mg/dL (8.4-25.7); Calc. Creatinine Clearance 20 mL/min (70-130); Calcium 8.8 mg/dL (7.8-10.44); Carbon Dioxide 25 mmol/L (22-29); Chloride 95 mmol/L (98-107); Glucose 94 mg/dL (70-105); Potassium 3.7 mmol/L (3.5-5.1); Sodium 135 mmol/L (136-145)
[2020-10-28] MEDS ORDERED: Heparin 10,000 UNITS/ 10 ML VIAL ONE (09:45)
[2020-10-28] MEDS: Folic Acid/Vit B Comp W-C PO SCH (10:13)
[2020-10-28] MEDS: Heparin 5,000 UNITS/ML VIAL SC SCH (10:13)
[2020-10-28] MEDS: Sevelamer Carbonate 800 MG TAB PO SCH ×2 (10:13→13:44)
[2020-10-28] MEDS: Metoclopramide HCl 10 MG TAB PO SCH (10:14)
--- NOTE | 2020-10-28 12:40 | PDOC.DS.DS ---
Provider Date of Admission: 10/14/20 13:34 Date of Discharge: 10/28/20 Admitting Provider: Yvan Hurtado MD Consultations: Nephrology Primary Care Physician: Liam Tariq MD Course Hospital Course: Patient is a pleasant 60 years old gentleman who has significant past medical history of hypertension, dyslipidemia, asthma, ESRD not yet on dialysis, renal cancer with status post right nephrectomy, partial nephrectomy, who presented to ED with complaint of generalized swelling and short of breath. Patient apparently was supposed to undergo when tunnel dialysis catheter placement for next week to initiate dialysis. At any rate, patient was admitted for volume overload/generalized anasarca secondary to his end-stage renal disease. Initial work-up in the ED, including CT abdomen pelvic, and chest, showed trace bilateral pleural effusion, also mild/trace pericardial effusion, and suspect right renal mass. Chest x-ray show pulmonary congestion consistent with volume overload. Nephrology was consulted. Patient had left internal jugular triple-lumen catheter placed by Dr. Owens, on 10/17/2020. Dialysis was started, patient appeared to be tolerated well. production support manager was consulted, he had an outpatient dialysis chair arranged per family independence case manager. He will be continue with dialysis Saturday//Saturday. Nephrology is is aware. At this time, patient is stable to discharge. Patient to follow-up with Dr. Loco for ongoing dialysis cares. Resuscitation Status: 10/14/20 13:46 Resuscitation Status Routine Co-Sign Provider: Resuscitation Status: FULL: Full Resuscitation Lab Results: 10/24/20 08:00 10/28/20 05:00 Abnormal Lab Results - Last 48 hrs 10/28/20 05:00: Sodium 135 L, Chloride 95 L, BUN 38 H, Creatinine 8.07 H Microbiology - Entire Visit 10/14/20 16:16 Dialysis - Right Common Femoral Vein Blood Culture - Final NO GROWTH IN 5 DAYS 10/14/20 16:20 Venous blood - Left Hand Blood Culture - Final NO GROWTH IN 5 DAYS Vitals: Vital Signs (12 hours) Temp Pulse Resp BP BP Pulse Ox 10/28/20 07:00 97.9 F 97 16 128/81 95 10/28/20 04:19 97.9 F 90 18 139/77 94 L Weight Admit Weight 315 lb Weight 315 lb 0.649 oz Physical Exam: The patient was seen and examined on the day of discharge. General Appearance: NAD Eye: PERRL ENT: normocephalic atraumatic Neck: supple Respiratory: CTAB Cardiovascular: RRR Gastrointestinal: soft Extremities: no cyanosis, no clubbing Skin: normal turgor Neurological: cranial nerve grossly intact PSYCH: normal affect, normal behavior, A&O x 3 Problem Assessment: Renal Care [facility] . [place] [id number] Your Scheduled Shift and Time are as follows: Days: Saturday, , Saturday Time: 5:45am Start date: 11/01/2020. (Pt to arrive 30 minutes early to fill out admission paperwork). (1) ESRD (end stage renal disease) on dialysis Code(s): N18.6 - END STAGE RENAL DISEASE; Z99.2 - DEPENDENCE ON RENAL DIALYSIS Status: Acute (2) HTN (hypertension) Code(s): I10 - ESSENTIAL (PRIMARY) HYPERTENSION Status: Acute Qualifiers: Hypertension type: essential hypertension Qualified Code(s): I10 - Essential (primary) hypertension (3) Renal mass Code(s): N28.89 - OTHER SPECIFIED DISORDERS OF KIDNEY AND URETER Status: Acute (4) Anemia of renal disease Code(s): N18.9 - CHRONIC KIDNEY DISEASE, UNSPECIFIED; D63.1 - ANEMIA IN CHRONIC KIDNEY DISEASE Status: Chronic (5) Dyslipidemia Code(s): E78.5 - HYPERLIPIDEMIA, UNSPECIFIED Status: Chronic (6) Seizure Code(s): R56.9 - UNSPECIFIED CONVULSIONS Status: Chronic (7) Anasarca associated with disorder of kidney Code(s): N04.9 - NEPHROTIC SYNDROME WITH UNSPECIFIED MORPHOLOGIC CHANGES Status: Resolved Time Spent in discharge related activities (mins): 32 Plan Prescriptions: Folic Acid/Vit B Comp W-C [Nephro-Wilder Tablet] 1 tab PO DAILY #30 tab Sevelamer Carbonate [Renvela] 800 mg PO TID-WM #90 tab Home Medications: Medication Instructions Recorded Confirmed Type ALButerol Sulfate [Ventolin Neb] 1 vial NEB TID 10/15/20 10/15/20 History Albuterol Sulfate [Proair 2 puff IH Q6H PRN 10/15/20 10/15/20 History Digihaler] Amlodipine [Norvasc] 10 mg PO DAILY 10/15/20 10/15/20 History Atorvastatin Calcium 40 mg PO DAILY 10/15/20 10/15/20 History Metoclopramide HCl 1 tab PO TID 10/15/20 10/15/20 History Phenytoin Sodium Extended 3 cap PO HS 10/15/20 10/15/20 History [Dilantin] Ranolazine [Ranexa] 1 tab PO BID 10/15/20 10/15/20 History Torsemide 3 tab PO DAILY 10/15/20 10/15/20 History Folic Acid/Vit B Comp W-C 1 tab PO DAILY #30 tab 10/21/20 Rx [Nephro-Wilder Tablet] Sevelamer Carbonate [Renvela] 800 mg PO TID-WM #90 tab 10/21/20 Rx Allergies: No Known Allergies Allergy (Unverified 10/14/20 12:24) Activity:: Activity as Tolerated Nourishment:: Renal Diet Therapies:: Not Applicable Equipment/Supplies:: Not Applicable IV Therapy:: Not Applicable Referrals: Henry Owens MD [Active] - 3-4 Weeks Hesham Schulz MD [Active] - Liam Tariq MD [Primary Care Provider] - Disposition: HOME Quality CORE MEASURES:: N/A
[2020-10-28] MEDS: Amlodipine 10 MG TAB PO SCH (13:43)
[2020-10-28] MEDS: Atorvastatin Calcium 40 MG TAB PO SCH (13:43)
[2020-10-28 15:42] VITALS: BP 158/72; TEMP 98.1
--- NOTE | 2020-10-28 15:56 | PRG ---
DATE OF SERVICE: 10/28/2020 SUBJECTIVE: Patient was seen and examined at bedside and overnight events noted. Patient denies any shortness of breath or chest pain or palpitation. No history of nausea or vomiting or diarrhea or fever or chills or cramps. OBJECTIVE: GENERAL: This is a well-built male, in no apparent distress. VITAL SIGNS: Temperature 97.9. Heart rate 97. Respiratory rate 20. Blood pressure 128/81. HEENT: Atraumatic, normocephalic. Oral mucosa is moist NECK: Supple. CARDIOVASCULAR: S1, S2 heard. Rate and rhythm regular. RESPIRATORY: Clear to auscultation. GASTROINTESTINAL: Abdomen is soft. MUSCULOSKELETAL: No tenderness. No edema. DERMATOLOGIC: No skin rash. NEUROLOGIC: Alert and awake and oriented x3. No focal neurologic deficits. Moving all the extremities. PSYCHIATRIC: Mood and affect normal. LABORATORY DATA: Potassium 3.7, BUN is 38, creatinine is 8.07. ASSESSMENT AND PLAN: 1. End-stage renal disease. Continue hemodialysis as tolerated. 2. Edema, controlled. 3. Hypertension. 4. Anemia of chronic disease. Continue dialysis as tolerated. Job ID: [id number]
--- NOTE | 2020-10-29 22:17 | EKG ---
Test Reason : Blood Pressure : / mmHG Vent. Rate : 101 BPM Atrial Rate : 101 BPM P-R Int : 174 ms QRS Dur : 090 ms QT Int : 348 ms P-R-T Axes : 053 -21 047 degrees QTc Int : 451 ms Sinus tachycardia Otherwise normal ECG Confirmed by YOLI ISAAC DO ([id number]), city editor EMANUEL JESUS ([id number]) on 10/29/2020 10:17:10 PM Referred By: Confirmed By:YOLI ISAAC DO
== END 2020-10-28 14:45 | disposition home or self-care (01) | DRG 252 ==
LOC: ERS 10:22 → SJJU 13:34
PROVIDERS: ADMIT Internal Medicine; ATTEND Family Medicine
PROC: 02HV33Z Insertion of Infusion Device into Superior Vena Cava, Percutaneous Approach (ICD-10-PCS; principal; 2020-10-14)
PROC: 30233N1 Transfusion of Nonautologous Red Blood Cells into Peripheral Vein, Percutaneous Approach (ICD-10-PCS; 2020-10-14)
PROC: 5A1D70Z Performance of Urinary Filtration, Intermittent, Less than 6 Hours Per Day (ICD-10-PCS; 2020-10-15)
PROC: 3E033XZ Introduction of Vasopressor into Peripheral Vein, Percutaneous Approach (ICD-10-PCS; 2020-10-17)
PROC: 031B09F Bypass Right Radial Artery to Lower Arm Vein with Autologous Venous Tissue, Open Approach (ICD-10-PCS; 2020-10-17)
PROC: 05BD0ZZ Excision of Right Cephalic Vein, Open Approach (ICD-10-PCS; 2020-10-17)
PROC: 0JH63XZ Insertion of Tunneled Vascular Access Device into Chest Subcutaneous Tissue and Fascia, Percutaneous Approach (ICD-10-PCS; 2020-10-17)
PROC: 02HV33Z Insertion of Infusion Device into Superior Vena Cava, Percutaneous Approach (ICD-10-PCS; 2020-10-17)
DX: I13.2 Hypertensive heart and chronic kidney disease with heart failure and with stage 5 chronic kidney disease, or end stage renal disease (principal); N18.6 End stage renal disease; N04.9 Nephrotic syndrome with unspecified morphologic changes; E87.2 Acidosis; E87.1 Hypo-osmolality and hyponatremia; I50.32 Chronic diastolic (congestive) heart failure; N25.81 Secondary hyperparathyroidism of renal origin; E78.5 Hyperlipidemia, unspecified; J44.9 Chronic obstructive pulmonary disease, unspecified; E87.70 Fluid overload, unspecified; D63.1 Anemia in chronic kidney disease; Z20.822 Contact with and (suspected) exposure to COVID-19; E66.01 Morbid (severe) obesity due to excess calories; N25.89 Other disorders resulting from impaired renal tubular function; G40.909 Epilepsy, unspecified, not intractable, without status epilepticus; Z68.42 Body mass index [BMI] 45.0-49.9, adult; Z85.528 Personal history of other malignant neoplasm of kidney; Z90.5 Acquired absence of kidney; Z79.51 Long term (current) use of inhaled steroids; Z79.899 Other long term (current) drug therapy
CPT/HCPCS: 0240U; 36415; 36430; 36556; 71045; 71260; 74177; 76770; 80048; 80053; 80307; 81001; 83605; 83735; 83880; 84100; 84484; 85025; 85379; 85610; 85730; 86580; 86704; 86706; 86803; 86850; 86900; 86901; 87040; 87340; 90935; 93005; 93306; C1752; G0257; J0171; J0360; J0690; J1642; J1644; J2250; J2405; J2704; J2720; J3010; P9016; Q5105; Q9967; S0020

== ENCOUNTER 2020-12-01 12:31 | Inpatient (IN) | payer OTHER ==
[~2020-12-01 12:31] MED LIST: Iopamidol-370 76% 500 ML 1 ML ONE
[2020-12-01] MEDS ORDERED: Albuterol 200 PUFF (6.7GM INHALER) ONE (12:58)
[2020-12-01] MEDS ORDERED: cefTRIAXone\\ROCEPHIN 1 GM VIAL ONE (13:07)
[2020-12-01] MEDS ORDERED: Acetaminophen 500 MG TAB ONE (13:07)
[2020-12-01] MEDS ORDERED: Aspirin Chewable 81 MG TAB ONE (13:07)
[2020-12-01 13:08] LABS: Actual Bicarbonate (HCO3a) 22.8 mEq/L (22-28); Analyzer IN Cardio ER; Base Excess (BEa) 0.9 mEq/L (-2.0 to +3.0); CO2 Tension 27.2 mmHg (35.0-45.0); Calcium, Ionized (arterial) 1.02 mmol/L (1.12-1.30); Carboxyhemoglobin (COHb) 0.8 gm% (0.0-3.0); Hemoglobin (Hb) 9.1 g/dL (14.0-18.0); O2 Tension (PaO2), arterial 77.2 mmHg (80.0-100.0); Potassium - ABG Lab 3.21 mmol/L (3.70-5.30); pH, Arterial 7.54 (7.35-7.45)
[2020-12-01 13:14] LABS: Hemoglobin 8.6 g/dL (14.0-18.0); Mean Corpuscular HGB CONC 32.9 g/dL (32.0-36.0); Mean Corpuscular Hemoglobin 32.7 pg (27.0-31.0); Mean Corpuscular Volume 99.6 fL (78.0-98.0); Mean Platelet Volume 9.1 fL (7.4-10.4); Platelet Count 313 thou/uL (130-400); RBC Distribution Width 14.9 % (11.5-14.5); Red Blood Cell (RBC) Count 2.64 mill/uL (4.70-6.10); White Blood Cell (WBC) Count 13.5 thou/uL (4.8-10.8)
[2020-12-01 13:15] LABS: Puncture Site LRA
[2020-12-01] MEDS ORDERED: Dexamethasone 4 mg/ml Vial ONE (13:22)
[2020-12-01] MEDS ORDERED: cefTRIAXone\\ROCEPHIN 500 MG VIAL ONE (13:22)
[2020-12-01 13:33] LABS: ALT (SGPT) 16 U/L (8-55); AST (SGOT) 32 U/L (5-34); Albumin 3.1 g/dL (3.5-5.0); Alkaline Phosphatase 44 U/L (40-110); Anion Gap 18 mmol/L (10-20); BUN (Urea Nitrogen) 34 mg/dL (8.4-25.7); Bilirubin, Total 0.2 mg/dL (0.2-1.2); Calc. Creatinine Clearance 0 mL/min (70-130); Carbon Dioxide 27 mmol/L (22-29); Chloride 93 mmol/L (98-107); Globulin 4.2 g/dL (2.4-3.5); Glucose 108 mg/dL (70-105); Potassium 3.4 mmol/L (3.5-5.1); Protein, Total 7.3 g/dL (6.0-8.3); Sodium 135 mmol/L (136-145)
[2020-12-01] MEDS ORDERED: Azithromycin 500 MG VIAL ONE (13:33)
[2020-12-01 13:35] LABS: Band 25 % (5-11); Lymphocytes 5 % (21-51); MDiff Complete? YES; Macrocytosis SLIGHT = 6-15 cells (100X) (0-5/hpf); Monocytes 6 % (0-10); Myelocyte 1 % (0-0); Neutrophil 61 % (42-75); Nucleated RBC 1 % (0); Platelet Morphology Comment Appears Adequate; Polychromasia MODERATE = 3-4 cells (100X) (0-2/hpf); Reactive Lymphocytes 2 % (0-10)
[2020-12-01 14:28] LABS: CKMB 0.9 ng/mL (0-6.6)
[2020-12-01] MEDS ORDERED: Heparin 25,000 units/D5W 500 ML ONE (15:12)
[2020-12-01] MEDS ORDERED: Heparin 10,000 UNITS/ 10 ML VIAL ONE (15:12)
[2020-12-01 15:20] LABS: INR-International Normal Ratio 1.1; Prothrombin Time 14.3 sec (12.0-14.7)
[2020-12-01 15:21] LABS: PTT 40.3 sec (22.9-36.1)
[2020-12-01] MEDS ORDERED: Acetaminophen 650 MG Suppository PR PRN (16:42)
[2020-12-01] MEDS ORDERED: Ondansetron PF 4 MG/2 ML Vial IVP PRN (16:42)
[2020-12-01] MEDS ORDERED: Loperamide HCl 2 MG CAP PO PRN ×2 (16:42)
[2020-12-01] MEDS ORDERED: Nitroglycerin 0.4 MG TAB (25 Tab Bottle) SL PRN (16:42)
[2020-12-01] MEDS ORDERED: Ondansetron ODT 4 MG TAB PO PRN (16:42)
[2020-12-01] MEDS ORDERED: Guaifenesin DM 100-10/5 ML UDCUP PO PRN (16:42)
[2020-12-01] MEDS ORDERED: Heparin 25,000 units/D5W 500 ML IVPB SCH (16:45)
[2020-12-01] MEDS ORDERED: Heparin 10,000 UNITS/ 10 ML VIAL SLOW IVP SCH (16:45)
[2020-12-01] MEDS ORDERED: Albuterol 200 PUFF (6.7GM INHALER) INH PRN (16:47)
[2020-12-01] MEDS ORDERED: Aspirin Chewable 81 MG TAB PO SCH (17:00)
[2020-12-01 17:23] LABS: Platelet Count 300 thou/uL (130-400)
[2020-12-01 17:36] LABS: Magnesium 1.8 mg/dL (1.6-2.6)
[2020-12-01 17:39] LABS: Troponin I 0.131 ng/mL (< 0.028)
[2020-12-01 17:59] LABS: CRP (Inflammatory) 39.5 mg/dL (= or < 0.5)
[2020-12-01 20:44] LABS: Troponin I 0.128 ng/mL (< 0.028)
[2020-12-01 21:56] VITALS: BMI 41.0
[2020-12-01] MEDS: Atorvastatin Calcium 40 MG TAB PO SCH (23:49)
[2020-12-01] MEDS: Metoprolol Tartrate 25 MG TAB PO SCH (23:49)
[2020-12-02 05:30] LABS: Anion Gap 25 mmol/L (10-20); BUN (Urea Nitrogen) 48 mg/dL (8.4-25.7); Calc. Creatinine Clearance 16 mL/min (70-130); Carbon Dioxide 18 mmol/L (22-29); Cardiac Risk 4.7 (Less than 4.5); Chloride 94 mmol/L (98-107); Cholesterol 126 mg/dl (< 200 Desired); Glucose 133 mg/dL (70-105); HDL Cholesterol 27 mg/dL (>60 Neg Risk); LDL Cholesterol, Calculated 66 mg/dL; Potassium 3.9 mmol/L (3.5-5.1); Sodium 133 mmol/L (136-145); Triglycerides 163 mg/dL (Less than 150)
[2020-12-02 06:21] LABS: Band 21 % (5-11); Lymphocytes 6 % (21-51); MDiff Complete? YES; Mean Corpuscular HGB CONC 32.6 g/dL (32.0-36.0); Mean Corpuscular Hemoglobin 33.1 pg (27.0-31.0); Mean Platelet Volume 9.5 fL (7.4-10.4); Monocytes 2 % (0-10); Myelocyte 2 % (0-0); Neutrophil 69 % (42-75); Nucleated RBC 2 % (0); Platelet Count 320 thou/uL (130-400); RBC Distribution Width 15.2 % (11.5-14.5); Red Blood Cell (RBC) Count 2.73 mill/uL (4.70-6.10); White Blood Cell (WBC) Count 16.5 thou/uL (4.8-10.8)
[2020-12-02] MEDS ORDERED: Dexamethasone 4 MG TAB PO SCH (08:00)
[2020-12-02] MEDS: Metoprolol Tartrate 25 MG TAB PO SCH ×2 (08:52→20:51)
[2020-12-02] MEDS ORDERED: Prevnar 13-Val Conj/PF 0.5 ML SYRINGE IM ONE (09:00)
[2020-12-02] MEDS: Acetaminophen 325 MG TAB PO PRN ×3 (09:15→17:52)
[2020-12-02] MEDS ORDERED: Heparin 10,000 UNITS/ 10 ML VIAL ONE (10:22)
[2020-12-02] MEDS ORDERED: Albuterol 200 PUFF (6.7GM INHALER) INH PRN (13:51)
[2020-12-02] MEDS: Heparin 5,000 UNITS/ML VIAL SC SCH ×2 (14:04→20:51)
[2020-12-02] MEDS: Sevelamer Carbonate 800 MG TAB PO SCH (17:52)
[2020-12-02] MEDS: Albuterol 200 PUFF (6.7GM INHALER) INH SCH (17:55)
[2020-12-02] MEDS: Atorvastatin Calcium 40 MG TAB PO SCH (20:51)
[2020-12-02] MEDS ORDERED: methylPREDNISolone Sod Succ/PF 125 MG/2 ML VIAL IVP SCH (21:00)
[2020-12-03] MEDS: Acetaminophen 325 MG TAB PO PRN (05:14)
[2020-12-03] MEDS: Albuterol 200 PUFF (6.7GM INHALER) INH SCH ×3 (05:15→18:58)
[2020-12-03 07:13] LABS: Anion Gap 19 mmol/L (10-20); BUN (Urea Nitrogen) 36 mg/dL (8.4-25.7); Calc. Creatinine Clearance 22 mL/min (70-130); Calcium 7.6 mg/dL (7.8-10.44); Carbon Dioxide 21 mmol/L (22-29); Chloride 94 mmol/L (98-107); Glucose 99 mg/dL (70-105); Potassium 3.4 mmol/L (3.5-5.1); Sodium 131 mmol/L (136-145)
[2020-12-03 08:01] LABS: Band 10 % (5-11); Hemoglobin 7.8 g/dL (14.0-18.0); Lymphocytes 15 % (21-51); MDiff Complete? YES; Mean Corpuscular HGB CONC 33.3 g/dL (32.0-36.0); Mean Corpuscular Hemoglobin 33.3 pg (27.0-31.0); Mean Platelet Volume 8.9 fL (7.4-10.4); Metamyelocyte 1 % (0-0); Monocytes 1 % (0-10); Myelocyte 1 % (0-0); Neutrophil 72 % (42-75); Nucleated RBC 1 % (0); Platelet Count 379 thou/uL (130-400); RBC Distribution Width 15.1 % (11.5-14.5); Red Blood Cell (RBC) Count 2.35 mill/uL (4.70-6.10); White Blood Cell (WBC) Count 19.1 thou/uL (4.8-10.8)
[2020-12-03] MEDS: Torsemide 20 MG TAB PO SCH (08:12)
[2020-12-03] MEDS: Metoprolol Tartrate 25 MG TAB PO SCH ×2 (08:12→21:48)
[2020-12-03] MEDS: Sevelamer Carbonate 800 MG TAB PO SCH ×3 (08:12→16:18)
[2020-12-03] MEDS: Folic Acid/Vit B Comp W-C PO SCH (08:12)
[2020-12-03] MEDS: Dexamethasone 4 mg/ml Vial SLOW IVP SCH (08:14)
[2020-12-03] MEDS: Amlodipine 10 MG TAB PO SCH (08:14)
[2020-12-03] MEDS: Heparin 5,000 UNITS/ML VIAL SC SCH ×3 (08:15→21:50)
[2020-12-03] MEDS: Piperacillin/Tazobactam 3.375 GM in Sodium Chloride 0.9% 100 ML IVPB SCH ×3 (11:32→22:20)
[2020-12-03 17:02] LABS: Platelet Count 402 thou/uL (130-400)
[2020-12-03] MEDS: Atorvastatin Calcium 40 MG TAB PO SCH (21:48)
[2020-12-04] MEDS: Piperacillin/Tazobactam 3.375 GM in Sodium Chloride 0.9% 100 ML IVPB SCH ×4 (05:06→20:43)
[2020-12-04 06:15] LABS: Anion Gap 22 mmol/L (10-20); BUN (Urea Nitrogen) 51 mg/dL (8.4-25.7); Calc. Creatinine Clearance 18 mL/min (70-130); Calcium 7.8 mg/dL (7.8-10.44); Carbon Dioxide 20 mmol/L (22-29); Chloride 93 mmol/L (98-107); Glucose 121 mg/dL (70-105); Sodium 131 mmol/L (136-145)
[2020-12-04 06:16] LABS: ALT (SGPT) 14 U/L (8-55); AST (SGOT) 28 U/L (5-34); Albumin 2.8 g/dL (3.5-5.0); Alkaline Phosphatase 44 U/L (40-110); Bilirubin, Direct 0.1 mg/dL (0.1-0.3); Bilirubin, Total 0.2 mg/dL (0.2-1.2); Protein, Total 6.7 g/dL (6.0-8.3)
[2020-12-04 07:53] LABS: Band 24 % (5-11); Hemoglobin 7.8 g/dL (14.0-18.0); Lymphocytes 8 % (21-51); MDiff Complete? YES; Mean Corpuscular Hemoglobin 33.3 pg (27.0-31.0); Mean Platelet Volume 9.2 fL (7.4-10.4); Metamyelocyte 4 % (0-0); Myelocyte 1 % (0-0); Neutrophil 63 % (42-75); Nucleated RBC 3 % (0); Platelet Count 356 thou/uL (130-400); Red Blood Cell (RBC) Count 2.35 mill/uL (4.70-6.10); Toxic Granulation SLIGHT; White Blood Cell (WBC) Count 20.9 thou/uL (4.8-10.8)
[2020-12-04] MEDS: Albuterol 200 PUFF (6.7GM INHALER) INH SCH ×3 (08:29→19:06)
[2020-12-04] MEDS: Sevelamer Carbonate 800 MG TAB PO SCH ×3 (09:27→16:13)
[2020-12-04] MEDS: Torsemide 20 MG TAB PO SCH (09:28)
[2020-12-04] MEDS: Metoprolol Tartrate 25 MG TAB PO SCH ×2 (09:28→20:41)
[2020-12-04] MEDS: Amlodipine 10 MG TAB PO SCH (09:29)
[2020-12-04] MEDS: Folic Acid/Vit B Comp W-C PO SCH (09:29)
[2020-12-04] MEDS: Heparin 5,000 UNITS/ML VIAL SC SCH ×3 (09:30→20:40)
[2020-12-04] MEDS: Dexamethasone 4 mg/ml Vial SLOW IVP SCH (09:30)
[2020-12-04] MEDS ORDERED: Dexamethasone 4 mg/ml Vial SLOW IVP SCH (15:00)
[2020-12-04 16:30] LABS: CKMB 1.2 ng/mL (0-6.6)
[2020-12-04] MEDS: Atorvastatin Calcium 40 MG TAB PO SCH (20:42)
[2020-12-05] MEDS: Piperacillin/Tazobactam 3.375 GM in Sodium Chloride 0.9% 100 ML IVPB SCH ×4 (03:55→21:57)
[2020-12-05] MEDS: Albuterol 200 PUFF (6.7GM INHALER) INH SCH ×3 (06:30→17:59)
[2020-12-05] MEDS: Dexamethasone 4 mg/ml Vial SLOW IVP SCH (07:39)
[2020-12-05] MEDS: Sevelamer Carbonate 800 MG TAB PO SCH ×3 (07:40→17:55)
[2020-12-05] MEDS: Folic Acid/Vit B Comp W-C PO SCH (07:40)
[2020-12-05] MEDS: Heparin 5,000 UNITS/ML VIAL SC SCH ×3 (07:41→21:52)
[2020-12-05] MEDS: Torsemide 20 MG TAB PO SCH (07:42)
[2020-12-05] MEDS ORDERED: Heparin 10,000 UNITS/ 10 ML VIAL ONE (08:49)
[2020-12-05 09:12] LABS: Anion Gap 20 mmol/L (10-20); BUN (Urea Nitrogen) 71 mg/dL (8.4-25.7); Calc. Creatinine Clearance 15 mL/min (70-130); Calcium 7.7 mg/dL (7.8-10.44); Carbon Dioxide 23 mmol/L (22-29); Chloride 94 mmol/L (98-107); Glucose 126 mg/dL (70-105); Potassium 3.3 mmol/L (3.5-5.1); Sodium 134 mmol/L (136-145)
[2020-12-05 09:14] LABS: ALT (SGPT) 16 U/L (8-55); AST (SGOT) 23 U/L (5-34); Albumin 2.7 g/dL (3.5-5.0); Alkaline Phosphatase 47 U/L (40-110); Bilirubin, Direct 0.1 mg/dL (0.1-0.3); Bilirubin, Total 0.2 mg/dL (0.2-1.2); Protein, Total 6.6 g/dL (6.0-8.3)
[2020-12-05 09:38] LABS: Anisocytosis SLIGHT = 6-15 cells (100X) (0-5/hpf); Band 10 % (5-11); Hemoglobin 7.9 g/dL (14.0-18.0); Lymphocytes 5 % (21-51); MDiff Complete? YES; Mean Corpuscular HGB CONC 34.4 g/dL (32.0-36.0); Mean Corpuscular Hemoglobin 34.6 pg (27.0-31.0); Mean Platelet Volume 8.6 fL (7.4-10.4); Metamyelocyte 2 % (0-0); Monocytes 9 % (0-10); Myelocyte 3 % (0-0); Neutrophil 71 % (42-75); Platelet Count 477 thou/uL (130-400); Platelet Morphology Comment Appears Increased; RBC Distribution Width 14.8 % (11.5-14.5); Red Blood Cell (RBC) Count 2.27 mill/uL (4.70-6.10); White Blood Cell (WBC) Count 21.4 thou/uL (4.8-10.8)
[2020-12-05] MEDS ORDERED: EPOETIN ALFA-EPBX (ESRD) 10,000 UNIT/ML VIAL IVP SCH (10:00)
[2020-12-05] MEDS: Metoprolol Tartrate 25 MG TAB PO SCH ×2 (12:16→21:53)
[2020-12-05] MEDS: Amlodipine 10 MG TAB PO SCH (12:16)
[2020-12-05] MEDS ORDERED: Potassium Chloride 10 MEQ TAB PO SCH (17:00)
[2020-12-05 18:00] LABS: Hemoglobin 9.1 g/dL (14.0-18.0); Platelet Count 495 thou/uL (130-400)
[2020-12-05] MEDS: Atorvastatin Calcium 40 MG TAB PO SCH (21:52)
[2020-12-06] MEDS: Piperacillin/Tazobactam 3.375 GM in Sodium Chloride 0.9% 100 ML IVPB SCH ×3 (04:15→16:27)
[2020-12-06 05:51] LABS: ALT (SGPT) 16 U/L (8-55); AST (SGOT) 25 U/L (5-34); Albumin 2.7 g/dL (3.5-5.0); Alkaline Phosphatase 53 U/L (40-110); Anion Gap 19 mmol/L (10-20); BUN (Urea Nitrogen) 47 mg/dL (8.4-25.7); Bilirubin, Direct 0.1 mg/dL (0.1-0.3); Bilirubin, Total 0.2 mg/dL (0.2-1.2); Calc. Creatinine Clearance 22 mL/min (70-130); Calcium 7.6 mg/dL (7.8-10.44); Carbon Dioxide 24 mmol/L (22-29); Chloride 98 mmol/L (98-107); Glucose 99 mg/dL (70-105); Potassium 3.5 mmol/L (3.5-5.1); Protein, Total 6.6 g/dL (6.0-8.3); Sodium 137 mmol/L (136-145)
[2020-12-06 05:58] LABS: Hemoglobin 8.3 g/dL (14.0-18.0); Mean Corpuscular Hemoglobin 33.1 pg (27.0-31.0); Mean Platelet Volume 9.2 fL (7.4-10.4); Platelet Count 461 thou/uL (130-400); RBC Distribution Width 14.8 % (11.5-14.5); White Blood Cell (WBC) Count 21.1 thou/uL (4.8-10.8)
[2020-12-06 06:43] LABS: Band 16 % (5-11); Lymphocytes 17 % (21-51); MDiff Complete? YES; Monocytes 8 % (0-10); Neutrophil 56 % (42-75); Nucleated RBC 2 % (0); Reactive Lymphocytes 3 % (0-10)
[2020-12-06] MEDS: Albuterol 200 PUFF (6.7GM INHALER) INH SCH ×3 (06:47→18:56)
[2020-12-06] MEDS: Dexamethasone 4 mg/ml Vial SLOW IVP SCH (08:57)
[2020-12-06] MEDS: Heparin 5,000 UNITS/ML VIAL SC SCH ×2 (09:00→16:27)
[2020-12-06] MEDS: Folic Acid/Vit B Comp W-C PO SCH (09:01)
[2020-12-06] MEDS: Metoprolol Tartrate 25 MG TAB PO SCH (09:01)
[2020-12-06] MEDS: Sevelamer Carbonate 800 MG TAB PO SCH ×3 (09:03→16:27)
[2020-12-06] MEDS: Torsemide 20 MG TAB PO SCH (09:03)
[2020-12-06] MEDS: Amlodipine 10 MG TAB PO SCH (09:04)
[2020-12-06 16:42] VITALS: BP 151/85; TEMP 97.8
== END 2020-12-06 18:46 | disposition home or self-care (01) | DRG 871 ==
LOC: ERS 12:31 → ERHOLD 16:53 → 2SW 21:49
PROVIDERS: ADMIT Internal Medicine; ATTEND Internal Medicine
PROC: 8E0ZXY6 Isolation (ICD-10-PCS; principal; 2020-12-01)
PROC: 5A1D70Z Performance of Urinary Filtration, Intermittent, Less than 6 Hours Per Day (ICD-10-PCS; 2020-12-02)
DX: A41.89 Other specified sepsis (principal); U07.1 COVID-19; J12.82 Pneumonia due to coronavirus disease 2019; I21.A1 Myocardial infarction type 2; J96.01 Acute respiratory failure with hypoxia; I12.0 Hypertensive chronic kidney disease with stage 5 chronic kidney disease or end stage renal disease; E87.2 Acidosis; J45.909 Unspecified asthma, uncomplicated; E78.00 Pure hypercholesterolemia, unspecified; D63.1 Anemia in chronic kidney disease; R56.9 Unspecified convulsions; E78.5 Hyperlipidemia, unspecified; Z90.49 Acquired absence of other specified parts of digestive tract; Z79.51 Long term (current) use of inhaled steroids; Z79.899 Other long term (current) drug therapy; Z85.528 Personal history of other malignant neoplasm of kidney; Z99.2 Dependence on renal dialysis
CPT/HCPCS: 36415; 36600; 71045; 71275; 80048; 80053; 80061; 80076; 82553; 82607; 82728; 82746; 82805; 83605; 83735; 83880; 84145; 84443; 84484; 85014; 85018; 85025; 85049; 85379; 85610; 85730; 86140; 87040; 90935; 93005; 94150; 96365; 96366; 96367; 96375; 96376; G0257; J0456; J0696; J1100; J1644; J2543; J3490; J8540; Q5105; Q9967

== ENCOUNTER 2021-08-01 10:22 | Outpatient (CLI) | payer MEDICARE ==
[2021-08-01 21:47] LABS: SARS-CoV-2 PCR by NAA Not Detected (NotDetected)
== END 2021-08-01 10:23 | disposition home or self-care (01) ==
LOC: LABBT 10:22
PROVIDERS: ATTEND Internal Medicine Cardiovascular Disease
DX: Z01.812 Encounter for preprocedural laboratory examination (principal); N18.6 End stage renal disease; J45.909 Unspecified asthma, uncomplicated; R07.9 Chest pain, unspecified; Z20.822 Contact with and (suspected) exposure to COVID-19
CPT/HCPCS: U0003; U0005

== ENCOUNTER 2021-08-04 05:47 | Day surgery (SDC) | payer MEDICARE ==
[2021-08-03 09:56] VITALS: BMI 39.8
[2021-08-04 07:12] LABS: Hemoglobin 12.2 g/dL (14.0-18.0); Mean Corpuscular HGB CONC 33.3 g/dL (32.0-36.0); Mean Corpuscular Hemoglobin 37.4 pg (27.0-31.0); Mean Platelet Volume 8.3 fL (7.4-10.4); Platelet Count 288 thou/uL (130-400); Red Blood Cell (RBC) Count 3.25 mill/uL (4.70-6.10); White Blood Cell (WBC) Count 10.9 thou/uL (4.8-10.8)
[2021-08-04 07:27] LABS: Anion Gap 19 mmol/L (10-20); BUN (Urea Nitrogen) 42 mg/dL (8.4-25.7); Calc. Creatinine Clearance 19 mL/min (70-130); Calcium 9.7 mg/dL (7.8-10.44); Carbon Dioxide 24 mmol/L (22-29); Cardiac Risk 3.6 (Less than 4.5); Chloride 98 mmol/L (98-107); Cholesterol 148 mg/dl (< 200 Desired); Glucose 84 mg/dL (70-105); HDL Cholesterol 41 mg/dL (>60 Neg Risk); LDL Cholesterol, Calculated 82 mg/dL; Potassium 4.8 mmol/L (3.5-5.1); Sodium 136 mmol/L (136-145); Triglycerides 123 mg/dL (Less than 150)
[2021-08-04 07:38] LABS: Band 4 % (5-11); Lymphocytes 19 % (21-51); MDiff Complete? YES; Macrocytosis SLIGHT = 6-15 cells (100X) (0-5/hpf); Metamyelocyte 1 % (0-0); Monocytes 17 % (0-10); Myelocyte 2 % (0-0); Neutrophil 57 % (42-75); Platelet Morphology Comment Appears Adequate; Polychromasia SLIGHT = 2-3 cells (100X) (0-2/hpf)
[2021-08-04] MEDS ORDERED: Lidocaine 1% (PF) 30 ML VIAL ONE (08:09)
[2021-08-04] MEDS ORDERED: Fentanyl 100 MCG/2 ML VIAL ONE ×2 (08:25→11:42)
[2021-08-04] MEDS ORDERED: Midazolam HCl 2 mg/2 ml Vial ONE (08:25)
[2021-08-04] MEDS ORDERED: Heparin 10,000 UNITS/ 10 ML VIAL ONE ×2 (09:00→09:09)
[2021-08-04] MEDS ORDERED: TICAGRELOR 90 MG TABLET ONE (09:21)
[2021-08-04] MEDS ORDERED: Iopamidol 370 76% 100 ML VIAL ONE (10:04)
== END 2021-08-04 14:46 | disposition home or self-care (01) ==
LOC: SDC 05:47
PROVIDERS: ATTEND Internal Medicine Cardiovascular Disease
PROC: 02703ZZ Dilation of Coronary Artery, One Artery, Percutaneous Approach (ICD-10-PCS; principal; 2021-08-04)
DX: R07.9 Chest pain, unspecified (principal); C64.9 Malignant neoplasm of unspecified kidney, except renal pelvis; I12.0 Hypertensive chronic kidney disease with stage 5 chronic kidney disease or end stage renal disease; N18.6 End stage renal disease; Z79.82 Long term (current) use of aspirin; Z79.899 Other long term (current) drug therapy; Z86.16 Personal history of COVID-19; Z99.2 Dependence on renal dialysis
CPT/HCPCS: 80048; 80061; 85025; 85347 ×2; 93005; C1725; C1769; C9600; 36415; 92928; 99152; 99153; J1644; J2001; J2250; J3010